=== PATIENT | male | born 1945 | race Caucasian/White ===

== ENCOUNTER 2018-06-11 07:45 | Inpatient (IN) | payer OTHER ==
[~2018-06-11] VITALS: Ht 180.3 cm; Wt 100.3 kg
--- NOTE | 2018-06-11 08:02 | ED DYSPNEA/ASTHMA COMPLAINT ---
History of Present Illness General Chief Complaint: Dyspnea (COPD, CHF, Other) Stated Complaint: FALL/SOB Source: patient, old records, EMS Exam Limitations: poor historian Vital Signs & Intake/Output Vital Signs & Intake/Output Vital Signs Date Time Temp Pulse Resp B/P B/P Pulse O2 O2 Flow FiO2 Mean Ox Delivery Rate 06/14 0913 99 126/64 06/14 0913 99 16/64 06/14 0812 98.9 92 22 122/60 88 Nasal 5.0L Cannula 06/14 07 98.9 88 124/62 06/14 0000 91 Nasal 3.0L Cannula 06/13 2200 97 140/78 91 06/13 2155 97.9 98 20 160/62 91 Nasal 2.0L Cannula 06/13 1750 92 Nasal 2.0L Cannula 06/13 1600 91 Nasal 2.0L Cannula 06/13 1538 19 06/13 1410 97.5 94 91 126/72 91 Nasal 2.0L Cannula 06/13 1050 90 Nasal 2.0L Cannula ED Intake and Output 06/14 0000 06/13 1200 Intake Total 730 120 Output Total 500 600 Balance 230 -480 Intake, IV 10 Intake, Oral 720 120 Number 2 Bowel Movements Output, Urine 500 600 Allergies Coded Allergies: Penicillins (Severe, SWELLING THROAT 06/11/18) Reconcile Medications Albuterol Sulfate (Ventolin Hfa) 90 MCG HFA.AER.AD 2 PUF INH Q4-6 PRN PRN SHORTNESS OF BREATH (Reported) Albuterol Sulfate 2.5 MG/3 ML (0.083 %) VIAL.NEB 1 Vial INH/TIMOTHY Q4P PRN SHORTNESS OF BREATH (Reported) Amiodarone HCl 200 MG TABLET 1 TAB PO DAILY AFIB Aspirin (Aspirin*) 81 MG TAB.CHEW 1 TAB PO DAILY HEART HEALTH (Reported) Cholecalciferol (Vitamin D3) 1,000 UNIT TABLET 1,000 IU PO DAILY LOW VITAMIN D Clonazepam 0.5 MG TABLET 1 TAB PO DAILY ANXIETY (Reported) Cyanocobalamin (Vitamin B-12) 1,000 MCG TABLET 2 TAB PO DAILY low vitamin b12 level Fluticasone/Salmeterol (Advair 250-50 Diskus) 250 MCG-50 MCG/DOSE BLST.W.DEV 1 PUF INH BID BREATHING PROBLEMS (Reported) Gabapentin 600 MG TABLET 1 TAB PO TID UNKNOWN (Reported) Meloxicam 15 MG TABLET 1 TAB PO DAILY PRN PAIN (Reported) Midodrine HCl 5 MG TABLET 1 TAB PO BID BP (Reported) Mirtazapine 15 MG TABLET 1 TAB PO QPM SLEEP (Reported) Moxifloxacin HCl 400 MG TABLET 400 MG PO DAILY pneumonia Omeprazole 20 MG CAPSULE.DR 1 CAP PO BID GI (Reported) Oxycodone HCl/Acetaminophen (Oxycodone-Acetaminophen 10-325) 10 MG-325 MG TABLET 1 TAB PO BIDP PRN PAIN (Reported) Prednisone 10 MG TABLET 1 TAB PO SEE INSTRUCT COPD TAKE 4 PER DAY FOR 2 DAYS TAKE 3/DAY 2 DAYS TAKE 2/DAY 2 DAYS TAKE 1/DAY 2 DAYS Tamsulosin HCl 0.4 MG CAP.ER.24H 1 CAP PO DAILY BPH (Reported) Tizanidine HCl 4 MG TABLET 1 TAB PO QPM PRN SPASMS (Reported) Warfarin Sodium (Coumadin) 4 MG TABLET 1 TAB PO 1700 BLOOD THINNER (Reported) Triage Nurses Notes Reviewed? yes HPI: pt presents for evaluation of dyspnea. he states he feels this way "every morning" but cannot say why he called EMS today. History taking is somewhat limited as the patient answers questions in a very limited manner and his attention seems to drift. Past History Medical History Any Pertinent Medical History? 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 No Review of Systems Review of Systems Constitutional: Reports: no symptoms. EENTM: Reports: no symptoms. Respiratory: Reports: see HPI. Cardiovascular: Reports: no symptoms. GI: Reports: no symptoms. Genitourinary: Reports: no symptoms. Musculoskeletal: Reports: no symptoms. Skin: Reports: no symptoms. Neurological/Psychological: Reports: no symptoms. Hematologic/Endocrine: Reports: no symptoms. Immunologic/Allergic: Reports: no symptoms. All Other Systems: Reviewed and Negative Physical Exam Physical Exam Respiratory: SEE BELOW Comments: Gen.: Well-nourished, well-developed, no acute respiratory distress. Head: Normocephalic, atraumatic. Eyes: Normal inspection bilaterally Ears: Normal inspection bilaterally Nose: Normal inspection Throat/mouth : Moist mucosa Neck: Supple, full range of motion, no goiter Heart: Regular rate and rhythm, no murmurs rubs or gallops Lungs: Decreased air entry over the right chest, normal air entry over the left chest with scattered wheezes bilaterally Chest: Nontender Back: Normal range of motion Abdomen: Soft, nontender, nondistended, normal bowel sounds, well-healed midline surgical scar (due to prior AAA repair) Extremities: Normal range of motion grossly, equal radial pulses, no cyanosis clubbing or edema, no lower extremity edema Neurologic: Cranial nerves grossly intact, speech is clear Skin: warm and dry Psychiatric: Calm, cooperative, no apparent delusions or hallucinations Core Measures ACS in differential dx? Yes CVA/TIA Diagnosis Yes Sepsis Present: No Sepsis Focused Exam Completed? No Progress Differential Diagnosis: AMI, bronchitis, CHF, COPD, pneumonia, pneumothorax, unstable angina Plan of Care: Orders Procedure Date/time Status Lab Add-on Test 06/14 09 Active Transfer patient to 06/14 0906 Active B-TYPE NATRIURETIC PEP (BNP) 06/14 0835 Active BASIC ELECTROLYTES PLUS BUN&CR 06/14 0835 Active XRY-PORTABLE CHEST XRAY 06/14 0823 Active TROPONIN LEVEL 06/14 0823 Active EKG 06/14 0823 Active PROTHROMBIN TIME 06/14 0600 Complete CBC WITHOUT DIFFERENTIAL 06/14 0600 Active OXYGEN SETUP (GEN) 06/14 0527 Complete ARTERIAL BLOOD GAS (GEN) 06/14 UNK Active Lab Add-on Test 06/14 UNK Active Therapeutic Activities 06/13 UNK Complete Gait Training 06/13 UNK Complete Current Medications Sig/Mark Start time Last Medication Dose Stop Time Status Admin Methylprednisolone 40 MG Q8 06/14 1400 AC (Solumedrol) Guaifenesin 600 MG Q12 06/13 2100 AC 06/14 (Mucinex) 0912 Lactobacillus 1 CAP DAILY 06/13 1215 AC 06/14 Acidophilus 0912 (Probiotic) Albuterol Sulfate 3 ML EVERY 4 HRS/AWAKE 06/12 2000 AC 06/14 (Proventil) 0806 Cyanocobalamin 1,000 MCG DAILY 06/12 1456 AC 06/14 (Vitamin B12) 0912 Cholecalciferol 1,000 IU DAILY 06/12 1123 AC 06/14 (Vitamin D) 0913 Amiodarone HCl 200 MG DAILY 06/12 0900 AC 06/14 (Cordarone) 0913 Moxifloxacin HCl 400 MG DAILY 06/12 0900 AC 06/14 (Avelox) 09 Gabapentin 600 MG BID 06/11 2100 AC 06/14 (Neurontin) 09 Midodrine 5 MG BID 06/11 2100 AC 06/14 (Pro-Amatine) 09 Mirtazapine 15 MG QPM 06/11 2100 AC 06/13 (Remeron) 2113 Omeprazole 20 MG BID 06/11 2100 AC 06/14 (Prilosec) 913 Albuterol Sulfate 2 PUF Q4-6 PRN PRN 06/11 1530 AC (Ventolin) Tizanidine HCl 4 MG QPM PRN 06/11 1530 AC (Zanaflex) Tamsulosin HCl 0.4 MG DAILY 06/11 1527 AC 06/14 (Flomax) 09 Clonazepam 0.5 MG DAILY 06/11 1525 AC 06/14 (KlonoPIN) 06/18 1524 0912 Laboratory Tests 06/14/18 0835: Sodium Pending, Potassium Pending, Chloride Pending, Carbon Dioxide Pending, Anion Gap Pending, BUN Pending, Creatinine Pending, BUN/Creatinine Ratio Pending , Troponin I 0.03, Oed-J-Fmyphfiyoer Pept Pending 06/14/18 0558: PT 21.8 H, INR 1.99 H, CBC w Diff Pending, WBC Pending, RBC Pending, Hgb Pending, Hct Pending, MCV Pending, MCH Pending, MCHC Pending, RDW Pending, Plt Count Pending, MPV Pending, Gran % Pending, Lymphocytes % Pending, Monocytes % Pending, Eosinophils % Pending, Basophils % Pending, Absolute Granulocytes Pending, Absolute Lymphocytes Pending, Absolute Monocytes Pending, Absolute Eosinophils Pending, Absolute Basophils Pending Diagnostic Imaging: Discussed w/RAD: Radiology Read. CXR Impression: PATIENT: NAYAN OLSON PRESENT AGE: 72 PATIENT ACCOUNT NO: [id number] : 43 LOCATION: [facility] ORDERING PHYSICIAN: Paco Shah MD SERVICE DATE: 06/11/18 EXAM TYPE: RAD - XRY-PORTABLE CHEST XRAY EXAMINATION: XR PORTABLE CHEST CLINICAL INFORMATION: History of right lobectomy. Dyspnea and wheezing. COMPARISON: None TECHNIQUE: Portable frontal view of the chest was obtained. FINDINGS: The interpretation of the chest abnormalities is limited in the absence of comparison exams. The upper half of the right hemithorax is completely opacified, right hilum is elevated, and there is slight right-sided shift of the cardiomediastinal silhouette. There are vertical, linear opacities of scarring in the right lower lung. Correlate for history of right upper lobectomy; query whether patient received radiation therapy to the right chest, as well. These radiographs - in the absence of comparison exams - do not allow exclusion of a recurrent tumor. Patchy, hazy opacity is present in the left lower lobe. This could represent pneumonia, if in the right clinical context. No pleural effusion or pneumothorax. Cardiac silhouette is enlarged. Cardiac loop recorder projects over the left chest. The visualized bones are intact. IMPRESSION: 1. Volume loss of the right hemithorax from remote right upper lobectomy. The upper half of the right hemithorax is completely opacified, possibly representing chronically loculated pleural effusion and fibrotic changes, although it is not possible to exclude any underlying tumor in the upper chest. There are no comparison exams. 2. Patchy, hazy opacity in the left lower lung could represent pneumonia, if in the right clinical context. 3. Cardiomegaly. DICTATED BY: Adolfo Morris MD DATE/TIME DICTATED:06/11/18829 DRIVER MANAGER:BASSAM DATE/TIME TRANSCRIBED:829 CONFIDENTIAL, DO NOT COPY WITHOUT APPROPRIATE AUTHORIZATION. < Electronically signed in Other Vendor System> SIGNED BY: Adolfo Morris MD 06/11/18 0841 Initial ED EKG: NSR, rate (100), no ST T wave changes Comments: 06/11/2018 10:33:44 AM I have updated Nayan and his family on test results. He offers no complaints currently other than feeling thirsty. His daughter states that he has a history of atrial fibrillation as well as the COPD and lung cancer history is. He has not taken his morning medications. They have contacted his doctor's office in [place] and are expecting and updated medication list shortly. 06/11/2018 1:37:06 PM MOD updated on patient's clinical course including a bloody sputum specimen obtained. Departure Departure Disposition: STILL A PATIENT Condition: Stable Clinical Impression Primary Impression: Pneumonia Qualifiers: Pneumonia type: due to unspecified organism Laterality: left Lung location: lower lobe of lung Qualified Code: J18.1 - Lobar pneumonia, unspecified organism Secondary Impressions: Elevated brain natriuretic peptide (BNP) level, History of lobectomy of lung, History of lung cancer, Renal insufficiency Departure Forms: Customer Survey General Discharge Information Prescriptions: Current Visit Scripts Moxifloxacin HCl 400 MG PO DAILY #5 TAB Prednisone 1 TAB PO SEE INSTRUCT #20 TAB TAKE 4 PER DAY FOR 2 DAYS TAKE 3/DAY 2 DAYS TAKE 2/DAY 2 DAYS TAKE 1/DAY 2 DAYS Cyanocobalamin (Vitamin B-12) 2 TAB PO DAILY #60 TAB Cholecalciferol (Vitamin D3) 1,000 IU PO DAILY #30 TAB Amiodarone HCl 1 TAB PO DAILY #30 TAB Admission Note Spoke With: Regino FRANKLIN,Letitia Rivera Documentation of Exam: Documentation of any treatments & extenuating circumstances including Concerns Regarding Discharge (functional status, medication knowledge or non-compliance, living conditions, etc.) that warrant an admission rather than observation: Patient presents for worsening shortness of breath, productive cough and fever. His chest x-ray reveals a left lower lobe infiltrate. The patient has a history of COPD and prior lobectomy secondary to lung cancer. Upon presentation to the emergency department patient's oxygen saturation was only 91% despite prehospital treatment with a DuoNeb and Solu-Medrol. I do not feel this patient can be safely treated as an outpatient. I feel the exertion of outpatient treatment would worsen his hypoxia and potentially provoke acute coronary syndrome respiratory failure and mortality. Feels patient requires hospitalization for continued nebulized bronchodilators and treatment of his pneumonia with IV antibiotics and oxygen supplementation as needed. The patient did not respond initially to treatment and infectious disease consultation for pulmonology consultation should be considered. Given this patient's advanced age and multiple medical comorbidities including his COPD and prior lung cancer I feel his treatment will be prolonged and potentially comp located. Require a multiple day hospitalization. Critical Care Note Critical Care Note Critical Care Time: 30-74 min
--- NOTE | 2018-06-11 08:41 | RADIOLOGY REPORT ---
EXAMINATION: XR PORTABLE CHEST CLINICAL INFORMATION: History of right lobectomy. Dyspnea and wheezing. COMPARISON: None TECHNIQUE: Portable frontal view of the chest was obtained. FINDINGS: The interpretation of the chest abnormalities is limited in the absence of comparison exams. The upper half of the right hemithorax is completely opacified, right hilum is elevated, and there is slight right-sided shift of the cardiomediastinal silhouette. There are vertical, linear opacities of scarring in the right lower lung. Correlate for history of right upper lobectomy; query whether patient received radiation therapy to the right chest, as well. These radiographs - in the absence of comparison exams - do not allow exclusion of a recurrent tumor. Patchy, hazy opacity is present in the left lower lobe. This could represent pneumonia, if in the right clinical context. No pleural effusion or pneumothorax. Cardiac silhouette is enlarged. Cardiac loop recorder projects over the left chest. The visualized bones are intact. IMPRESSION: 1. Volume loss of the right hemithorax from remote right upper lobectomy. The upper half of the right hemithorax is completely opacified, possibly representing chronically loculated pleural effusion and fibrotic changes, although it is not possible to exclude any underlying tumor in the upper chest. There are no comparison exams. 2. Patchy, hazy opacity in the left lower lung could represent pneumonia, if in the right clinical context. 3. Cardiomegaly.
[2018-06-11 09:02] LABS: ABSOLUTE BASOPHIL COUNT 0 /CUMM (0.0-0.2); ABSOLUTE EOSINOPHIL COUNT 0.1 /CUMM (0.0-0.7); ABSOLUTE GRANULOCYTE CT 8.2 /CUMM (1.4-6.5); ABSOLUTE LYMPH COUNT 0.6 /CUMM (1.2-3.4); ABSOLUTE MONOCYTE COUNT 0.6 /CUMM (0.10-0.60); BASOPHIL % 0.1 % (0.0-2.0); EOSINOPHIL % 0.6 % (0-5); GRANULOCYTE % 86.7 % (42.2-75.2); HEMATOCRIT 33.3 % (42-52); MEAN CORPUSCULAR HGB 29.6 PG (27.0-31.0); MEAN CORPUSCULAR HGB CONC 33.3 G/DL (33.0-37.0); MEAN PLATELET VOLUME 8.3 FL (7.4-10.4); PLATELET COUNT 211 /CUMM (130-400); RBC DISTRIBUTION WIDTH 17.9 % (11.5-14.5); RED BLOOD CELL CT 3.74 /CUMM (4.70-6.10); WHITE BLOOD CELL COUNT 9.4 /CUMM (4.8-10.8)
--- NOTE | 2018-06-11 11:21 | History & Physical ---
Rubina Gerber MD 06/11/18 1121: General Information and HPI MD Statement: I have seen and personally examined JORDAN OLSON and documented this H&P. The patient is a 72 year old M who presented with a patient stated chief complaint of altered mental status and shortness of breath. Source of Information: patient, family Exam Limitations: no limitations History of Present Illness: 72 year old male with a PMH significant for COPD, afib, lung cancer sp right upper lobectomy with one year of chemo and radiation, vascular disease sp AAA repair 7 years ago, afib with implanted recorder, that is BIBA for complaints of dyspnea and altered mental status. Much of the history was given by the and daughter as the patient was sleepy and deferred to them to speak. He did nod to confirm information given was correct. The patient and his are in the area from [place] where they live to visit their daughter. They arrived on 06/02. Soon after arrival the daughter noticed that her father had worsening confusion and dizziness, and was seen stumbling several times. His short term memory was also noted to be worse. She also noted that her father was coughing more the past few days. And it was noted that he had reddish brownish sputum and shortness of breath. The patient's noted that this has been going on for several weeks. This morning early, the patient fell out of bed onto the floor. It was a witnessed fall and there was no head strike, no LOC, no seizure activity noted. The patient's called the ambulance who brought him here. En route his O2 saturation was found to be in the 80's so he was put on O2 and given duoneb and solumedrol. After these interventions, he was saturating 91% when he arrived at our ED. The patient is not on any home oxygen. The only time he has ever needed it at home was 2 years ago after a COPD exacerbation. The patient is a current smoker, 2 cigarettes per day with a past history 2 packs per day years ago. The patient was reportedly confused at home but in the emergency department had clear cognition. The patient has no history of a PE or stroke, no myocardial infarction. He denied any recent chest pain, headaches but did admit to on and off blurry vision the past couple months. He denies any pedal edema but admits to weak legs and hip pain bilaterally that is chronic. The patient's also admits to very slight tremors at rest for several months. He has also had on and off dizziness. Of note this dizziness got better when he started his treatment for A. fib. The last time he was extremely dizzy was on his way to the low vision therapist several months ago, he ended up being admitted to a local hospital in [place], A. fib was found and treatment was started. His next appointment with his low vision therapist, Dr. Landry Cabezas is in one month, phone number is [phone]. His turbo operator is Dr. Shelton Bryant in the same group. His PCP is Dr. Jovon Morin at [phone] Finally, the patient's noted that he has had issues with bleeding recently. He got a cut on his right leg that apparently would not stop bleeding and saturated the bandage and got on his bed sheets this morning. The patient is on 4 mg of warfarin every day. While in the emergency department, patient had one episode of hemoptysis. A she is retired and lives with his in [place]. No alcohol use, no drugs. 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 Psychosocial History Smoking Status: Current Everyday Smoker ETOH Use: denies use Illicit Drug Use: denies illicit drug use Functional Ability ADLs Independent: dressing, eating, toileting, bathing. Review of Systems Review of Systems Constitutional: Reports: diaphoresis, weakness. EENTM: Reports: blurred vision. Cardiovascular: Reports: no symptoms. Respiratory: Reports: cough, hemoptysis, short of breath, sputum production, wheezing. GI: Reports: no symptoms. Genitourinary: Reports: no symptoms. Musculoskeletal: Reports: joint pain. Skin: Reports: no symptoms. Neurological/Psychological: Reports: cognitive dysfunction. Hematologic/Endocrine: Reports: bleeding. Immunologic/Allergic: Reports: no symptoms. Exam & Diagnostic Data Last 24 Hrs of Vital Signs/I&O Vital Signs Date Time Temp Pulse Resp B/P B/P Pulse O2 O2 Flow FiO2 Mean Ox Delivery Rate 06/11 1342 98.5 78 20 107/61 96 Nasal 1.0L Cannula 06/11 1337 98.5 78 20 107/61 96 Nasal 1.0L Cannula 06/11 1247 94 Nasal 1.0L Cannula 06/11 1132 98.1 74 20 112/60 94 Nasal 1.0L Cannula 06/11 0932 94 Nasal 2.0L Cannula 06/11 0931 99.9 92 20 109/54 93 Nasal 2.0L Cannula 06/11 0840 100.0 06/11 0814 101.1 06/11 0750 101.2 102 24 125/56 91 Nasal 4.0L Cannula Intake & Output 06/11 1600 06/11 0800 06/11 0000 Intake Total Output Total 300 100 Balance -300 -100 Output, Urine 300 100 Patient 225 lb 225 lb Weight Physical Exam General Appearance Alert, Oriented X3, Cooperative, No Acute Distress Skin No Rashes, No Breakdown, No Significant Lesion Skin Temp/Moisture Exam: Warm/Dry Sepsis Skin Exam (color): Normal for Ethnicity HEENT Atraumatic, PERRLA, EOMI, Mucous Membr. moist/pink, patient had one episode hemoptysis while in ED Neck Supple, No JVD Cardiovascular Regular Rate, Normal S1, Normal S2, No Murmurs Lungs wheezing in all lung edgar, no crackles Abdomen Normal Bowel Sounds, Soft, No Tenderness Neurological Normal Speech, Strength at 5/5 X4 Ext, Normal Tone, Sensation Intact, Cranial Nerves 3-12 NL Extremities No Clubbing, No Cyanosis, No Edema, Normal Pulses, No Tenderness/ Swelling Vascular Normal Pulses, Pulses Symmetrical Last 24 Hrs of Labs/Franco: Laboratory Tests 06/11/18 1427: CBC w Diff NO MAN DIFF REQ, RBC 3.82 L, MCV 89.2, MCH 29.7, MCHC 33.4, RDW 18.2 H, MPV 8.0, Gran % 94.8 H, Lymphocytes % 4.3 L, Monocytes % 0.8 L, Eosinophils % 0, Basophils % 0.1, Absolute Granulocytes 8.2 H, Absolute Lymphocytes 0.4 L, Absolute Monocytes 0.1, Absolute Eosinophils 0, Absolute Basophils 0 06/11/18 1236: PT 93.9 *H, INR 8.43 *H 06/11/18 0925: Urine Color MARIAELENA, Urine Clarity CLEAR, Urine pH 6.0, Ur Specific Vaiden >= 1.030, Urine Protein 30 H, Urine Ketones NEG, Urine Nitrite NEG, Urine Bilirubin NEG, Urine Urobilinogen 0.2, Ur Leukocyte Esterase NEG, Ur Microscopic SEDIMENT EXAMINED, Urine RBC 3-5, Urine WBC 1-3 H, Ur Epithelial Cells FEW, Urine Bacteria FEW H, Hyaline Casts 1-3 H, Urine Hemoglobin SMALL H, Urine Glucose NEG 06/11/18 0840: Anion Gap 10, Estimated GFR 50 L, BUN/Creatinine Ratio 17.1, Glucose 116 H, Lactic Acid 0.8, Calcium 8.4, Magnesium 2.3, Troponin I 0.02, Saj-B-Nucsanfeowb Pept 2370 H, PT 89.7 *H, INR 8.06 *H, D-Dimer High Sensitivty 221, CBC w Diff MAN DIFF ORDERED, RBC 3.74 L, MCV 89.0, MCH 29.6, MCHC 33.3, RDW 17.9 H, MPV 8.3, Gran % 86.7 H, Lymphocytes % 6.3 L, Monocytes % 6.3, Eosinophils % 0.6, Basophils % 0.1, Absolute Granulocytes 8.2 H, Segmented Neutrophils 79 H, Band Neutrophils 6 H, Absolute Lymphocytes 0.6 L, Lymphocytes 10 L, Monocytes 5, Absolute Monocytes 0.6, Absolute Eosinophils 0.1, Absolute Basophils 0, Platelet Estimate ADEQUATE, Hypochromic-Microcytic 2+, Anisocytosis 1+ Microbiology 06/11 141 URINE ROUT: Legionella Antigen - ORD 06/11 141 URINE ROUT: Streptococcus pneumoniae Antigen (M - ORD 06/11 1225 LOWER RESP: Respiratory Culture - COLB 06/11 1225 LOWER RESP: Gram Stain - COLB 06/11 0858 BLOOD: Blood Culture - RECD 06/11 08 BLOOD: Blood Culture - RECD Assessment/Plan Assessment: 72 year old male with a PMH significant for COPD, afib, lung cancer sp right upper lobectomy 7 years ago with one year of chemo and radiation, vascular disease sp AAA repair also 7 years ago, afib with implanted loop recorder on Coumadin, that is BIBA for complaints of dyspnea and altered mental status. The patient has been apparently deteriorating over the past couple months, with mild cough with brownish/reddish sputum, on and off dizziness and blurriness of the eyes, and more recently, confusion and unsteadiness on his feet. The patient has also recently had uncontrolled bleeding. He is on Coumadin 4 mg daily and as per his , his pills have been mixed up recently and he may have taken more than the doses been prescribed. The patient was found in the field to be hypoxic and was placed on supplemental oxygen. He was given Solu-Medrol as well as the field. The patient sees a PCP and low vision therapist in [place], phone numbers in the HPI. Of note, patient is severely allergic to penicillin, has anaphylactic reaction. Vitals in the urgency room were temperature 101.2 which decreased to 99, heart rate 102 which decreased to 90s, respiratory rate 24, blood pressure 125/56, 91% oxygen saturation on 4 L nasal cannula which was tapered down to 2 L, 94% oxygen saturation. Labs showed a WBC count of 9.4 with bandemia, hemoglobin 11.4, no old labs available, creatinine 1.4, BNP 2370, negative troponin, INR 8.09 with repeat INR of 8.43 Chest x-ray showed evidence of remote right upper lobectomy, upper half right hemithorax completely opacified which signifies plural effusion or fibrotic changes or tumor recurrence. Additionally seen was left lower lobe opacity. EKG showed a rate of 100 with a QTC of 470 and flipped P waves significant for ectopic atrial beats. In the ED, patient had blood cultures 2 taken and got 1 dose of moxifloxacin. Assessment -Acute hypoxic respiratory failure secondary to pneumonia/lung cancer recurrence /COPD: Oxygen saturation has increased on supplemental oxygen, the patient was started on moxifloxacin. Chest x-ray shows evidence of pneumonia as well as potential recurrence of cancer/pleural effusionfibrotic changes. The patient is septic with an elevated heart rate and temperature up to 102 on admission with a suspected source of infection being the lung. -Hemoptysis: Patient had 1 episode of hemoptysis with about a teaspoon of blood produced. He recently had brownish reddish sputum for the past few weeks. -Supratherapeutic INR: Patient usually takes 4 mg of warfarin every day was found today to have INR over 8 -Altered mental status and falls: Patient recently had unsteadiness on his feet , confusion, poor memory, and a fall out of bed. -History of lung cancer: Right upper lobe lobectomy 7 years ago with chemotherapy and radiation for 1 year. The patient has not followed up with an oncologist for several years. -Dysphagia: Patient notices difficulty in swallowing pills, no issues with swallowing food or drink. -History of A. fib with implanted loop recorder: Patient sees a low vision therapist and EP down in [place], has an appointment with them in about one month. The patient is on warfarin for anticoagulation and amiodarone. He also has implantable loop recorder. Plan -Admit patient to general medical floors for evaluation and treatment -Start patient on moxifloxacin 400 mg daily -Solu-Medrol 40 mg every 8 with continued reassessment of pulmonary status and tapering as possible -4 AK I we will give patient has normal saline at a rate of 50-75 1 bag as we are not sure of his cardiac status. -Patient has no signs of CHF on exam, no edema, no lung crackles, we will defer echocardiogram unless it becomes clinically evident that he is in fluid overload or further deteriorating on current treatment plan -Order CT head without contrast as patient has supratherapeutic INR and did fall earlier today -Also have ordered CT of the chest without contrast as patient has a history of lung cancer, recurrent hemoptysis, and question of recurrence of mass on his chest x-ray. -Follow up blood cultures and lower respiratory cultures, urine Legionella and strep -Type and cross blood and repeat CBC to evaluate for decreasing hemoglobin with his hemoptysis -Give vitamin K by mouth 10 mg for INR reversal with repeat INR -Pulmonary consult with Dr. Ann -We will order a swallow evaluation as patient has had recent issues with swallowing pills but we will continue to feed him in the meantime as he has noted no issues on swallowing food and drink. -Physical therapy consult as patient has had recent unsteadiness on his feet. Full Code Heart healthy diet DVT prophylaxis with Alps only As Ranked By This Provider Problem List: 1. History of lobectomy of lung 2. History of lung cancer 3. Renal insufficiency 4. Elevated brain natriuretic peptide (BNP) level 5. Pneumonia Qualifiers Pneumonia type: due to unspecified organism Laterality: left Lung location: lower lobe of lung Qualified Code: J18.1 - Lobar pneumonia, unspecified organism 6. Hemoptysis 7. Swallowing difficulty 8. Supratherapeutic INR Core Measures/Misc (08/18) Acute Coronary Syndrome ACS Diagnosis: No Congestive Heart Failure Congestive Heart Failure Diagnosis No Cerebrovascular Accident CVA/TIA Diagnosis: No VTE (View Protocol) VTE Risk Factors Immobility No Mechanical VTE Prophylaxis d/t N/A MechProphylax Ordered No VTE Pharm Prophylaxis d/t Medical Contraindication Sepsis (View protocol) Sepsis Present: Yes If YES complete Sepsis Event Note If YES complete Sepsis Event Note Regino FRANKLIN,Letitia 06/11/18 1329: General Information and HPI Allergies/Medications Home Med list Albuterol Sulfate (Ventolin Hfa) 90 MCG HFA.AER.AD 2 PUF INH Q4-6 PRN PRN SHORTNESS OF BREATH (Reported) Albuterol Sulfate 2.5 MG/3 ML (0.083 %) VIAL.NEB 1 Vial INH/TIMOTHY Q4P PRN SHORTNESS OF BREATH (Reported) Amiodarone HCl 200 MG TABLET 1 TAB PO BID HEART (Reported) Aspirin (Aspirin*) 81 MG TAB.CHEW 1 TAB PO DAILY HEART HEALTH (Reported) Clonazepam 0.5 MG TABLET 1 TAB PO DAILY ANXIETY (Reported) Fluticasone/Salmeterol (Advair 250-50 Diskus) 250 MCG-50 MCG/DOSE BLST.W.DEV 1 PUF INH BID BREATHING PROBLEMS (Reported) Gabapentin 600 MG TABLET 1 TAB PO TID UNKNOWN (Reported) Meloxicam 15 MG TABLET 1 TAB PO DAILY PRN PAIN (Reported) Midodrine HCl 5 MG TABLET 1 TAB PO BID BP (Reported) Mirtazapine 15 MG TABLET 1 TAB PO QPM SLEEP (Reported) Omeprazole 20 MG CAPSULE.DR 1 CAP PO BID GI (Reported) Oxycodone HCl/Acetaminophen (Oxycodone-Acetaminophen 10-325) 10 MG-325 MG TABLET 1 TAB PO BIDP PRN PAIN (Reported) Tamsulosin HCl 0.4 MG CAP.ER.24H 1 CAP PO DAILY BPH (Reported) Tizanidine HCl 4 MG TABLET 1 TAB PO QPM PRN SPASMS (Reported) Warfarin Sodium (Coumadin) 4 MG TABLET 1 TAB PO 1700 BLOOD THINNER (Reported) Core Measures/Misc (08/18) Sepsis (View protocol) If YES complete Sepsis Event Note If YES complete Sepsis Event Note Attending MD Review Statement Attending Statement Attending MD Statement: examined this patient, discuss w/resident/PA/NET MOBILE DEVELOPER, agreed w/resident/PA/NET MOBILE DEVELOPER, reviewed EMR data (avail), discussed with nursing, reviewed images Attending Assessment/Plan: 72-year-old male past medical history of COPD not on home oxygen, lung cancer status post right upper lobectomy and treatment 7 years ago, AAA repair in the past and atrial fibrillation with a loop recorder. He is here from [place] visiting his daughter and for the past week has been having increasing shortness of breath. The family also feels he's been confused and mixing up his medications and generally feeling weak. They brought him in today because he fell out of bed and was having visible difficulty breathing. He is noted to be in acute hypoxemic respiratory failure on arrival with a saturation of 81% and he meets criteria for sepsis in terms of fever 101, tachycardia of 102 and bandemia on his differential with a chest x-ray showing a likely opacity in the left lower lobe. At this point will treat him for community-acquired pneumonia. He is pen allergic and gets throat swelling with penicillin so will use IV moxifloxacin after we get blood cultures, sputum cultures. His INR is elevated and will double check that. He may be taking more Coumadin than prescribed and will get a CT head to make sure that the fall and with the elevated INR there are no sequelae. We'll continue his other medications including his amnio, tamsulosin, clonazepam, aspirin. With a super therapeutic INR will put Alps on for DVT prophylaxis. If he doesn't improve in the next 24-48 hours will keep a low threshold to get a CT chest to better define this right upper lobe chronic opacity probably related to previous cancer. He is wheezing and appears to have a COPD exacerbation so we'll give him a short course of steroids as well.
[2018-06-11] MEDS ORDERED: VENTOLIN HFA18 GM INH (11:51)
[2018-06-11] MEDS ORDERED: ADVAIR 250-501 EACH INH (11:51)
[2018-06-11] MEDS ORDERED: ASPIRIN81 M4 PO (11:52)
[2018-06-11] MEDS ORDERED: AMIODARONE HCL200 M2 PO (11:52)
[2018-06-11] MEDS ORDERED: CLONAZEPAM0.5 M2 PO (11:53)
[2018-06-11] MEDS ORDERED: TAMSULOSIN HCL0.4 M1 PO (11:54)
[2018-06-11] MEDS ORDERED: GABAPENTIN600 M1 PO (11:54)
[2018-06-11] MEDS ORDERED: COUMADIN4 M1 PO (11:54)
[2018-06-11] MEDS ORDERED: MIRTAZAPINE15 M2 PO (11:55)
[2018-06-11] MEDS ORDERED: MELOXICAM15 M1 PO (11:55)
[2018-06-11] MEDS ORDERED: MIDODRINE HCL5 M1 PO (11:56)
[2018-06-11] MEDS ORDERED: OMEPRAZOLE20 M2 PO (11:56)
[2018-06-11] MEDS ORDERED: OXYCODONE-ACET1 EAC1 PO (11:56)
[2018-06-11] MEDS ORDERED: TIZANIDINE HCL4 M1 PO (11:57)
[2018-06-11] MEDS ORDERED: ALBUTEROL2.5 MG/3 M INH/SOL (11:58)
[2018-06-11 12:00] LABS: PT 89.7 SEC (9.4-12.5)
--- NOTE | 2018-06-11 13:00 | Admission Certification ---
Admission Certification Certification Statement - As attending physician, I certify that at the time of - admission, based on clinical presentation, severity of - symptoms, need for further diagnostic testing and - therapeutic interventions, and risk of adverse outcomes - without in-hospital treatment, in my clinical assessment, - this patient requires an acute hospital stay for a minimum - of two nights or longer. I have also considered psychsocial - factors such as support system, advanced age, financial - issues, cognitive issues, and failed out-patient treatments, - past re-admission history, safety of patient, and lack of - compliance as applicable. Specific rationale supporting this admission is: Community-acquired pneumonia with acute hypoxemic respiratory failure in patient with underlying COPD
[2018-06-11 13:25] LABS: PT 93.9 SEC (9.4-12.5)
[2018-06-11 13:42] VITALS: BP 107/61
[2018-06-11 14:43] LABS: ABSOLUTE BASOPHIL COUNT 0 /CUMM (0.0-0.2); ABSOLUTE EOSINOPHIL COUNT 0 /CUMM (0.0-0.7); ABSOLUTE GRANULOCYTE CT 8.2 /CUMM (1.4-6.5); ABSOLUTE LYMPH COUNT 0.4 /CUMM (1.2-3.4); ABSOLUTE MONOCYTE COUNT 0.1 /CUMM (0.10-0.60); BASOPHIL % 0.1 % (0.0-2.0); EOSINOPHIL % 0 % (0-5); GRANULOCYTE % 94.8 % (42.2-75.2); HEMATOCRIT 34.1 % (42-52); MEAN CORPUSCULAR HGB 29.7 PG (27.0-31.0); MEAN CORPUSCULAR HGB CONC 33.4 G/DL (33.0-37.0); MEAN CORPUSCULAR VOLUME 89.2 FL (80.0-94.0); PLATELET COUNT 204 /CUMM (130-400); RBC DISTRIBUTION WIDTH 18.2 % (11.5-14.5); RED BLOOD CELL CT 3.82 /CUMM (4.70-6.10); WHITE BLOOD CELL COUNT 8.7 /CUMM (4.8-10.8)
--- NOTE | 2018-06-11 15:12 | CT SCAN REPORT ---
EXAMINATION: CT HEAD WITHOUT CONTRAST CLINICAL INFORMATION: High INR. Fell off bed. No head strike witnessed. COMPARISON: None. TECHNIQUE: Contiguous axial imaging was performed from the skull base to vertex without intravenous administration of contrast. DLP: 701 mGy-cm. FINDINGS: There is no intracranial hemorrhage, large infarction, or mass lesion. There is no extra-axial collection. There is mild diffuse brain parenchymal volume loss with prominence of the ventricles and sulci. No evidence of hydrocephalus. Mild opacification of bilateral mastoid air cells. Small bilateral maxillary sinus retention cysts. There is a nonspecific calcification within the subarachnoid space of the right sylvian fissure. IMPRESSION: No acute intracranial abnormality. Mild diffuse brain parenchymal volume loss.
--- NOTE | 2018-06-11 16:01 | CT SCAN REPORT ---
EXAMINATION: CT CHEST WITHOUT CONTRAST CLINICAL INFORMATION: Hypoxia. History of lung cancer. Increased INR. Fell off bed. COMPARISON: Chest radiograph from the same date TECHNIQUE: Multidetector volumetric CT imaging of the chest was done. Axial MIP volume rendering provided. Sagittal and coronal reformatted images were obtained. DLP: 460.4 mGy-cm FINDINGS: LUNGS: Chain josue are present in the right suprahilar region, consistent with prior right upper lobectomy. The superior portions of the right upper and right lower lobes are densely opacified with volume loss and surrounding architectural distortion, most compatible with chronic fibrotic changes from prior radiation. Sensitivity for superimposed lesions in this region is limited without intravenous contrast material. There are patchy foci of round glass attenuation throughout the upper lobes. A few these regions are somewhat rounded with internal near solid components. Mild interlobular septal thickening is present at the component at the right lung base posteriorly. Additional interlobular septal thickening is present at the lingula. No discrete pulmonary nodules are identified. Airways are clear. MEDIASTINUM: Heart is normal in size. No pericardial effusion. Calcific atherosclerosis is present in the thoracic aorta and coronary arteries. There is reflux of food material into the esophagus, almost reaching the cervical esophagus. No hilar or mediastinal adenopathy. PLEURA: Multiple calcified pleural plaques are present bilaterally. The partially calcified pleural plaque at the right costovertebral angle inferiorly measures up to 1 cm in thickness with peripheral calcifications. No effusion. AXILLA: No lymphadenopathy. UPPER ABDOMEN: Unremarkable. OSSEOUS STRUCTURES: Multilevel degenerative disc disease present in the thoracic spine. There is a chronic appearing superior endplate fracture at the T6 vertebral body with a superimposed Schmorl's node. No focal osseous lesions are identified. IMPRESSION: 1. Status post right upper lobectomy. Dense fibrosis and volume loss in the superior segments of the right lower and middle lobes near the apex of the right hemithorax, most consistent with changes of prior radiation therapy. No superimposed lesions are identified. 2. Patchy multifocal groundglass airspace opacities with small consolidative/solid components. This may be due to multifocal pneumonia, though correlation with type of the patient's cancer is advised as multifocal adenocarcinoma in situ of the lung can have a similar appearance, particularly given the context of underlying asbestos exposure. 3. Areas of subtle interlobular septal thickening suggesting early fibrotic change, also likely related to prior asbestos exposure. 4. Reflux of food material into the upper esophagus, presenting a risk for aspiration.
[2018-06-11 16:49] VITALS: BP 110/62
--- NOTE | 2018-06-11 18:34 | Cons- Pulmonary ---
General Information and HPI Consulting Request Date of Consult: 06/11/18 Requested By: med team History of Present Illness: 72 year old male with a PMH significant for COPD, afib, lung cancer sp right upper lobectomy with one year of chemo and radiation, vascular disease sp AAA repair 7 years ago, afib with implanted recorder, that is BIBA for complaints of dyspnea and altered mental status. Much of the history was given by the and daughter as the patient was sleepy and deferred to them to speak. He did nod to confirm information given was correct. The patient and his are in the area from [place] where they live to visit their daughter. They arrived on 06/02. Soon after arrival the daughter noticed that her father had worsening confusion and dizziness, and was seen stumbling several times. His short term memory was also noted to be worse. She also noted that her father was coughing more the past few days. And it was noted that he had reddish brownish sputum and shortness of breath. The patient's noted that this has been going on for several weeks. This morning early, the patient fell out of bed onto the floor. It was a witnessed fall and there was no head strike, no LOC, no seizure activity noted. The patient's called the ambulance who brought him here. En route his O2 saturation was found to be in the 80's so he was put on O2 and given duoneb and solumedrol. After these interventions, he was saturating 91% when he arrived at our ED. The patient is not on any home oxygen. The only time he has ever needed it at home was 2 years ago after a COPD exacerbation. The patient is a current smoker, 2 cigarettes per day with a past history 2 packs per day years ago. The patient was reportedly confused at home but in the emergency department had clear cognition. The patient has no history of a PE or stroke, no myocardial infarction. He denied any recent chest pain, headaches but did admit to on and off blurry vision the past couple months. He denies any pedal edema but admits to weak legs and hip pain bilaterally that is chronic. The patient's also admits to very slight tremors at rest for several months. He has also had on and off dizziness. Of note this dizziness got better when he started his treatment for A. fib. The last time he was extremely dizzy was on his way to the patient services technician several months ago, he ended up being admitted to a local hospital in [place], A. fib was found and treatment was started. His next appointment with his patient services technician, Dr. Landry Cabezas is in one month, phone number is [phone]. His aboriginal home school liaison officer is Dr. Shelton Bryant in the same group. His PCP is Dr. Jovon Morin at [phone] Finally, the patient's noted that he has had issues with bleeding recently. He got a cut on his right leg that apparently would not stop bleeding and saturated the bandage and got on his bed sheets this morning. The patient is on 4 mg of warfarin every day. While in the emergency department, patient had one episode of hemoptysis. A she is retired and lives with his in [place]. No alcohol use, no drugs. His lung cancer was six yrs ago and had surg initially sub followed by xrt and chemo simultaneously Says he has been cancer free Allergies/Medications Allergies: Coded Allergies: Penicillins (Severe, SWELLING THROAT 06/11/18) Home Med List: Albuterol Sulfate (Ventolin Hfa) 90 MCG HFA.AER.AD 2 PUF INH Q4-6 PRN PRN SHORTNESS OF BREATH (Reported) Albuterol Sulfate 2.5 MG/3 ML (0.083 %) VIAL.NEB 1 Vial INH/TIMOTHY Q4P PRN SHORTNESS OF BREATH (Reported) Amiodarone HCl 200 MG TABLET 1 TAB PO BID HEART (Reported) Aspirin (Aspirin*) 81 MG TAB.CHEW 1 TAB PO DAILY HEART HEALTH (Reported) Clonazepam 0.5 MG TABLET 1 TAB PO DAILY ANXIETY (Reported) Fluticasone/Salmeterol (Advair 250-50 Diskus) 250 MCG-50 MCG/DOSE BLST.W.DEV 1 PUF INH BID BREATHING PROBLEMS (Reported) Gabapentin 600 MG TABLET 1 TAB PO TID UNKNOWN (Reported) Meloxicam 15 MG TABLET 1 TAB PO DAILY PRN PAIN (Reported) Midodrine HCl 5 MG TABLET 1 TAB PO BID BP (Reported) Mirtazapine 15 MG TABLET 1 TAB PO QPM SLEEP (Reported) Omeprazole 20 MG CAPSULE. 1 CAP PO BID GI (Reported) Oxycodone HCl/Acetaminophen (Oxycodone-Acetaminophen 10-325) 10 MG-325 MG TABLET 1 TAB PO BIDP PRN PAIN (Reported) Tamsulosin HCl 0.4 MG CAP.ER.24H 1 CAP PO DAILY BPH (Reported) Tizanidine HCl 4 MG TABLET 1 TAB PO QPM PRN SPASMS (Reported) Warfarin Sodium (Coumadin) 4 MG TABLET 1 TAB PO 1700 BLOOD THINNER (Reported) Review of Systems Review of Systems Constitutional: Reports: see HPI. Past History Travel History Traveled to [place] past 21 day No Medical History Blood Transfusion Hx: No Neurological: NONE EENT: NONE Cardiovascular: AFIB, hypertension Respiratory: COPD, PRIOR LUNG CA Gastrointestinal: INGUINAL HERNIA Hepatic: NONE Renal: NONE Musculoskeletal: NONE Psychiatric: anxiety Endocrine: NONE Blood Disorders: NONE Cancer(s): lung cancer Surgical History Surgical History: AAA REPAIR, RIGHT LOBECTOMY, IMPLANTED PATTERN DUPLICATOR Psychosocial History Where Do You Live? Home Services at Home: None Smoking Status: Former Smoker ETOH Use: denies use Illicit Drug Use: denies illicit drug use Functional Ability ADLs Independent: dressing, eating, toileting, bathing. Exam & Diagnostic Data Last 24 Hrs of Vital Signs/I&O Vital Signs Date Time Temp Pulse Resp B/P B/P Pulse O2 O2 Flow FiO2 Mean Ox Delivery Rate 06/11 1649 98.1 72 18 110/62 94 Nasal 1.0L Cannula 06/11 1645 Nasal 1.0L Cannula 06/11 1538 98.3 78 19 114/57 94 Nasal Cannula 06/11 1342 98.5 78 20 107/61 96 Nasal 1.0L Cannula 06/11 1337 98.5 78 20 107/61 96 Nasal 1.0L Cannula 06/11 1247 94 Nasal 1.0L Cannula 06/11 1132 98.1 74 20 112/60 94 Nasal 1.0L Cannula 06/11 0932 94 Nasal 2.0L Cannula 06/11 0931 99.9 92 20 109/54 93 Nasal 2.0L Cannula 06/11 0840 100.0 06/11 0814 101.1 06/11 0750 101.2 102 24 125/56 91 Nasal 4.0L Cannula Intake & Output 06/11 1600 06/11 0800 06/11 0000 Intake Total Output Total 300 100 Balance -300 -100 Output, Urine 300 100 Patient 225 lb 225 lb Weight Last 48 Hrs of Labs/Franco: Laboratory Tests 06/11/18 1427: CBC w Diff NO MAN DIFF REQ, RBC 3.82 L, MCV 89.2, MCH 29.7, MCHC 33.4, RDW 18.2 H, MPV 8.0, Gran % 94.8 H, Lymphocytes % 4.3 L, Monocytes % 0.8 L, Eosinophils % 0, Basophils % 0.1, Absolute Granulocytes 8.2 H, Absolute Lymphocytes 0.4 L, Absolute Monocytes 0.1, Absolute Eosinophils 0, Absolute Basophils 0 06/11/18 1236: PT 93.9 *H, INR 8.43 *H 06/11/18 0925: Urine Color MARIAELENA, Urine Clarity CLEAR, Urine pH 6.0, Ur Specific [place] >= 1.030, Urine Protein 30 H, Urine Ketones NEG, Urine Nitrite NEG, Urine Bilirubin NEG, Urine Urobilinogen 0.2, Ur Leukocyte Esterase NEG, Ur Microscopic SEDIMENT EXAMINED, Urine RBC 3-5, Urine WBC 1-3 H, Ur Epithelial Cells FEW, Urine Bacteria FEW H, Hyaline Casts 1-3 H, Urine Hemoglobin SMALL H, Urine Glucose NEG 06/11/18 0840: Anion Gap 10, Estimated GFR 50 L, BUN/Creatinine Ratio 17.1, Glucose 116 H, Lactic Acid 0.8, Calcium 8.4, Magnesium 2.3, Troponin I 0.02, Lhq-P-Pkaiusnnozk Pept 2370 H, PT 89.7 *H, INR 8.06 *H, D-Dimer High Sensitivty 221, CBC w Diff MAN DIFF ORDERED, RBC 3.74 L, MCV 89.0, MCH 29.6, MCHC 33.3, RDW 17.9 H, MPV 8.3, Gran % 86.7 H, Lymphocytes % 6.3 L, Monocytes % 6.3, Eosinophils % 0.6, Basophils % 0.1, Absolute Granulocytes 8.2 H, Segmented Neutrophils 79 H, Band Neutrophils 6 H, Absolute Lymphocytes 0.6 L, Lymphocytes 10 L, Monocytes 5, Absolute Monocytes 0.6, Absolute Eosinophils 0.1, Absolute Basophils 0, Platelet Estimate ADEQUATE, Hypochromic-Microcytic 2+, Anisocytosis 1+ Assessment/Plan Impression/Plan: CT chest LUNGS: Chain josue are present in the right suprahilar region, consistent with prior right upper lobectomy. The superior portions of the right upper and right lower lobes are densely opacified with volume loss and surrounding architectural distortion, most compatible with chronic fibrotic changes from prior radiation. Sensitivity for superimposed lesions in this region is limited without intravenous contrast material. There are patchy foci of round glass attenuation throughout the upper lobes. A few these regions are somewhat rounded with internal near solid components. Mild interlobular septal thickening is present at the component at the right lung base posteriorly. Additional interlobular septal thickening is present at the lingula. No discrete pulmonary nodules are identified. Airways are clear. MEDIASTINUM: Heart is normal in size. No pericardial effusion. Calcific atherosclerosis is present in the thoracic aorta and coronary arteries. There is reflux of food material into the esophagus, almost reaching the cervical esophagus. No hilar or mediastinal adenopathy. PLEURA: Multiple calcified pleural plaques are present bilaterally. The partially calcified pleural plaque at the right costovertebral angle inferiorly measures up to 1 cm in thickness with peripheral calcifications. No effusion. AXILLA: No lymphadenopathy. UPPER ABDOMEN: Unremarkable. OSSEOUS STRUCTURES: Multilevel degenerative disc disease present in the thoracic spine. There is a chronic appearing superior endplate fracture at the T6 vertebral body with a superimposed Schmorl's node. No focal osseous lesions are identified. IMPRESSION: 1. Status post right upper lobectomy. Dense fibrosis and volume loss in the superior segments of the right lower and middle lobes near the apex of the right hemithorax, most consistent with changes of prior radiation therapy. No superimposed lesions are identified. 2. Patchy multifocal groundglass airspace opacities with small consolidative/solid components. This may be due to multifocal pneumonia, though correlation with type of the patient's cancer is advised as multifocal adenocarcinoma in situ of the lung can have a similar appearance, particularly given the context of underlying asbestos exposure. 3. Areas of subtle interlobular septal thickening suggesting early fibrotic change, also likely related to prior asbestos exposure. 4. Reflux of food material into the upper esophagus, presenting a risk for aspiration. DICTATED BY: Jovon Beltre MD Head ct nil acute IMPRESSION 72-year-old male past medical history of COPD not on home oxygen, Locally advanced lung cancer status post right upper lobectomy xrt and chemo and treatment 7 years ago, AAA repair in the past and atrial fibrillation with a loop recorder. He is here from [place] visiting his daughter and for the past week has been having increasing shortness of breath. The family also feels he's been confused and mixing up his medications and generally feeling weak. They brought him in today because he fell out of bed and was having visible difficulty breathing. 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 as he is on high dose amiodarone * History of locally advanced Isacc ca 6 yrs ago with rt upperlobectomy followed by xrt and chemo now with evidence of dense fibrosis in the rt middle lobe and volume loss * COPD with mild wheezing with mild copd exacerbation, with ongoing smoking * Hypoxic resp failure now improving * Pleural thickening and evidence of pulm fibrosis needs longitudinal follow up * Esophageal thickening with reflux with dysphagia - rule out stricture (pt has had xrt) * Pafib with supratherapeutic inr now with hemoptysis (prob related to pulm infiltrate), now with sinus rhythm prob * Elevated BNP high risk for chf * Gait imbalance and recent memory loss - needs eval * CKD with prob mónica mild * Near syncope and a fall REC Cont abx Reduce amiodarone to 200 (call his out pt cardio and ask if amio can be held temporarily) IV steroids SPutum culture Barium esophagogram Cardio eval sugg May benefit from TELE monitoring Hold warfarin Watch for further hemoptysis One litre of ivf Check b12, folate, rpr etc for gait imbalance Will follow Consult Acknowledgment - Thank you for your consult request.
[2018-06-11 20:51] VITALS: BP 100/64
[2018-06-12 06:22] VITALS: BP 106/60
--- NOTE | 2018-06-12 07:58 | PN- Housestaff ---
Buzz FRANKLIN,Rubina 06/12/18 0757: Subjective Follow-up For: Acute hypoxic respiratory failure secondary to pneumonia/lung cancer recurrence/ COPD Supratherapeutic INR Swallowing difficulties Hemoptysis Subjective: Patient seen and examined. He notes that he still feels congested. He continues to have a cough with mild hemoptysis last time this morning. He states that he feels less wheezy. The patient is alert and oriented 2, not oriented to time. Other than that the patient has no complaints and he is sitting in bed comfortably. Review of Systems Constitutional: Reports: no symptoms. EENTM: Reports: no symptoms. Cardiovascular: Reports: no symptoms. Respiratory: Reports: cough, hemoptysis, short of breath, sputum production, wheezing. Gastrointestinal: Reports: no symptoms. Genitourinary: Reports: no symptoms. Musculoskeletal: Reports: no symptoms. Skin: Reports: no symptoms. Neurological/Psychological: Reports: no symptoms. Hematologic/Endocrine: Reports: no symptoms. Objective Last 24 Hrs of Vital Signs/I&O Vital Signs Date Time Temp Pulse Resp B/P B/P Pulse O2 O2 Flow FiO2 Mean Ox Delivery Rate 06/12 0850 84 112/66 06/12 0847 84 112/66 06/12 0752 93 Nasal 2.0L Cannula 06/12 0622 97.9 80 18 106/60 91 06/12 0000 95 Nasal 1.0L Cannula 06/11 2051 98.0 78 18 100/64 93 Nasal 1.0L Cannula 06/11 2012 100/60 06/11 1925 Nasal 2.0L Cannula 06/11 1831 72 110/62 06/11 1700 Nasal 1.0L Cannula 06/11 1649 98.1 72 18 110/62 94 Nasal 1.0L Cannula 06/11 1645 Nasal 1.0L Cannula 06/11 1538 98.3 78 19 114/57 94 Nasal Cannula 06/11 1342 98.5 78 20 107/61 96 Nasal 1.0L Cannula 06/11 1337 98.5 78 20 107/61 96 Nasal 1.0L Cannula 06/11 1247 94 Nasal 1.0L Cannula 06/11 1132 98.1 74 20 112/60 94 Nasal 1.0L Cannula Intake & Output 06/12 1600 06/12 0800 06/12 0000 Intake Total 0 240 Output Total Balance 0 240 Intake, Oral 0 240 Patient 220 lb Weight Weight Reported by Patient Measurement Method Physical Exam General Appearance: Alert, Oriented X3, Cooperative, No Acute Distress Skin: No Rashes, No Breakdown, No Significant Lesion Sepsis Skin Exam (color): Normal for Ethnicity HEENT: Atraumatic, PERRLA, EOMI, Mucous Membr. moist/pink Neck: Supple, No JVD Cardiovascular: Regular Rate, Normal S1, Normal S2, No Murmurs Lungs: LESS WHEEZING NOTED, LEFT RHONCHI ARE APPRECIATED. Abdomen: Normal Bowel Sounds, Soft, No Tenderness Neurological: Normal Speech Extremities: No Clubbing, No Cyanosis, No Edema Current Medications: Current Medications Sig/Mark Start time Last Medication Dose Route Stop Time Status Admin Albuterol Sulfate 3 ML EVERY 4 HRS/AWAKE .. 06/11 1934 AC 06/12 INH 0749 Albuterol Sulfate 3 ML Q4P PRN 06/11 1530 DC INH Albuterol Sulfate 2 PUF Q4-6 PRN PRN 06/11 1530 AC INH Amiodarone HCl 200 MG DAILY 06/12 09 AC 06/12 PO 0847 Amiodarone HCl 200 MG BID 06/11 2100 DC 06/11 PO 2012 Aspirin 81 MG DAILY 06/11 1524 DC PO Clonazepam 0.5 MG DAILY 06/11 1525 AC 06/12 PO 06/18 1524 0850 Gabapentin 600 MG BID 06/11 2100 AC 06/12 PO 0847 Methylprednisolone 40 MG Q8 06/11 1500 AC 06/12 IV 0709 Methylprednisolone 0 .STK-MED ONE 06/11 1426 DC .ROUTE Midodrine 5 MG BID 06/11 2100 AC 06/12 PO 0847 Mirtazapine 15 MG QPM 06/11 2100 AC 06/11 PO 2010 Moxifloxacin HCl 400 MG DAILY 06/12 0900 AC 06/12 PO 0853 Moxifloxacin HCl 400 MG ONCE 06/11 0000 DC N/A 1 UNIT IV 06/11 2359 Omeprazole 20 MG BID 06/11 2100 AC 06/12 PO 0850 Phytonadione 10 MG DAILY 06/11 1430 DC 06/11 PO 1452 Sodium Chloride 1,000 ML Q13H 06/11 1415 DC 06/11 IV 06/12 0314 1452 Tamsulosin HCl 0.4 MG DAILY 06/11 1527 AC 06/12 PO 0850 Tizanidine HCl 4 MG QPM PRN 06/11 1530 AC PO Last 24 Hrs of Lab/Franco Results Last 24 Hrs of Labs/Mics: Laboratory Tests 06/12/18 0720: Anion Gap 8, Estimated GFR > 60, BUN/Creatinine Ratio 22.0, Vitamin B12 250, 25- OH Vitamin D Total 11.3 L, Folate 7.0, PT 37.8 H, INR 3.43 H, CBC w Diff NO MAN DIFF REQ, RBC 3.70 L, MCV 89.6, MCH 29.6, MCHC 33.1, RDW 17.8 H, MPV 8.3, Gran % 91.0 H, Lymphocytes % 4.0 L, Monocytes % 4.9, Eosinophils % 0, Basophils % 0.1, Absolute Granulocytes 11.3 H, Absolute Lymphocytes 0.5 L, Absolute Monocytes 0.6, Absolute Eosinophils 0, Absolute Basophils 0, RPR Titer/ FTA NONREACTIVE 06/11/18 1427: CBC w Diff NO MAN DIFF REQ, RBC 3.82 L, MCV 89.2, MCH 29.7, MCHC 33.4, RDW 18.2 H, MPV 8.0, Gran % 94.8 H, Lymphocytes % 4.3 L, Monocytes % 0.8 L, Eosinophils % 0, Basophils % 0.1, Absolute Granulocytes 8.2 H, Absolute Lymphocytes 0.4 L, Absolute Monocytes 0.1, Absolute Eosinophils 0, Absolute Basophils 0 06/11/18 1236: PT 93.9 *H, INR 8.43 *H Microbiology 06/12 600 URINE ROUT: Legionella Antigen - COMP 06/12 600 URINE ROUT: Streptococcus pneumoniae Antigen (M - COMP 06/11 2020 LOWER RESP: Respiratory Culture - RES 06/11 2020 LOWER RESP: Gram Stain - RES Assessment/Plan Assessment: 72 year old male with a PMH significant for COPD, afib, lung cancer sp right upper lobectomy 7 years ago with one year of chemo and radiation, vascular disease sp AAA repair also 7 years ago, afib with implanted loop recorder on Coumadin, that is BIBA for complaints of dyspnea and altered mental status. The patient has been apparently deteriorating over the past couple months, with mild cough with brownish/reddish sputum, on and off dizziness and blurriness of the eyes, and more recently, confusion and unsteadiness on his feet. The patient has also recently had uncontrolled bleeding. He is on Coumadin 4 mg daily and as per his , his pills have been mixed up recently and he may have taken more than the doses been prescribed. The patient was found in the field to be hypoxic and was placed on supplemental oxygen. He was given Solu-Medrol as well as the field. The patient sees a PCP and asset protection officer in [place], phone numbers in the HPI. Of note, patient is severely allergic to penicillin, has anaphylactic reaction. Vitals in the urgency room were temperature 101.2 which decreased to 99, heart rate 102 which decreased to 90s, respiratory rate 24, blood pressure 125/56, 91% oxygen saturation on 4 L nasal cannula which was tapered down to 2 L, 94% oxygen saturation. Labs showed a WBC count of 9.4 with bandemia, hemoglobin 11.4, no old labs available, creatinine 1.4, BNP 2370, negative troponin, INR 8.09 with repeat INR of 8.43 Chest x-ray showed evidence of remote right upper lobectomy, upper half right hemithorax completely opacified which signifies plural effusion or fibrotic changes or tumor recurrence. Additionally seen was left lower lobe opacity. EKG showed a rate of 100 with a QTC of 470 and flipped P waves significant for ectopic atrial beats. In the ED, patient had blood cultures 2 taken and got 1 dose of moxifloxacin. Assessment -Acute hypoxic respiratory failure secondary to pneumonia/lung cancer recurrence /COPD: We started the patient on moxifloxacin as he has severe penicillin allergy. Chest x-ray shows evidence of pneumonia as well as potential recurrence of cancer/pleural effusionfibrotic changes. The patient is septic with an elevated heart rate and temperature up to 102 on admission with a suspected source of infection being the lung. -Hemoptysis: Patient had 1 episode of hemoptysis with about a teaspoon of blood produced. He recently had brownish reddish sputum for the past few weeks. -Supratherapeutic INR: Patient usually takes 4 mg of warfarin every day was found today to have INR over 8 -Altered mental status and falls: Patient recently had unsteadiness on his feet , confusion, poor memory, and a fall out of bed. -History of lung cancer: Right upper lobe lobectomy 7 years ago with chemotherapy and radiation for 1 year. The patient has not followed up with an oncologist for several years. -Dysphagia: Patient notices difficulty in swallowing pills, no issues with swallowing food or drink. -History of A. fib with implanted loop recorder: Patient sees a asset protection officer and EP down in [place], has an appointment with them in about one month. The patient is on warfarin for anticoagulation and amiodarone. He also has implantable loop recorder. Plan -Continue the patient on general medical floors for evaluation and treatment -Continue moxifloxacin 400 mg daily -Solu-Medrol 40 mg every 8 with continued reassessment of pulmonary status and tapering as possible -For the patient's acute kidney injury we gave 1 bag of normal saline to good effect. -Patient has no signs of CHF on exam, no edema, no lung crackles, we will defer echocardiogram unless it becomes clinically evident that he is in fluid overload or further deteriorating on current treatment plan -We ordered CT head without contrast as patient has supratherapeutic INR and did fall earlier prior to admission. It showed no acute intracranial abnormality. -We ordered CT of the chest without contrast as patient has a history of lung cancer, recurrent hemoptysis, and question of recurrence of mass on his chest x- ray. CT chest showed dense fibrosis and volume loss in the superior segments of the right lower and middle lobes near the apex of the right hemithorax consistent with prior radiation. No superimposed lesions were found. Also found was patchy multifocal groundglass airspace opacities with small consolidative/solid components possibly due to multifocal pneumonia or multifocal adenocarcinoma in situ. There are finally areas of subtle interlobular septal thickening suggesting early fibrotic change also likely related to prior asbestos exposure. We will treat patient for the pneumonia and she will likely require a repeat CT scan after 4-6 weeks to evaluate for any cancer recurrence. -There is a potential that patient is having lung damage secondary to amiodarone so we will decrease the dosage from 200 twice daily to [address] Ann, bookkeeper. We will call his outpatient asset protection officer for more information and to check if this medication can be potentially held or switched to a different medication. We have placed a cardiology consult for help with this. -Follow up blood cultures and lower respiratory cultures, urine Legionella and strep negative -Repeat CBC was stable despite patient's hemoptysis. -We gave vitamin K by mouth 10 mg for INR reversal with repeat INR at 3.43. We will hold the patient's Coumadin for today and repeat INR tomorrow. -Patient was cleared with swallow evaluation but CT scan showed reflux of food into the upper esophagus. We will follow with barium swallow today. We will restart the patient's diet once he comes back. -Physical therapy consult as patient has had recent unsteadiness on his feet. -Follow-up RPR, B12, folate, vitamin D, TSHr Full Code Heart healthy diet DVT prophylaxis with Alps only Problem List: 1. Pneumonia 2. History of lung cancer 3. History of lobectomy of lung 4. Hemoptysis 5. Supratherapeutic INR 6. Swallowing difficulty Pain Ratin Pain Location: na Pain Goal: Remain pain free Pain Plan: na Tomorrow's Labs & Rationales: inr bep Letitia Lacy MD 06/12/18 1122: Attending MD Review Statement Attending Statement Attending MD Statement: examined this patient, discuss w/resident/PA/SKIN LAP BONDER, agreed w/resident/PA/SKIN LAP BONDER, discussed with family, reviewed EMR data (avail), discussed with nursing, discussed with case mgmt, reviewed images Attending Assessment/Plan: Overall patient says he's feeling better today although he still coughing and is congested. We spoke to the patient's and daughter at bedside. Appreciate pulmonary evaluation in the CT chest showed likely multifocal pneumonia and less likely recurrence of malignancy. We'll continue the moxifloxacin given the pen allergy for multifocal pneumonia in patient with previous history of lung CA and underlying COPD. He got 1 dose of oral vitamin K yesterday for the elevated INR in association with hemoptysis and his INR is down to 3.4 today. Will closely trend it. We called a formal cardio consult with Dr. Gamble and the questions are 1) can we cut the dose of amiodarone in half as recommended by pulmonary which we have already done, 2) does he need to be on telemetry to evaluate for recurrent A. fib and 3) if he continues to remain in sinus can we stop the anticoagulation given the risks of bleeding may outweigh the benefits. Patient was seen by PT and cleared for home and we'll closely follow-up the above.
[2018-06-12 08:12] LABS: PT 37.8 SEC (9.4-12.5)
[2018-06-12 08:15] LABS: ABSOLUTE BASOPHIL COUNT 0 /CUMM (0.0-0.2); ABSOLUTE EOSINOPHIL COUNT 0 /CUMM (0.0-0.7); ABSOLUTE GRANULOCYTE CT 11.3 /CUMM (1.4-6.5); ABSOLUTE LYMPH COUNT 0.5 /CUMM (1.2-3.4); ABSOLUTE MONOCYTE COUNT 0.6 /CUMM (0.10-0.60); BASOPHIL % 0.1 % (0.0-2.0); EOSINOPHIL % 0 % (0-5); HEMATOCRIT 33.1 % (42-52); MEAN CORPUSCULAR HGB 29.6 PG (27.0-31.0); MEAN CORPUSCULAR HGB CONC 33.1 G/DL (33.0-37.0); MEAN CORPUSCULAR VOLUME 89.6 FL (80.0-94.0); MEAN PLATELET VOLUME 8.3 FL (7.4-10.4); PLATELET COUNT 239 /CUMM (130-400); RBC DISTRIBUTION WIDTH 17.8 % (11.5-14.5); WHITE BLOOD CELL COUNT 12.4 /CUMM (4.8-10.8)
--- NOTE | 2018-06-12 11:16 | RADIOLOGY REPORT ---
EXAMINATION: Esophagram INDICATION: Dysphagia COMPARISON: Chest CT 06/11/2018 TECHNIQUE: Under fluoroscopy, barium contrast agent was administered orally and its transit though the esophagus was observed. Examination is significantly limited as the patient was only able to take small boluses. Additionally, the patient was unable to lie prone. Total fluoroscopy time: 1.5 minutes Number of images saved to PACS: 6 images: FINDINGS: The esophagus is normal in course and caliber. No gross stricture visualized. There is severe dysmotility with disorganized contractions and delayed contrast bolus throughout the entire course of the esophagus. The contrast refluxes back up to the level of the upper neck, however, visualization in this region is limited secondary to the patient's chin which she could not move. Contrast flows easily through the gastroesophageal junction, into the stomach and into loops of small bowel. IMPRESSION: Extremely limited esophagram as the patient was only able to take small boluses and could not lie prone. Additionally, the patient's chin obscured visualization of the upper esophagus. Overall there is severe dysmotility and reflux present up to the level of the upper neck. No gross stricture is identified. These findings place the patient at risk for aspiration. This patient may benefit from a modified barium swallow with speech pathology.
--- NOTE | 2018-06-12 11:16 | Patient Discharge Instructions ---
Discharge Instructions General Discharge Information You were seen/treated for: pneumonia and COPD blood in sputum high INR Special Instructions: -Follow up with multi media specialist in one week -Follow up with PCP in one week -Please follow up with Dr. Ann, pulmonoloist -FOLLOW UP CT SCAN CHEST in 4-6 WEEKS to check for lung pathology after resolution of pneumonia. -FOLLOW UP with weigher and mixer in [place] once pneumonia has resolved for esophageal motility issues. For now please take all medications with pureed food such as apple sauce. -Please follow up with PCP regarding thyroid levels, low TSH AND TOTAL T3/T4. This may be secondary to amiodarone. Follow up thyroid function tests and liver function tests every 3-6 months if restarted on amiodarone. Need reeevaluation by placement director regarding replacement therapy for amiodarone. 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 -There is a risk of musculoskeletal issues on the combination of prednisone + levaquin. You have been tolerating them in the hospital well but if you have any out of the ordinary muscular pain outpatient please discontinue levaquin and call your PCP or go to the nearest ER. Diet Continue normal diet: Yes Recommended Diet: Heart Healthy Additional DIET Information: PLEASE TAKE ALL MEDICATIONS WITH APPLE SAUCE Activity Full Activity/No Limits: Yes ( TOLERATED) Acute Coronary Syndrome Inclusion Criteria At DC or during hospital stay patient has or had the following: ACS DIAGNOSIS No Discharge Core Measures Meds if any: Prescribed or Continued at Discharge Meds if any: NOT Prescribed or Continued at Discharge Congestive Heart Failure Inclusion Criteria At DC or during hospital stay patient has or had the following: CHF DIAGNOSIS No Discharge Core Measures Meds if any: Prescribed or Continued at Discharge Meds if any: NOT Prescribed or Continued at Discharge Cerebrovascular accident Inclusion Criteria At DC or during hospital stay patient has or had the following: CVA/TIA Diagnosis No Discharge Core Measures Meds if any: Prescribed or Continued at Discharge Meds if any: NOT Prescribed or Continued at Discharge Venous thromboembolism Inclusion Criteria VTE Diagnosis No VTE Type NONE VTE Confirmed by (Test) NONE Discharge Core Measures - Per Current guidelines, there needs to be overlap - treatment for the first 5 days of Warfarin therapy. - If discharged on Warfarin prior to 5 days of - overlap therapy, the patient will need to be - assessed for post discharge needs including - *Post discharge parental anticoagulation - *Warfarin and/or parental anticoagulation education - *Follow up date to check INR post discharge At least 5 days overlap therapy as Inpatient No Meds if any: Prescribed or Continued at Discharge Note: Overlap Therapy is Warfarin and Anticoagulant Meds if any: NOT Prescribed or Continued at Discharge Note: Overlap Therapy is Warfarin and Anticoagulant Meds if any: NOT Prescribed or Continued at Discharge
--- NOTE | 2018-06-12 13:55 | PN- Pulmonary ---
Subjective HPI/Critical Care Issues: Patient seen and examined. He notes that he still feels congested. He continues to have a cough with mild hemoptysis last time this morning. He states that he feels less wheezy. Review of Systems Constitutional: Reports: no symptoms. EENTM: Reports: no symptoms. Cardiovascular: Reports: no symptoms. Respiratory: Reports: cough, hemoptysis, short of breath, sputum production, wheezing. Gastrointestinal: Reports: no symptoms. Genitourinary: Reports: no symptoms. Musculoskeletal: Reports: no symptoms. Skin: Reports: no symptoms. Neurological/Psychological: Reports: no symptoms. Hematologic/Endocrine: Reports: no symptoms. Objective Current Medications: Current Medications Sig/Mark Start time Last Medication Dose Route Stop Time Status Admin Albuterol Sulfate 3 ML EVERY 4 HRS/AWAKE .. 06/11 1934 AC 06/12 INH 1121 Albuterol Sulfate 3 ML Q4P PRN 06/11 1530 DC INH Albuterol Sulfate 2 PUF Q4-6 PRN PRN 06/11 1530 AC INH Amiodarone HCl 200 MG DAILY 06/12 0900 AC 06/12 PO 0847 Amiodarone HCl 200 MG BID 06/11 2100 DC 06/11 PO 2011 Aspirin 81 MG DAILY 06/11 1524 DC PO Cholecalciferol 1,000 IU DAILY 06/12 1123 AC 06/12 PO 1337 Clonazepam 0.5 MG DAILY 06/11 1525 AC 06/12 PO 06/18 1524 0850 Gabapentin 600 MG BID 06/11 2100 AC 06/12 PO 0847 Methylprednisolone 40 MG Q8 06/11 1500 AC 06/12 IV 1337 Methylprednisolone 0 .STK-MED ONE 06/11 1426 DC .ROUTE Midodrine 5 MG BID 06/11 2100 AC 06/12 PO 0847 Mirtazapine 15 MG QPM 06/11 2100 AC 06/11 PO 2010 Moxifloxacin HCl 400 MG DAILY 06/12 0900 AC 06/12 PO 0853 Moxifloxacin HCl 400 MG ONCE 06/11 0000 DC N/A 1 UNIT IV 06/11 2359 Omeprazole 20 MG BID 06/11 2100 AC 06/12 PO 0850 Phytonadione 10 MG DAILY 06/11 1430 DC 06/11 PO 1452 Sodium Chloride 1,000 ML Q13H 06/11 1415 DC 06/11 IV 06/12 0314 1452 Tamsulosin HCl 0.4 MG DAILY 06/11 1527 AC 06/12 PO 0850 Tizanidine HCl 4 MG QPM PRN 06/11 1530 AC PO Vital Signs & I&O Last 24 Hrs of Vitals and I&O: Vital Signs Date Time Temp Pulse Resp B/P B/P Pulse O2 O2 Flow FiO2 Mean Ox Delivery Rate 06/12 0850 84 112/66 06/12 0847 84 112/66 06/12 0800 Room Air 1.0L 06/12 0752 93 Nasal 2.0L Cannula 06/12 0622 97.9 80 18 106/60 91 06/12 0000 95 Nasal 1.0L Cannula 06/11 2051 98.0 78 18 100/64 93 Nasal 1.0L Cannula 06/11 2012 100/60 06/11 1925 Nasal 2.0L Cannula 06/11 1831 72 110/62 06/11 1700 Nasal 1.0L Cannula 06/11 1649 98.1 72 18 110/62 94 Nasal 1.0L Cannula 06/11 1645 Nasal 1.0L Cannula 06/11 1538 98.3 78 19 114/57 94 Nasal Cannula Intake & Output 06/12 1600 06/12 0800 06/12 0000 Intake Total 0 240 Output Total Balance 0 240 Intake, Oral 0 240 Patient 220 lb Weight Weight Reported by Patient Measurement Method Impression/Plan Impression/Plan Impression/Plan: barium esophagogram IMPRESSION: Extremely limited esophagram as the patient was only able to take small boluses and could not lie prone. Additionally, the patient's chin obscured visualization of the upper esophagus. Overall there is severe dysmotility and reflux present up to the level of the upper neck. No gross stricture is identified. These findings place the patient at risk for aspiration. This patient may benefit from a modified barium swallow with speech pathology. DICTATED BY: Jayson Schuster MD DATE/TIME DICTATED:06/12/181038 CT chest LUNGS: Chain josue are present in the right suprahilar region, consistent with prior right upper lobectomy. The superior portions of the right upper and right lower lobes are densely opacified with volume loss and surrounding architectural distortion, most compatible with chronic fibrotic changes from prior radiation. Sensitivity for superimposed lesions in this region is limited without intravenous contrast material. There are patchy foci of round glass attenuation throughout the upper lobes. A few these regions are somewhat rounded with internal near solid components. Mild interlobular septal thickening is present at the component at the right lung base posteriorly. Additional interlobular septal thickening is present at the lingula. No discrete pulmonary nodules are identified. Airways are clear. MEDIASTINUM: Heart is normal in size. No pericardial effusion. Calcific atherosclerosis is present in the thoracic aorta and coronary arteries. There is reflux of food material into the esophagus, almost reaching the cervical esophagus. No hilar or mediastinal adenopathy. PLEURA: Multiple calcified pleural plaques are present bilaterally. The partially calcified pleural plaque at the right costovertebral angle inferiorly measures up to 1 cm in thickness with peripheral calcifications. No effusion. AXILLA: No lymphadenopathy. UPPER ABDOMEN: Unremarkable. OSSEOUS STRUCTURES: Multilevel degenerative disc disease present in the thoracic spine. There is a chronic appearing superior endplate fracture at the T6 vertebral body with a superimposed Schmorl's node. No focal osseous lesions are identified. IMPRESSION: 1. Status post right upper lobectomy. Dense fibrosis and volume loss in the superior segments of the right lower and middle lobes near the apex of the right hemithorax, most consistent with changes of prior radiation therapy. No superimposed lesions are identified. 2. Patchy multifocal groundglass airspace opacities with small consolidative/solid components. This may be due to multifocal pneumonia, though correlation with type of the patient's cancer is advised as multifocal adenocarcinoma in situ of the lung can have a similar appearance, particularly given the context of underlying asbestos exposure. 3. Areas of subtle interlobular septal thickening suggesting early fibrotic change, also likely related to prior asbestos exposure. 4. Reflux of food material into the upper esophagus, presenting a risk for aspiration. DICTATED BY: Jovon Beltre MD Head ct nil acute IMPRESSION 72-year-old male past medical history of COPD not on home oxygen, Locally advanced lung cancer status post right upper lobectomy xrt and chemo and treatment 7 years ago, AAA repair in the past and atrial fibrillation with a loop recorder. He is here from [place] visiting his daughter and for the past week has been having increasing shortness of breath. The family also feels he's been confused and mixing up his medications and generally feeling weak. They brought him in today because he fell out of bed and was having visible difficulty breathing. 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 as well as he is on high dose amiodarone * History of locally advanced Lung ca 6 yrs ago with rt upperlobectomy followed by xrt and chemo now with evidence of dense fibrosis in the rt middle lobe and volume loss * COPD with mild wheezing with mild copd exacerbation, with ongoing smoking * Hypoxic resp failure now improving * Pleural thickening and evidence of pulm fibrosis needs longitudinal follow up * Esophageal thickening with reflux with dysphagia -barium swallow reviewed high risk for aspiration - needs follow up eval * Pafib with supratherapeutic inr now with hemoptysis (prob related to pulm infiltrate), now with sinus rhythm prob - Inr trending down * Elevated BNP high risk for chf * Gait imbalance and recent memory loss - needs eval- * Sig B12 def noted by blood work needs b12 injections followed by high dose po/ vit d def noted * GEO resolved * Near syncope and a fall REC Cont abx for 5-7 days Touch base with his [place] [facility] and discuss issues as noted by my note yesterday Amiodarone _ lower dose Po steroids Prednisone 50 and taper over 8 days MBS and speech eval B12 injection and po replacement 2000 mcg Watch for further hemoptysis / watch INR Will follow
[2018-06-12 13:56] VITALS: BP 91/61
[2018-06-12 14:43] VITALS: BP 112/64
--- NOTE | 2018-06-12 16:07 | Cons- Cardiology ---
General Information and HPI Consulting Request Date of Consult: 06/12/18 Requested By: Letitia Lacy MD Reason for Consult: Paroxysmal atrial fibrillation on warfarin anticoagulation and amiodarone. Source of Information: patient, family Exam Limitations: poor historian History of Present Illness: Mr. Nayan Schumacher is a 72-year-old male [facility] with a history of very heavy tobacco use (3 ppd x 50+ yrs), COPD with previous exacerbation requiring hospitalization, lung carcinoma s/p RUL lobectomy ~2012, chemotherapy and radiation therapy, vascular disease s/p open AAA repair ~2010, previously treated dyslipidemia, coronary artery disease s/p PCI/stenting, and paroxysmal atrial fibrillation for which he is on antiarrhythmic therapy with amiodarone and anticoagulation with warfarin s/p LINQ recorder who presented to the ED on 06/11/2018 from his daughter's home where he was visiting with his since 06/02/2018 with altered mental status, shortness of breath, cough productive of brown sputum, following a witnessed fall from bed from which he could not get up and who was found to be hypoxemic and febrile with a left shift on his WBC count , acute kidney injury, supratherapeutic INR, abnormal CXR/chest CT etc. Allergies/Medications Allergies: Coded Allergies: Penicillins (Severe, SWELLING THROAT 06/11/18) Home Med List: Albuterol Sulfate (Ventolin Hfa) 90 MCG HFA.AER.AD 2 PUF INH Q4-6 PRN PRN SHORTNESS OF BREATH (Reported) Albuterol Sulfate 2.5 MG/3 ML (0.083 %) VIAL.NEB 1 Vial INH/TIMOTHY Q4P PRN SHORTNESS OF BREATH (Reported) Amiodarone HCl 200 MG TABLET 1 TAB PO BID HEART (Reported) Aspirin (Aspirin*) 81 MG TAB.CHEW 1 TAB PO DAILY HEART HEALTH (Reported) Clonazepam 0.5 MG TABLET 1 TAB PO DAILY ANXIETY (Reported) Fluticasone/Salmeterol (Advair 250-50 Diskus) 250 MCG-50 MCG/DOSE BLST.W.DEV 1 PUF INH BID BREATHING PROBLEMS (Reported) Gabapentin 600 MG TABLET 1 TAB PO TID UNKNOWN (Reported) Meloxicam 15 MG TABLET 1 TAB PO DAILY PRN PAIN (Reported) Midodrine HCl 5 MG TABLET 1 TAB PO BID BP (Reported) Mirtazapine 15 MG TABLET 1 TAB PO QPM SLEEP (Reported) Omeprazole 20 MG CAPSULE.DR 1 CAP PO BID GI (Reported) Oxycodone HCl/Acetaminophen (Oxycodone-Acetaminophen 10-325) 10 MG-325 MG TABLET 1 TAB PO BIDP PRN PAIN (Reported) Tamsulosin HCl 0.4 MG CAP.ER.24H 1 CAP PO DAILY BPH (Reported) Tizanidine HCl 4 MG TABLET 1 TAB PO QPM PRN SPASMS (Reported) Warfarin Sodium (Coumadin) 4 MG TABLET 1 TAB PO 1700 BLOOD THINNER (Reported) Review of Systems Review of Systems: A 14 point system review was obtained was noncontributory, other than as above, except for the fact the patient has intermittent blurry vision, dizziness, tremors, and leg weakness for the past several months. 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 Home Services at Home: None Smoking Status: Current Some Day Smoker ETOH Use: denies use Illicit Drug Use: denies illicit drug use Functional Ability ADLs Independent: dressing, eating, toileting, bathing. Exam & Diagnostic Data Vital Signs and I&O Vital Signs Date Time Temp Pulse Resp B/P B/P Pulse O2 O2 Flow FiO2 Mean Ox Delivery Rate 06/12 1443 112/64 06/12 1356 97.5 87 18 91/61 94 Room Air 06/12 0850 84 112/66 06/12 0847 84 112/66 06/12 0800 Room Air 1.0L 06/12 0752 93 Nasal 2.0L Cannula 06/12 0622 97.9 80 18 106/60 91 06/12 0000 95 Nasal 1.0L Cannula 06/11 2051 98.0 78 18 100/64 93 Nasal 1.0L Cannula 06/11 2012 100/60 06/11 1925 Nasal 2.0L Cannula 06/11 1831 72 110/62 07/11 1700 Nasal 1.0L Cannula 06/11 1649 98.1 72 18 110/62 94 Nasal 1.0L Cannula 06/11 1645 Nasal 1.0L Cannula 06/11 1538 98.3 78 19 114/57 94 Nasal Cannula Intake & Output 06/12 1600 06/12 0800 06/12 0000 06/11 1600 06/11 0800 06/11 0000 Intake Total 0 0 240 Output Total 300 100 Balance 0 0 240 -300 -100 Intake, IV 0 Intake, Oral 0 0 240 Number 0 Bowel Movements Output, Urine 300 100 Patient 220 lb 225 lb 225 lb Weight Weight Reported by Patient Measurement Method Physical Exam: Well-developed, overweight elderly male in no acute distress with nasal oxygen in place. Vital signs: See above. HEENT: Normocephalic, atraumatic, EOMI, slightly dry mucous membranes. Neck: No JVD, bilateral carotid bruits versus transmitted systolic murmur right greater than left. Lungs: Decreased breath sounds bilaterally. Heart: S1, S2 with grade 1-2/6 systolic murmur. No gallop or rub. PMI not well felt. Abdomen: Soft, nontender, positive bowel sounds. Extremities: No edema. Labs/Franco Results: Laboratory Tests 06/12 0720 Chemistry Sodium (137 - 145 mmol/L) 141 Potassium (3.5 - 5.1 mmol/L) 4.4 Chloride (98 - 107 mmol/L) 105 Carbon Dioxide (22 - 30 mmol/L) 28 Anion Gap (5 - 16) 8 BUN (9 - 20 mg/dL) 22 H Creatinine (0.7 - 1.2 mg/dL) 1.0 Estimated GFR (>60 ml/min) > 60 BUN/Creatinine Ratio (7 - 25 %) 22.0 Vitamin B12 (239 - 931 pg/mL) 250 25-OH Vitamin D Total (30 - 100 ng/ml) 11.3 L Folate (2.76 - 20.0 ng/mL) 7.0 Free T4 (0.78 - 2.44 ng/dL) 1.79 Total T3 (0.97 - 1.69 ng/mL) 0.76 L TSH &T3 &Free T4 Intrp (0.27 - 4.20 uIU/mL) 0.136 L Coagulation PT (9.4 - 12.5 SEC) 37.8 H INR (0.90 - 1.17) 3.43 H Hematology CBC w Diff NO MAN DIFF REQ WBC (4.8 - 10.8 /CUMM) 12.4 H RBC (4.70 - 6.10 /CUMM) 3.70 L Hgb (14.0 - 18.0 G/DL) 11.0 L Hct (42 - 52 %) 33.1 L MCV (80.0 - 94.0 FL) 89.6 MCH (27.0 - 31.0 PG) 29.6 MCHC (33.0 - 37.0 G/DL) 33.1 RDW (11.5 - 14.5 %) 17.8 H Plt Count (130 - 400 /CUMM) 239 MPV (7.4 - 10.4 FL) 8.3 Gran % (42.2 - 75.2 %) 91.0 H Lymphocytes % (20.5 - 51.1 %) 4.0 L Monocytes % (1.7 - 9.3 %) 4.9 Eosinophils % (0 - 5 %) 0 Basophils % (0.0 - 2.0 %) 0.1 Absolute Granulocytes (1.4 - 6.5 /CUMM) 11.3 H Absolute Lymphocytes (1.2 - 3.4 /CUMM) 0.5 L Absolute Monocytes (0.10 - 0.60 /CUMM) 0.6 Absolute Eosinophils (0.0 - 0.7 /CUMM) 0 Absolute Basophils (0.0 - 0.2 /CUMM) 0 Serology RPR Titer/FTA (NONREACTIVE) NONREACTIVE 06/11 06/11 1427 1236 Coagulation PT (9.4 - 12.5 SEC) 93.9 *H INR (0.90 - 1.17) 8.43 *H Hematology CBC w Diff NO MAN DIFF REQ WBC (4.8 - 10.8 /CUMM) 8.7 RBC (4.70 - 6.10 /CUMM) 3.82 L Hgb (14.0 - 18.0 G/DL) 11.4 L Hct (42 - 52 %) 34.1 L MCV (80.0 - 94.0 FL) 89.2 MCH (27.0 - 31.0 PG) 29.7 MCHC (33.0 - 37.0 G/DL) 33.4 RDW (11.5 - 14.5 %) 18.2 H Plt Count (130 - 400 /CUMM) 204 MPV (7.4 - 10.4 FL) 8.0 Gran % (42.2 - 75.2 %) 94.8 H Lymphocytes % (20.5 - 51.1 %) 4.3 L Monocytes % (1.7 - 9.3 %) 0.8 L Eosinophils % (0 - 5 %) 0 Basophils % (0.0 - 2.0 %) 0.1 Absolute Granulocytes (1.4 - 6.5 /CUMM) 8.2 H Absolute Lymphocytes (1.2 - 3.4 /CUMM) 0.4 L Absolute Monocytes (0.10 - 0.60 /CUMM) 0.1 Absolute Eosinophils (0.0 - 0.7 /CUMM) 0 Absolute Basophils (0.0 - 0.2 /CUMM) 0 06/11 06/11 0925 0840 Chemistry Sodium (137 - 145 mmol/L) 140 Potassium (3.5 - 5.1 mmol/L) 4.6 Chloride (98 - 107 mmol/L) 104 Carbon Dioxide (22 - 30 mmol/L) 26 Anion Gap (5 - 16) 10 BUN (9 - 20 mg/dL) 24 H Creatinine (0.7 - 1.2 mg/dL) 1.4 H Estimated GFR (>60 ml/min) 50 L BUN/Creatinine Ratio (7 - 25 %) 17.1 Glucose (65 - 99 mg/dL) 116 H Lactic Acid (0.7 - 2.1 mmol/L) 0.8 Calcium (8.4 - 10.2 mg/dL) 8.4 Magnesium (1.6 - 2.3 mg/dL) 2.3 Troponin I (<0.11 ng/ml) 0.02 Ibn-N-[id number] Pept (<125 pg/mL) 2370 H Coagulation PT (9.4 - 12.5 SEC) 89.7 *H INR (0.90 - 1.17) 8.06 *H D-Dimer High Sensitivty (0 - 243 ng/ml) 221 Hematology CBC w Diff MAN DIFF ORDERED WBC (4.8 - 10.8 /CUMM) 9.4 RBC (4.70 - 6.10 /CUMM) 3.74 L Hgb (14.0 - 18.0 G/DL) 11.1 L Hct (42 - 52 %) 33.3 L MCV (80.0 - 94.0 FL) 89.0 MCH (27.0 - 31.0 PG) 29.6 MCHC (33.0 - 37.0 G/DL) 33.3 RDW (11.5 - 14.5 %) 17.9 H Plt Count (130 - 400 /CUMM) 211 MPV (7.4 - 10.4 FL) 8.3 Gran % (42.2 - 75.2 %) 86.7 H Lymphocytes % (20.5 - 51.1 %) 6.3 L Monocytes % (1.7 - 9.3 %) 6.3 Eosinophils % (0 - 5 %) 0.6 Basophils % (0.0 - 2.0 %) 0.1 Absolute Granulocytes (1.4 - 6.5 /CUMM) 8.2 H Segmented Neutrophils (42.2 - 75.2 %) 79 H Band Neutrophils (0.0 - 5.0 %) 6 H Absolute Lymphocytes (1.2 - 3.4 /CUMM) 0.6 L Lymphocytes (20.5 - 51.1 %) 10 L Monocytes (1.7 - 9.3 %) 5 Absolute Monocytes (0.10 - 0.60 /CUMM) 0.6 Absolute Eosinophils (0.0 - 0.7 /CUMM) 0.1 Absolute Basophils (0.0 - 0.2 /CUMM) 0 Platelet Estimate (ADEQUATE) ADEQUATE Hypochromic-Microcytic 2+ Anisocytosis 1+ Urines Urine Color (YEL,AMB,STR) MARIAELENA Urine Clarity (CLEAR) CLEAR Urine pH (5.0 - 8.0) 6.0 Ur Specific [place] (1.001 - 1.035) >= 1.030 Urine Protein (NEG,<30 MG/DL) 30 H Urine Ketones (NEG) NEG Urine Nitrite (NEG) NEG Urine Bilirubin (NEG) NEG Urine Urobilinogen (0.1 - 1.0 EU/dl) 0.2 Ur Leukocyte Esterase (NEG) NEG Ur Microscopic SEDIMENT EXAMINED Urine RBC (0 - 5 /HPF) 3-5 Urine WBC (0 - 2 /HPF) 1-3 H Ur Epithelial Cells (NONE,FEW) FEW Urine Bacteria (NEG/NONE) FEW H Hyaline Casts (0/LPF) 1-3 H Urine Hemoglobin (NEG) SMALL H Urine Glucose (N MG/DL) NEG Diagnostic Data EKG Results 06/11/2018: Low atrial tachycardia, RSR prime conduction pattern lead V1, and otherwise unremarkable. No previous tracing available for comparison. CXR Results 06/11/2018: 1. Volume loss of the right hemithorax from remote right upper lobectomy. The upper half of the right hemithorax is completely opacified, possibly representing chronically loculated pleural effusion and fibrotic changes, although it is not possible to exclude any underlying tumor in the upper chest. There are no comparison exams. 2. Patchy, hazy opacity in the left lower lung could represent pneumonia, if in the right clinical context. 3. Cardiomegaly. Other Results Barium swallow/esophagram 06/12/2018: 1. Extremely limited esophagram as the patient was only able to take small boluses and could not lie prone. Additionally, the patient's chin obscured visualization of the upper esophagus. 2. Overall there is severe dysmotility and reflux present up to the level of the upper neck. No gross stricture is identified. 3. These findings place the patient at risk for aspiration. This patient may benefit from a modified barium swallow with speech pathology. Chest CT 06/11/2018: 1. Status post right upper lobectomy. Dense fibrosis and volume loss in the superior segments of the right lower and middle lobes near the apex of the right hemithorax, most consistent with changes of prior radiation therapy. No superimposed lesions are identified. 2. Patchy multifocal groundglass airspace opacities with small consolidative/ solid components. This may be due to multifocal pneumonia, though correlation with type of the patient's cancer is advised as multifocal adenocarcinoma in situ of the lung can have a similar appearance, particularly given the context of underlying asbestos exposure. 3. Areas of subtle interlobular septal thickening suggesting early fibrotic change, also likely related to prior asbestos exposure. 4. Reflux of food material into the upper esophagus, presenting a risk for aspiration. Head CT 06/11/2018: 1. No acute intracranial abnormality. 2. Mild diffuse brain parenchymal volume loss. Assessment/Plan Assessment/Plan [id number] w/ hx of very heavy tob use (3 ppd x 50+ yrs), COPD, lung ca s/p RUL lobectomy ~2012, chemo & radiation Rx, vascular disease s/p open AAA repair ~ 2010, previously treated dyslipidemia, CAD s/p PCI/stenting, & PAF on amiodarone /warfarin s/p LINQ recorder who presented to the ED on 06/11/2018 w/ AMS, SOB , cough productive of brown sputum, following a witnessed fall from bed from which he could not get up and who was found to be hypoxemic and febrile w/ a left shift on his WBC count, GEO, supratherapeutic INR, abnormal CXR/chest CT etc. There is concern from a pulmonary standpoint that the patient may have some toxicity from the amiodarone and the dosage has been decreased from 400 mg daily to the usual maintenance dosage of 200 mg daily. Interrogating the patient's LINQ recorder will give us insight into whether or not he has continued to have paroxysms of atrial fibrillation which could impact management i.e. if he has been maintaining sinus rhythm he may not need to be maintained on warfarin anticoagulation indefinitely which would be beneficial given his supratherapeutic INR, fall risk, etc. Alternatively, if he is having paroxysms of atrial fibrillation he may not need to be maintained on the amiodarone, which would be of potential benefit from a pulmonary standpoint. The interrogation will also serve a similar purpose to telemetry, so did not think he needs to be on telemetry at this time. Recommendations: * Maintain on maintenance amiodarone dosage of 200 mg daily with follow-up of TFTs, LFTs every 3-6 months. Consider endocrinology input regarding abnormal TFTs. * A call has been made to [employer] to interrogate the LINQ recorder to determine the need for continued anticoagulation and amiodarone therapy. * Echocardiogram to assess left ventricular systolic/diastolic function, right ventricular function, atrial size, estimated PA systolic pressure, etc. * Consider carotid ultrasound to assess carotid bruits versus transmitted systolic murmur. * DVT prophylaxis. Further recommendations will follow, Thank you. Consult Acknowledgment - Thank you for your consult request.
--- NOTE | 2018-06-12 16:15 | RADIOLOGY REPORT ---
INDICATION: Severe dysmotility in the upper esophagus. EXAMINATION: Modified barium swallow. COMPARISON: Same day limited esophagram and chest CT 06/11/2018 FLUOROSCOPIC TIME: 2 minutes and 54 seconds NUMBER OF IMAGES: 14 TECHNIQUE: Real-time fluoroscopy was provided while the exam was recorded. The patient swallowed pureed foods, thick liquids, thin liquids, straight (nectar thick) liquids and solids labeled with barium. FINDINGS: Oral phase: Normal bolus formation without spillage is evident. There is normal triggering of the swallowing reflex. The soft palate elevates normally with normal oral transit of the bolus to the esophagus. Pharyngeal phase: Normal pharyngeal peristalsis was observed, with normal laryngeal elevation. No vallecular or piriform sinus retention is evident. Normal epiglottic tilt was observed, without evidence of penetration or aspiration with any consistency. No significant post swallow residual is evident. IMPRESSION: Normal modified barium swallow. Please see speech pathologist's recommendations for feeding guidelines.
[2018-06-12 21:02] VITALS: BP 100/60
--- NOTE | 2018-06-12 21:42 | ULTRASOUND REPORT ---
EXAMINATION: US DUPLEX CAROTID AND VERTEBRAL CLINICAL INFORMATION: Cardiac murmur. Tobacco use history. COMPARISON: None TECHNIQUE: Real-time ultrasound and Doppler techniques (integrating B-mode 2D vascular images, Doppler spectral analysis and color flow Doppler imaging) were utilized to interrogate the extracranial carotid and vertebral arteries bilaterally. The degree of stenosis determined by criteria similar to NASCET. FINDINGS: RIGHT VESSELS - There is antegrade flow within the carotid and vertebral arteries. There is intimal thickening of the wall the common carotid artery. The calcified, shadowing atherosclerotic plaque of the carotid bulb produces luminal stenosis. Doppler derived peak systolic velocity measurements (cm/sec) were as follows: Distal CCA: 103 ICA: 256 (with end diastolic of 32) ECA: 195 Vertebral: 24 ICA/CCA ratio is 2.48 LEFT VESSELS - There is antegrade flow within the carotid and vertebral arteries. There is intimal thickening of the wall the common carotid artery. Calcified and noncalcified plaque is seen along the wall of the carotid bulb/bifurcation. Doppler derived peak systolic velocity measurements (cm/sec) were as follows: Distal CCA: 156 ICA: 162 (with end diastolic of 29) ECA: 523 Vertebral: 68 ICA/CCA ratio is 1.04 IMPRESSION: Atherosclerotic disease of the carotid arteries. The abnormally elevated systolic velocities in the right ICA with ICA/CCA ratio of 2.48, are suggestive of a proximal ICA stenosis in the range of 50-69%. No hemodynamically significant stenosis of the left ICA. However, there is hemodynamically significant stenosis of the left ECA.
[2018-06-13 06:57] VITALS: BP 134/76
[2018-06-13 07:50] LABS: ABSOLUTE BASOPHIL COUNT 0 /CUMM (0.0-0.2); ABSOLUTE EOSINOPHIL COUNT 0 /CUMM (0.0-0.7); ABSOLUTE GRANULOCYTE CT 15.5 /CUMM (1.4-6.5); ABSOLUTE LYMPH COUNT 0.4 /CUMM (1.2-3.4); ABSOLUTE MONOCYTE COUNT 0.8 /CUMM (0.10-0.60); BASOPHIL % 0 % (0.0-2.0); EOSINOPHIL % 0 % (0-5); HEMATOCRIT 32.7 % (42-52); MEAN CORPUSCULAR HGB 29.6 PG (27.0-31.0); MEAN CORPUSCULAR HGB CONC 33.3 G/DL (33.0-37.0); MEAN PLATELET VOLUME 8.3 FL (7.4-10.4); PLATELET COUNT 267 /CUMM (130-400); RBC DISTRIBUTION WIDTH 18.5 % (11.5-14.5); RED BLOOD CELL CT 3.67 /CUMM (4.70-6.10); WHITE BLOOD CELL COUNT 16.7 /CUMM (4.8-10.8)
[2018-06-13 08:15] LABS: PT 19.7 SEC (9.4-12.5)
--- NOTE | 2018-06-13 08:38 | PN- Housestaff ---
Buzz FRANKLIN,Rubina 06/13/18 0837: Subjective Follow-up For: Acute hypoxic respiratory failure secondary to pneumonia/lung cancer recurrence/ COPD Supratherapeutic INR Swallowing difficulties Hemoptysis Subjective: Patient was seen and examined. He states that he was up all night coughing. He states that his Earnest of breath on exertion is actually worse. He complains of mild wheezing. His vitals are stable and he was saturating at 91% on 2 L. Review of Systems Constitutional: Reports: no symptoms. Cardiovascular: Reports: no symptoms. Respiratory: Reports: cough, short of breath, wheezing. Gastrointestinal: Reports: no symptoms. Genitourinary: Reports: no symptoms. Musculoskeletal: Reports: no symptoms. Skin: Reports: no symptoms. Neurological/Psychological: Reports: no symptoms. Objective Last 24 Hrs of Vital Signs/I&O Vital Signs Date Time Temp Pulse Resp B/P B/P Pulse O2 O2 Flow FiO2 Mean Ox Delivery Rate 06/13 1538 19 06/13 1410 97.5 94 91 126/72 91 Nasal 2.0L Cannula 06/13 1050 90 Nasal 2.0L Cannula 06/13 0917 81 134/76 06/13 0917 81 134/76 06/13 0800 92 Nasal 2.0L Cannula 06/13 0759 91 Nasal 2.0L Cannula 06/13 0657 98.2 81 18 134/76 92 06/13 0114 Nasal 2.0L Cannula 06/12 2337 64 06/12 2102 98.3 105 20 100/60 91 Nasal 2.0L Cannula 06/12 1710 Nasal 2.0L Cannula 06/12 1655 91 Nasal 2.0L Cannula Intake & Output 06/13 1600 06/13 0800 06/13 0000 Intake Total 730 120 510 Output Total 500 600 500 Balance 230 -480 10 Intake, IV 10 30 Intake, Oral 720 120 480 Number 1 3 Bowel Movements Output, Urine 500 600 500 Physical Exam General Appearance: Alert, Oriented X3, Cooperative, No Acute Distress Skin: No Rashes, No Breakdown, No Significant Lesion Skin Temp/Moisture Exam: Warm/Dry HEENT: Atraumatic, PERRLA, EOMI Cardiovascular: Regular Rate, Normal S1, Normal S2, No Murmurs Abdomen: Normal Bowel Sounds, Soft, No Tenderness Neurological: Normal Speech Current Medications: Current Medications Sig/Mark Start time Last Medication Dose Route Stop Time Status Admin Albuterol Sulfate 3 ML EVERY 4 HRS/AWAKE 06/12 2000 AC 06/13 INH 1136 Albuterol Sulfate 3 ML EVERY 4 HRS/AWAKE .. 06/11 1934 DC 06/12 INH 06/12 195 1121 Albuterol Sulfate 2 PUF Q4-6 PRN PRN 06/11 1530 AC INH Amiodarone HCl 200 MG DAILY 06/12 0900 AC 06/13 PO 0917 Cholecalciferol 1,000 IU DAILY 06/12 1123 AC 06/13 PO 0917 Clonazepam 0.5 MG DAILY 06/11 1525 AC 06/13 PO 06/18 1524 0916 Cyanocobalamin 1,000 MCG DAILY 06/12 1456 AC 06/13 PO 0917 Gabapentin 600 MG BID 06/11 2100 AC 06/13 PO 0916 Guaifenesin 600 MG ONCE ONE 06/12 2145 DC 06/12 PO 06/12 2146 2334 Lactobacillus 1 CAP DAILY 06/13 1215 AC 06/13 Acidophilus PO 1315 Methylprednisolone 40 MG Q8 06/11 1500 DC 06/12 IV 06/12 2300 2051 Midodrine 5 MG BID 06/11 2100 AC 06/13 PO 0917 Mirtazapine 15 MG QPM 06/11 2100 AC 06/12 PO 205 Moxifloxacin HCl 400 MG DAILY 06/12 0900 AC 06/13 PO 0918 Omeprazole 20 MG BID 06/11 2100 AC 06/13 PO 0917 Patient Medication 1 ED ONE ONE 06/13 1330 DC Teaching ED 06/13 1331 Prednisone 50 MG DAILY 06/13 0900 AC 06/13 PO 0917 Tamsulosin HCl 0.4 MG DAILY 06/11 1527 AC 06/13 PO 0917 Tizanidine HCl 4 MG QPM PRN 06/11 1530 AC PO Warfarin Sodium 4 MG COUMADIN 1700 ONE 06/13 1700 AC PO 06/13 1701 Last 24 Hrs of Lab/Franco Results Last 24 Hrs of Labs/Mics: Laboratory Tests 06/13/18 0657: PT 19.7 H, INR 1.80 H, CBC w Diff NO MAN DIFF REQ, RBC 3.67 L, MCV 89.0, MCH 29.6, MCHC 33.3, RDW 18.5 H, MPV 8.3, Gran % 92.6 H, Lymphocytes % 2.7 L, Monocytes % 4.7, Eosinophils % 0, Basophils % 0, Absolute Granulocytes 15.5 H, Absolute Lymphocytes 0.4 L, Absolute Monocytes 0.8 H, Absolute Eosinophils 0, Absolute Basophils 0 Assessment/Plan Assessment: 72 year old male with a PMH significant for COPD, afib, lung cancer sp right upper lobectomy 7 years ago with one year of chemo and radiation, vascular disease sp AAA repair also 7 years ago, afib with implanted loop recorder on Coumadin, that is BIBA for complaints of dyspnea and altered mental status. The patient has been apparently deteriorating over the past couple months, with mild cough with brownish/reddish sputum, on and off dizziness and blurriness of the eyes, and more recently, confusion and unsteadiness on his feet. The patient has also recently had uncontrolled bleeding. He is on Coumadin 4 mg daily and as per his , his pills have been mixed up recently and he may have taken more than the doses been prescribed. The patient was found in the field to be hypoxic and was placed on supplemental oxygen. He was given Solu-Medrol as well as the field. The patient sees a PCP and rubber ball finisher in [place], phone numbers in the HPI. Of note, patient is severely allergic to penicillin, has anaphylactic reaction. Vitals in the urgency room were temperature 101.2 which decreased to 99, heart rate 102 which decreased to 90s, respiratory rate 24, blood pressure 125/56, 91% oxygen saturation on 4 L nasal cannula which was tapered down to 2 L, 94% oxygen saturation. Labs showed a WBC count of 9.4 with bandemia, hemoglobin 11.4, no old labs available, creatinine 1.4, BNP 2370, negative troponin, INR 8.09 with repeat INR of 8.43 Chest x-ray showed evidence of remote right upper lobectomy, upper half right hemithorax completely opacified which signifies plural effusion or fibrotic changes or tumor recurrence. Additionally seen was left lower lobe opacity. EKG showed a rate of 100 with a QTC of 470 and flipped P waves significant for ectopic atrial beats. In the ED, patient had blood cultures 2 taken and got 1 dose of moxifloxacin. Assessment -Acute hypoxic respiratory failure secondary to pneumonia/lung cancer recurrence /COPD: We started the patient on moxifloxacin as he has severe penicillin allergy. Chest x-ray shows evidence of pneumonia as well as potential recurrence of cancer/pleural effusionfibrotic changes. The patient is septic with an elevated heart rate and temperature up to 102 on admission with a suspected source of infection being the lung. -Hemoptysis: Patient had 1 episode of hemoptysis with about a teaspoon of blood produced. He recently had brownish reddish sputum for the past few weeks. -Supratherapeutic INR: Patient usually takes 4 mg of warfarin every day was found today to have INR over 8 -Altered mental status and falls: Patient recently had unsteadiness on his feet , confusion, poor memory, and a fall out of bed. -History of lung cancer: Right upper lobe lobectomy 7 years ago with chemotherapy and radiation for 1 year. The patient has not followed up with an oncologist for several years. -Dysphagia: Patient notices difficulty in swallowing pills, no issues with swallowing food or drink. -History of A. fib with implanted loop recorder: Patient sees a rubber ball finisher and EP down in [place], has an appointment with them in about one month. The patient is on warfarin for anticoagulation and amiodarone. He also has implantable loop recorder. Plan -Continue the patient on general medical floors for evaluation and treatment -Continue moxifloxacin 400 mg daily, needs 7 days total. -Solu-Medrol 40 mg every 8 tapered to 50mg prednisone with 8 day taper -For the patient's acute kidney injury we gave 1 bag of normal saline to good effect. -Follow up echocardiogram today and medtronic interrogation as suggested by cardio -We ordered CT head without contrast as patient has supratherapeutic INR and did fall earlier prior to admission. It showed no acute intracranial abnormality. -We ordered CT of the chest without contrast as patient has a history of lung cancer, recurrent hemoptysis, and question of recurrence of mass on his chest x- ray. CT chest showed dense fibrosis and volume loss in the superior segments of the right lower and middle lobes near the apex of the right hemithorax consistent with prior radiation. No superimposed lesions were found. Also found was patchy multifocal groundglass airspace opacities with small consolidative/solid components possibly due to multifocal pneumonia or multifocal adenocarcinoma in situ. There are finally areas of subtle interlobular septal thickening suggesting early fibrotic change also likely related to prior asbestos exposure. We will treat patient for the pneumonia and she will likely require a repeat CT scan after 4-6 weeks to evaluate for any cancer recurrence. -There is a potential that patient is having lung damage secondary to amiodarone so we will decrease the dosage from 200 twice daily to [address] Ann, insurance claims analyst. We have placed a call to his rubber ball finisher in [place] but have not heard back in regards to stopping the amio. We have placed a cardiology consult for help with this. -Follow up blood cultures and lower respiratory cultures, urine Legionella and strep negative -Repeat CBC was stable despite patient's hemoptysis. -We gave vitamin K by mouth 10 mg for INR reversal with repeat INR at 3.43. Today's coumadin is less than 2 so we will dose 4mg coumadin. -Patient was cleared with swallow evaluation but CT scan showed reflux of food into the upper esophagus. Speech and swallow suggested normal diet but taking pills with apple sauce. -Physical therapy consult as patient has had recent unsteadiness on his feet. -Patient will need follow up with his doctor as he was found to have low TSH and T3 indicative of amiodarone effects. He will need follow up LFTs and TFTs q3-6 months. -Additionally carotid ultrasound showed hemodynamically significant stenosis in left external carotid artery and he will need to follow up with his PCP for a vascular consult one he arrives back in [place]. Full Code Heart healthy diet DVT prophylaxis with Alps only Problem List: 1. Swallowing difficulty 2. Hemoptysis 3. History of lobectomy of lung 4. History of lung cancer 5. Pneumonia Pain Ratin Pain Location: na Pain Goal: Remain pain free Pain Plan: na Tomorrow's Labs & Rationales: Letitia Barrera MD 06/13/18 0938: Attending MD Review Statement Attending Statement Attending MD Statement: examined this patient, discuss w/resident/PA/CARD HANGER, agreed w/resident/PA/CARD HANGER, discussed with family, reviewed EMR data (avail), discussed with nursing, discussed with case mgmt, reviewed images Attending Assessment/Plan: Continues to have this nagging cough mostly unproductive. This is a 72-year-old male with a past medical history of COPD and previous lung cancer treated 7 years ago, AMary akhtar with a link recorder and on amiodarone and Coumadin. He is here with acute hypoxemic respiratory failure secondary to multifocal pneumonia. He is pen allergic and we are treating with moxifloxacin. He had a modified barium swallow which showed significant esophageal dysmotility but no problems with oropharyngeal swallowing. We verbally discussed with GI and he is safe to eat his diet as tolerated and follow-up with GI as an outpatient. He lives in [place], he is visiting his daughter here and he plans to return to [place] next week once medically stable to pursue all his medical treatment there. The plan is to taper off the oxygen and if stable anticipate discharge tomorrow with close outpatient follow-up of multiple issues. 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 We've cut the dose of amiodarone 200 mg a day and we reached out to the rubber ball finisher in [place], without a response about whether we can stop amnio completely. Cardiology is also seeing him, we are getting an echocardiogram plan is to interrogate the link device later today. Patient takes Coumadin and came in with an elevated INR we think secondary to his doubling up on doses. We gave him 1 dose of vitamin K to reverse him as he was having hemoptysis associated with the elevated INR and now that it stable with restart the Coumadin. We spoke to the patient the patient's daughter and patient's at length regarding the multiple issues that need close follow-up in [place].
[2018-06-13 09:17] LABS: GRANULOCYTE % 92.6 % (42.2-75.2)
[2018-06-13] MEDS ORDERED: MOXIFLOXACIN H400 M2 PO (11:54)
[2018-06-13] MEDS ORDERED: PREDNISONE10 M2 PO (11:54)
[2018-06-13] MEDS ORDERED: VITAMIN B-121000 MC3 PO (11:54)
[2018-06-13] MEDS ORDERED: VITAMIN D31000 UNI2 PO (11:54)
[2018-06-13] MEDS ORDERED: AMIODARONE HCL200 M2 PO (11:56)
[2018-06-13 14:10] VITALS: BP 126/72
--- NOTE | 2018-06-13 14:23 | PN- Pulmonary ---
Subjective HPI/Critical Care Issues: Feels better Still has a cough Mild hemoptysis Objective Current Medications: Current Medications Sig/Mark Start time Last Medication Dose Route Stop Time Status Admin Albuterol Sulfate 3 ML EVERY 4 HRS/AWAKE 06/12 2000 AC 06/13 INH 113 Albuterol Sulfate 3 ML EVERY 4 HRS/AWAKE .. 06/11 1934 DC 06/12 INH 06/12 1959 1121 Albuterol Sulfate 2 PUF Q4-6 PRN PRN 06/11 1530 AC INH Amiodarone HCl 200 MG DAILY 06/12 0900 AC 06/13 PO 0917 Cholecalciferol 1,000 IU DAILY 06/12 1123 AC 06/13 PO 0917 Clonazepam 0.5 MG DAILY 06/11 1525 AC 06/13 PO 06/18 1524 0916 Cyanocobalamin 1,000 MCG DAILY 06/12 1456 AC 06/13 PO 0917 Gabapentin 600 MG BID 06/11 2100 AC 06/13 PO 0916 Guaifenesin 600 MG ONCE ONE 06/12 2145 DC 06/12 PO 06/12 2146 2334 Lactobacillus 1 CAP DAILY 06/13 1215 AC 06/13 Acidophilus PO 1315 Methylprednisolone 40 MG Q8 06/11 1500 DC 06/12 IV 06/12 2300 2051 Midodrine 5 MG BID 06/11 2100 AC 06/13 PO 0917 Mirtazapine 15 MG QPM 06/11 2100 AC 06/12 PO 2056 Moxifloxacin HCl 400 MG DAILY 06/12 0900 AC 06/13 PO 0918 Omeprazole 20 MG BID 06/11 2100 AC 06/13 PO 0917 Patient Medication 1 ED ONE ONE 06/13 1330 NE Teaching ED 06/13 1331 Patient Medication 1 ED ONE ONE 06/12 1600 NE Teaching ED 06/12 1601 Prednisone 50 MG DAILY 06/13 0900 AC 06/13 PO 0917 Tamsulosin HCl 0.4 MG DAILY 06/11 1527 AC 06/13 PO 0917 Tizanidine HCl 4 MG QPM PRN 06/11 1530 AC PO Warfarin Sodium 4 MG COUMADIN 1700 ONE 06/13 1700 AC PO 06/13 1701 Vital Signs & I&O Last 24 Hrs of Vitals and I&O: Vital Signs Date Time Temp Pulse Resp B/P B/P Pulse O2 O2 Flow FiO2 Mean Ox Delivery Rate 06/13 1050 90 Nasal 2.0L Cannula 06/13 0917 81 134/76 06/13 0917 81 134/76 06/13 0800 92 Nasal 2.0L Cannula 06/13 0759 91 Nasal 2.0L Cannula 06/13 0657 98.2 81 18 134/76 92 06/13 0114 Nasal 2.0L Cannula 06/12 2337 64 06/12 2102 98.3 105 20 100/60 91 Nasal 2.0L Cannula 06/12 1710 Nasal 2.0L Cannula 06/12 1655 91 Nasal 2.0L Cannula 06/12 1600 92 Nasal 2.0L Cannula 06/12 1443 112/64 Intake & Output 06/13 1600 06/13 0800 06/13 0000 Intake Total 120 510 Output Total 600 500 Balance -480 10 Intake, IV 30 Intake, Oral 120 480 Number 3 Bowel Movements Output, Urine 600 500 Laboratory Tests 06/13 0657 Coagulation PT (9.4 - 12.5 SEC) 19.7 H INR (0.90 - 1.17) 1.80 H Hematology CBC w Diff NO MAN DIFF REQ WBC (4.8 - 10.8 /CUMM) 16.7 H RBC (4.70 - 6.10 /CUMM) 3.67 L Hgb (14.0 - 18.0 G/DL) 10.9 L Hct (42 - 52 %) 32.7 L MCV (80.0 - 94.0 FL) 89.0 MCH (27.0 - 31.0 PG) 29.6 MCHC (33.0 - 37.0 G/DL) 33.3 RDW (11.5 - 14.5 %) 18.5 H Plt Count (130 - 400 /CUMM) 267 MPV (7.4 - 10.4 FL) 8.3 Gran % (42.2 - 75.2 %) 92.6 H Lymphocytes % (20.5 - 51.1 %) 2.7 L Monocytes % (1.7 - 9.3 %) 4.7 Eosinophils % (0 - 5 %) 0 Basophils % (0.0 - 2.0 %) 0 Absolute Granulocytes (1.4 - 6.5 /CUMM) 15.5 H Absolute Lymphocytes (1.2 - 3.4 /CUMM) 0.4 L Absolute Monocytes (0.10 - 0.60 /CUMM) 0.8 H Absolute Eosinophils (0.0 - 0.7 /CUMM) 0 Absolute Basophils (0.0 - 0.2 /CUMM) 0 07/12 0720 Chemistry Sodium (137 - 145 mmol/L) 141 Potassium (3.5 - 5.1 mmol/L) 4.4 Chloride (98 - 107 mmol/L) 105 Carbon Dioxide (22 - 30 mmol/L) 28 Anion Gap (5 - 16) 8 BUN (9 - 20 mg/dL) 22 H Creatinine (0.7 - 1.2 mg/dL) 1.0 Estimated GFR (>60 ml/min) > 60 BUN/Creatinine Ratio (7 - 25 %) 22.0 Vitamin B12 (239 - 931 pg/mL) 250 25-OH Vitamin D Total (30 - 100 ng/ml) 11.3 L Folate (2.76 - 20.0 ng/mL) 7.0 Free T4 (0.78 - 2.44 ng/dL) 1.79 Total T3 (0.97 - 1.69 ng/mL) 0.76 L TSH &T3 &Free T4 Intrp (0.27 - 4.20 uIU/mL) 0.136 L Coagulation PT (9.4 - 12.5 SEC) 37.8 H INR (0.90 - 1.17) 3.43 H Hematology CBC w Diff NO MAN DIFF REQ WBC (4.8 - 10.8 /CUMM) 12.4 H RBC (4.70 - 6.10 /CUMM) 3.70 L Hgb (14.0 - 18.0 G/DL) 11.0 L Hct (42 - 52 %) 33.1 L MCV (80.0 - 94.0 FL) 89.6 MCH (27.0 - 31.0 PG) 29.6 MCHC (33.0 - 37.0 G/DL) 33.1 RDW (11.5 - 14.5 %) 17.8 H Plt Count (130 - 400 /CUMM) 239 MPV (7.4 - 10.4 FL) 8.3 Gran % (42.2 - 75.2 %) 91.0 H Lymphocytes % (20.5 - 51.1 %) 4.0 L Monocytes % (1.7 - 9.3 %) 4.9 Eosinophils % (0 - 5 %) 0 Basophils % (0.0 - 2.0 %) 0.1 Absolute Granulocytes (1.4 - 6.5 /CUMM) 11.3 H Absolute Lymphocytes (1.2 - 3.4 /CUMM) 0.5 L Absolute Monocytes (0.10 - 0.60 /CUMM) 0.6 Absolute Eosinophils (0.0 - 0.7 /CUMM) 0 Absolute Basophils (0.0 - 0.2 /CUMM) 0 Serology RPR Titer/FTA (NONREACTIVE) NONREACTIVE 06/11 1427 Hematology CBC w Diff NO MAN DIFF REQ WBC (4.8 - 10.8 /CUMM) 8.7 RBC (4.70 - 6.10 /CUMM) 3.82 L Hgb (14.0 - 18.0 G/DL) 11.4 L Hct (42 - 52 %) 34.1 L MCV (80.0 - 94.0 FL) 89.2 MCH (27.0 - 31.0 PG) 29.7 MCHC (33.0 - 37.0 G/DL) 33.4 RDW (11.5 - 14.5 %) 18.2 H Plt Count (130 - 400 /CUMM) 204 MPV (7.4 - 10.4 FL) 8.0 Gran % (42.2 - 75.2 %) 94.8 H Lymphocytes % (20.5 - 51.1 %) 4.3 L Monocytes % (1.7 - 9.3 %) 0.8 L Eosinophils % (0 - 5 %) 0 Basophils % (0.0 - 2.0 %) 0.1 Absolute Granulocytes (1.4 - 6.5 /CUMM) 8.2 H Absolute Lymphocytes (1.2 - 3.4 /CUMM) 0.4 L Absolute Monocytes (0.10 - 0.60 /CUMM) 0.1 Absolute Eosinophils (0.0 - 0.7 /CUMM) 0 Absolute Basophils (0.0 - 0.2 /CUMM) 0 Microbiology Date/Time Procedure - Status Source Growth 06/12 600 Legionella Antigen - COMP URINE ROUT 06/12 600 Streptococcus pneumoniae Antigen (M - COMP URINE ROUT 06/11 2020 Respiratory Culture - RES LOWER RESP GRAM NEGATIVE RODS 06/11 2020 Gram Stain - RES LOWER RESP 06/11 08 Blood Culture - RES BLOOD 06/11 0840 Blood Culture - RES BLOOD Impression/Plan Impression/Plan Impression/Plan: barium esophagogram IMPRESSION: Extremely limited esophagram as the patient was only able to take small boluses and could not lie prone. Additionally, the patient's chin obscured visualization of the upper esophagus. Overall there is severe dysmotility and reflux present up to the level of the upper neck. No gross stricture is identified. These findings place the patient at risk for aspiration. This patient may benefit from a modified barium swallow with speech pathology. DICTATED BY: Jayson Schuster MD DATE/TIME DICTATED:06/12/181038 CT chest LUNGS: Chain josue are present in the right suprahilar region, consistent with prior right upper lobectomy. The superior portions of the right upper and right lower lobes are densely opacified with volume loss and surrounding architectural distortion, most compatible with chronic fibrotic changes from prior radiation. Sensitivity for superimposed lesions in this region is limited without intravenous contrast material. There are patchy foci of round glass attenuation throughout the upper lobes. A few these regions are somewhat rounded with internal near solid components. Mild interlobular septal thickening is present at the component at the right lung base posteriorly. Additional interlobular septal thickening is present at the lingula. No discrete pulmonary nodules are identified. Airways are clear. MEDIASTINUM: Heart is normal in size. No pericardial effusion. Calcific atherosclerosis is present in the thoracic aorta and coronary arteries. There is reflux of food material into the esophagus, almost reaching the cervical esophagus. No hilar or mediastinal adenopathy. PLEURA: Multiple calcified pleural plaques are present bilaterally. The partially calcified pleural plaque at the right costovertebral angle inferiorly measures up to 1 cm in thickness with peripheral calcifications. No effusion. AXILLA: No lymphadenopathy. UPPER ABDOMEN: Unremarkable. OSSEOUS STRUCTURES: Multilevel degenerative disc disease present in the thoracic spine. There is a chronic appearing superior endplate fracture at the T6 vertebral body with a superimposed Schmorl's node. No focal osseous lesions are identified. IMPRESSION: 1. Status post right upper lobectomy. Dense fibrosis and volume loss in the superior segments of the right lower and middle lobes near the apex of the right hemithorax, most consistent with changes of prior radiation therapy. No superimposed lesions are identified. 2. Patchy multifocal groundglass airspace opacities with small consolidative/solid components. This may be due to multifocal pneumonia, though correlation with type of the patient's cancer is advised as multifocal adenocarcinoma in situ of the lung can have a similar appearance, particularly given the context of underlying asbestos exposure. 3. Areas of subtle interlobular septal thickening suggesting early fibrotic change, also likely related to prior asbestos exposure. 4. Reflux of food material into the upper esophagus, presenting a risk for aspiration. DICTATED BY: Jovon Beltre MD Head ct nil acute MBS nil sig IMPRESSION 72-year-old male past medical history of COPD not on home oxygen, Locally advanced lung cancer status post right upper lobectomy xrt and chemo and treatment 7 years ago, AAA repair in the past and atrial fibrillation with a loop recorder. He is here from [place] visiting his daughter and for the past week has been having increasing shortness of breath. The family also feels he's been confused and mixing up his medications and generally feeling weak. They brought him in today because he fell out of bed and was having visible difficulty breathing. 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 as well as he is on high dose amiodarone * History of locally advanced Lung ca 6 yrs ago with rt upperlobectomy followed by xrt and chemo now with evidence of dense fibrosis in the rt middle lobe and volume loss * COPD with mild wheezing with mild copd exacerbation, with ongoing smoking * Hypoxic resp failure now improving * Pleural thickening and evidence of pulm fibrosis needs longitudinal follow up * Esophageal thickening with reflux with dysphagia -barium swallow reviewed high risk for aspiration - needs follow up eval * Pafib with supratherapeutic inr now with hemoptysis (prob related to pulm infiltrate), now with sinus rhythm prob - Inr trending down * Elevated BNP high risk for chf * Gait imbalance and recent memory loss - needs eval- * Sig B12 def noted by blood work needs b12 injections followed by high dose po/ vit d def noted * GEO resolved * Near syncope and a fall REC Cont abx for 5-7 days Amiodarone _ lower dose Po steroids Prednisone 50 and taper over 8 days Ok to dc soon Will follow
--- NOTE | 2018-06-13 19:36 | PN- Cardiology ---
Subjective Subjective: Feels improved today with less shortness of breath. Denies any palpitations or chest discomfort. Objective Vital Signs and I&Os Vital Signs Date Time Temp Pulse Resp B/P B/P Pulse O2 O2 Flow FiO2 Mean Ox Delivery Rate 06/13 1750 92 Nasal 2.0L Cannula 06/13 1600 91 Nasal 2.0L Cannula 06/13 1538 19 06/13 1410 97.5 94 91 126/72 91 Nasal 2.0L Cannula 06/13 1050 90 Nasal 2.0L Cannula 06/13 0917 81 134/76 06/13 0917 81 134/76 06/13 0800 92 Nasal 2.0L Cannula 06/13 0759 91 Nasal 2.0L Cannula 06/13 0657 98.2 81 18 134/76 92 06/13 0114 Nasal 2.0L Cannula 06/12 2337 64 06/12 2102 98.3 105 20 100/60 91 Nasal 2.0L Cannula Intake & Output 06/13 1600 06/13 0800 06/13 0000 06/12 1600 06/12 0800 06/12 0000 Intake Total 730 120 510 0 0 240 Output Total 500 600 500 Balance 230 -480 10 0 0 240 Intake, IV 10 30 0 Intake, Oral 720 120 480 0 0 240 Number 1 3 0 Bowel Movements Output, Urine 500 600 500 Patient 220 lb Weight Weight Reported by Patient Measurement Method Physical Exam: Well-developed, overweight elderly male in no acute distress with nasal oxygen in place. Vital signs: See above. HEENT: Normocephalic, atraumatic, EOMI, slightly dry mucous membranes. Neck: No JVD, bilateral carotid bruits versus transmitted systolic murmur right greater than left. Lungs: Decreased breath sounds bilaterally. Heart: S1, S2 with grade 1-2/6 systolic murmur. No gallop or rub. PMI not well felt. Abdomen: Soft, nontender, positive bowel sounds. Extremities: No edema. Current Medications: Current Medications Sig/Mark Start time Last Medication Dose Route Stop Time Status Admin Albuterol Sulfate 3 ML EVERY 4 HRS/AWAKE 06/12 2000 AC 06/13 INH 1749 Albuterol Sulfate 3 ML EVERY 4 HRS/AWAKE .. 06/11 193 DC 06/12 INH 06/12 195 1121 Albuterol Sulfate 2 PUF Q4-6 PRN PRN 06/11 1530 AC INH Amiodarone HCl 200 MG DAILY 06/12 0900 AC 06/13 PO 0917 Cholecalciferol 1,000 IU DAILY 06/12 1123 AC 06/13 PO 0917 Clonazepam 0.5 MG DAILY 06/11 1525 AC 06/13 PO 06/18 1524 0916 Cyanocobalamin 1,000 MCG DAILY 06/12 1456 AC 06/13 PO 0917 Gabapentin 600 MG BID 06/11 2100 AC 06/13 PO 0916 Guaifenesin 600 MG Q12 06/13 2100 AC 06/13 PO 1758 Guaifenesin 600 MG ONCE ONE 06/12 2145 DC 06/12 PO 06/12 214 2334 Lactobacillus 1 CAP DAILY 06/13 1215 AC 06/13 Acidophilus PO 1315 Methylprednisolone 40 MG Q8 06/11 1500 DC 06/12 IV 06/12 2300 205 Midodrine 5 MG BID 06/11 2100 AC 06/13 PO 0917 Mirtazapine 15 MG QPM 06/11 2100 AC 06/12 PO 205 Moxifloxacin HCl 400 MG DAILY 06/12 0900 AC 06/13 PO 0918 Omeprazole 20 MG BID 06/11 2100 AC 06/13 PO 0917 Patient Medication 1 ED ONE ONE 06/13 1330 DC Teaching ED 06/13 1331 Prednisone 50 MG DAILY 06/13 0900 AC 06/13 PO 0917 Tamsulosin HCl 0.4 MG DAILY 06/11 1527 AC 06/13 PO 0917 Tizanidine HCl 4 MG QPM PRN 06/11 1530 AC PO Warfarin Sodium 4 MG COUMADIN 1700 ONE 06/13 1700 DC 06/13 PO 06/13 1701 1616 Results Last 48 Hrs of Labs/Mics: Laboratory Tests 06/13/18 0657: PT 19.7 H, INR 1.80 H, CBC w Diff NO MAN DIFF REQ, RBC 3.67 L, MCV 89.0, MCH 29.6, MCHC 33.3, RDW 18.5 H, MPV 8.3, Gran % 92.6 H, Lymphocytes % 2.7 L, Monocytes % 4.7, Eosinophils % 0, Basophils % 0, Absolute Granulocytes 15.5 H, Absolute Lymphocytes 0.4 L, Absolute Monocytes 0.8 H, Absolute Eosinophils 0, Absolute Basophils 0 06/12/18 0720: Anion Gap 8, Estimated GFR > 60, BUN/Creatinine Ratio 22.0, Vitamin B12 250, 25- OH Vitamin D Total 11.3 L, Folate 7.0, Free T4 1.79, Total T3 0.76 L, TSH &T3 &Free T4 Intrp 0.136 L, PT 37.8 H, INR 3.43 H, CBC w Diff NO MAN DIFF REQ, RBC 3.70 L, MCV 89.6, MCH 29.6, MCHC 33.1, RDW 17.8 H, MPV 8.3, Gran % 91.0 H , Lymphocytes % 4.0 L, Monocytes % 4.9, Eosinophils % 0, Basophils % 0.1, Absolute Granulocytes 11.3 H, Absolute Lymphocytes 0.5 L, Absolute Monocytes 0.6, Absolute Eosinophils 0, Absolute Basophils 0, RPR Titer/FTA NONREACTIVE Microbiology 06/12 600 URINE ROUT: Legionella Antigen - COMP 06/12 600 URINE ROUT: Streptococcus pneumoniae Antigen (M - COMP Recent Imaging Studies: Carotid ultrasound 06/12/2018: Atherosclerotic disease of the carotid arteries. The abnormally elevated systolic velocities in the right ICA with ICA/CCA ratio of 2.48, are suggestive of a proximal ICA stenosis in the range of 50-69%. No hemodynamically significant stenosis of the left ICA. However, there is hemodynamically significant stenosis of the left ECA. Assessment/Plan Assessment/Plan [id number] w/ hx of very heavy tob use (3 ppd x 50+ yrs), COPD, lung ca s/p RUL lobectomy ~2012, chemo & radiation Rx, vascular disease s/p open AAA repair ~ 2010, previously treated dyslipidemia, CAD s/p PCI/stenting, & PAF on amiodarone /warfarin s/p LINQ recorder who presented to the ED on 06/11/2018 w/ AMS, SOB , cough productive of brown sputum, following a witnessed fall from bed from which he could not get up and who was found to be hypoxemic and febrile w/ a left shift on his WBC count, GEO, supratherapeutic INR, abnormal CXR/chest CT etc. There is a concern from a pulmonary standpoint that the patient's respiratory decompensation was on the basis of amiodarone toxicity. Not really a good alternative option to the amiodarone, as this is most efficient antiarrhythmic to maintain sinus rhythm. Interrogation of the [employer] LINQ recorder on 06/12/2018 revealed the following: Several episodes of bradycardia with pauses on 05/12/2018 with the 2 longest pause of ~3.0 seconds duration, one episode of atrial fibrillation on had a median ventricular rate of ~120 bpm that lasted ~24 min., no device recorded episodes since 05/12/2018, and no correlation between symptomatic episodes and dysrhythmic events. He he has had "breakthrough" of atrial fibrillation on the amiodarone at 400 mg daily. The plan was to defer to his attending day care director/notereader in [place] regarding the continued use of this agent. However, pulmonary medicine is very concerned about amiodarone toxicity and recommends discontinuing this altogether. Given the recurrent atrial fibrillation it would be prudent to maintain him on full anticoagulation. Recommendations: * Discontinue maintenance amiodarone, given concerns of pulmonary toxicity. * Continue full anticoagulation. * Outpatient follow-up of his moderate right internal carotid artery disease. * DVT prophylaxis. Continue telemetry? Not applicable (On 2 No.)
[2018-06-13 21:55] VITALS: BP 160/62
[2018-06-13 22:00] VITALS: BP 140/78
[2018-06-14] VITALS (7 sets, daily range): BP systolic 108–136; BP diastolic 60–74
[2018-06-14 08:13] LABS: PT 21.8 SEC (9.4-12.5)
[2018-06-14 08:21] LABS: ABSOLUTE BASOPHIL COUNT 0 /CUMM (0.0-0.2); ABSOLUTE EOSINOPHIL COUNT 0 /CUMM (0.0-0.7); ABSOLUTE LYMPH COUNT 0.9 /CUMM (1.2-3.4); ABSOLUTE MONOCYTE COUNT 1.2 /CUMM (0.10-0.60); BASOPHIL % 0 % (0.0-2.0); EOSINOPHIL % 0 % (0-5); GRANULOCYTE % 84.8 % (42.2-75.2); HEMATOCRIT 32.5 % (42-52); MEAN CORPUSCULAR HGB 30.1 PG (27.0-31.0); MEAN CORPUSCULAR HGB CONC 33.6 G/DL (33.0-37.0); MEAN CORPUSCULAR VOLUME 89.6 FL (80.0-94.0); MEAN PLATELET VOLUME 8.3 FL (7.4-10.4); PLATELET COUNT 256 /CUMM (130-400); RBC DISTRIBUTION WIDTH 18.7 % (11.5-14.5); RED BLOOD CELL CT 3.62 /CUMM (4.70-6.10)
--- NOTE | 2018-06-14 09:15 | PN- Housestaff ---
See Addendum Subjective Follow-up For: Acute hypoxic respiratory failure secondary to pneumonia/lung cancer recurrence/ COPD/pneumonitis secondary to amiodarone Supratherapeutic INR Swallowing difficulties Hemoptysis Subjective: Patient seen and examined. Experienced episode of increased oxygen requirement, please see event note. Patient oxygen requirement increased from 2.5-5 L overnight. The patient is on no oxygen at home. He states that he felt the same way when he had an UT, noted head pressure feeling like "the blood is rushing to my head, feels as if I am going to pass out". He noted no chest pain but did have some back of neck pain worse on palpation. On exam he was found to have the same left lower rhonchi and decreased breath sounds on the right status post upper right lobectomy, wheezing throughout. Labs were sent including troponin, BNP, ABG. Oral steroids were DC'd and IV steroids 40 every 8 were started. The patient was transferred to telemetry for continuous pulse oximetry and also cardiac monitoring as his loop recorder was interrogated and did find pauses and runs of A. fib, although not recent. Chest x-ray done was basically unchanged from prior. Vitals were stable other than desatration O2. Blood pressures same both arms. Review of Systems Constitutional: Reports: malaise, weakness. EENTM: Reports: no symptoms. Cardiovascular: Reports: no symptoms. Respiratory: Reports: cough, short of breath, wheezing. Gastrointestinal: Reports: no symptoms. Genitourinary: Reports: no symptoms. Musculoskeletal: Reports: no symptoms. Skin: Reports: no symptoms. Neurological/Psychological: Reports: anxiety. Hematologic/Endocrine: Reports: no symptoms. Objective Last 24 Hrs of Vital Signs/I&O Vital Signs Date Time Temp Pulse Resp B/P B/P Pulse O2 O2 Flow FiO2 Mean Ox Delivery Rate 06/14 0953 98.6 93 30 108/66 96 06/14 0913 99 126/64 06/14 0913 99 16/64 06/14 08 98.9 92 22 122/60 88 Nasal 5.0L Cannula 06/14 0807 93 Nasal 40% Cannula 06/14 0800 85 Nasal 5.0L Cannula 06/14 07 98.9 88 124/62 06/14 0000 91 Nasal 3.0L Cannula 06/13 2200 97 140/78 91 06/13 2155 97.9 98 20 160/62 91 Nasal 2.0L Cannula 06/13 1750 92 Nasal 2.0L Cannula 06/13 1600 91 Nasal 2.0L Cannula 06/13 1538 19 06/13 1410 97.5 94 91 126/72 91 Nasal 2.0L Cannula Intake & Output 06/14 1600 06/14 0800 06/14 0000 Intake Total Output Total Balance Number 1 Bowel Movements Physical Exam General Appearance: Alert, Oriented X3, Cooperative, Mild Distress Skin: No Rashes, No Breakdown, No Significant Lesion Skin Temp/Moisture Exam: Warm/Dry HEENT: Atraumatic, PERRLA, EOMI, Mucous Membr. moist/pink Cardiovascular: Regular Rate, Normal S1, Normal S2, No Murmurs Lungs: wheezing throughout, left lower lobe rhonchi, upper right lobe decreased breath sounds. Abdomen: Normal Bowel Sounds, Soft, No Tenderness Neurological: Normal Speech Extremities: No Clubbing, No Cyanosis, No Edema, Normal Pulses Vascular: Normal Pulses, Pulses Symmetrical Current Medications: Current Medications Sig/Mark Start time Last Medication Dose Route Stop Time Status Admin Acetaminophen 650 MG ONCE ONE 06/14 1030 DC PO 06/14 1031 Albuterol Sulfate 3 ML EVERY 4 HRS/AWAKE 06/12 2000 AC 06/14 INH 0806 Albuterol Sulfate 2 PUF Q4-6 PRN PRN 06/11 1530 AC INH Amiodarone HCl 200 MG DAILY 06/12 0900 AC 06/14 PO 0913 Cholecalciferol 1,000 IU DAILY 06/12 1123 AC 06/14 PO 09 Clonazepam 0.5 MG DAILY 06/11 1525 AC 06/14 PO 06/18 1524 0912 Cyanocobalamin 1,000 MCG DAILY 06/12 1456 AC 06/14 PO 0912 Gabapentin 600 MG BID 06/11 2100 AC 06/14 PO 0912 Guaifenesin 600 MG Q12 06/13 2100 AC 06/14 PO 09 Lactobacillus 1 CAP DAILY 06/13 1215 AC 06/14 Acidophilus PO 09 Methylprednisolone 40 MG Q8 06/14 1400 AC IV Methylprednisolone 40 MG Q8 06/14 0915 DC 06/14 IV 0915 Midodrine 5 MG BID 06/11 2100 AC 06/14 PO 09 Mirtazapine 15 MG QPM 06/11 2100 AC 06/13 PO 2114 Moxifloxacin HCl 400 MG DAILY 06/12 0900 AC 06/14 PO 0914 Omeprazole 20 MG BID 06/11 2100 AC 06/14 PO 0914 Patient Medication 1 ED ONE ONE 06/13 1330 DC Teaching ED 06/13 1331 Prednisone 50 MG DAILY 06/13 0900 DC 06/13 PO 0917 Tamsulosin HCl 0.4 MG DAILY 06/11 1527 AC 06/14 PO 0913 Tizanidine HCl 4 MG QPM PRN 06/11 1530 AC PO Warfarin Sodium 5 MG COUMADIN 1700 ONE 06/14 1700 AC PO 06/14 1701 Warfarin Sodium 4 MG COUMADIN 1700 ONE 06/13 1700 DC 06/13 PO 06/13 1701 1616 Last 24 Hrs of Lab/Franco Results Last 24 Hrs of Labs/Mics: Laboratory Tests 06/14/18 0835: Anion Gap 10, Estimated GFR > 60, BUN/Creatinine Ratio 25.0, Troponin I 0.03, Mrn-N-[id number] Pept 2710 H 06/14/18 0558: PT 21.8 H, INR 1.99 H, CBC w Diff NO MAN DIFF REQ, RBC 3.62 L, MCV 89.6, MCH 30.1, MCHC 33.6, RDW 18.7 H, MPV 8.3, Gran % 84.8 H, Lymphocytes % 6.5 L, Monocytes % 8.7, Eosinophils % 0, Basophils % 0, Absolute Granulocytes 12.0 H, Absolute Lymphocytes 0.9 L, Absolute Monocytes 1.2 H, Absolute Eosinophils 0, Absolute Basophils 0 Assessment/Plan Assessment: 72 year old male with a PMH significant for COPD, afib, lung cancer sp right upper lobectomy 7 years ago with one year of chemo and radiation, vascular disease sp AAA repair also 7 years ago, afib with implanted loop recorder on Coumadin, that is BIBA for complaints of dyspnea and altered mental status. The patient has been apparently deteriorating over the past couple months, with mild cough with brownish/reddish sputum, on and off dizziness and blurriness of the eyes, and more recently, confusion and unsteadiness on his feet. The patient has also recently had uncontrolled bleeding. He is on Coumadin 4 mg daily and as per his , his pills have been mixed up recently and he may have taken more than the doses been prescribed. The patient was found in the field to be hypoxic and was placed on supplemental oxygen. He was given Solu-Medrol as well as the field. The patient sees a PCP and marketing traffic coordinator in [place], phone numbers in the HPI. Of note, patient is severely allergic to penicillin, has anaphylactic reaction. Vitals in the urgency room were temperature 101.2 which decreased to 99, heart rate 102 which decreased to 90s, respiratory rate 24, blood pressure 125/56, 91% oxygen saturation on 4 L nasal cannula which was tapered down to 2 L, 94% oxygen saturation. Labs showed a WBC count of 9.4 with bandemia, hemoglobin 11.4, no old labs available, creatinine 1.4, BNP 2370, negative troponin, INR 8.09 with repeat INR of 8.43 Chest x-ray showed evidence of remote right upper lobectomy, upper half right hemithorax completely opacified which signifies plural effusion or fibrotic changes or tumor recurrence. Additionally seen was left lower lobe opacity. EKG showed a rate of 100 with a QTC of 470 and flipped P waves significant for ectopic atrial beats. In the ED, patient had blood cultures 2 taken and got 1 dose of moxifloxacin. 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 Chest x-ray shows evidence of pneumonia as well as potential recurrence of cancer/pleural effusionfibrotic changes. The patient was septic with an elevated heart rate and temperature up to 102 on admission with a suspected source of infection being the lung. -Hemoptysis: Patient had 1 episode of hemoptysis with about a teaspoon of blood produced. He recently had brownish reddish sputum for the past few weeks. -Supratherapeutic INR: Patient usually takes 4 mg of warfarin every day was found to have INR over 8 on admission. -Altered mental status and falls: Patient recently had unsteadiness on his feet , confusion, poor memory, and a fall out of bed. -History of lung cancer: Right upper lobe lobectomy 7 years ago with chemotherapy and radiation for 1 year. The patient has not followed up with an oncologist for several years. -Dysphagia: Patient notices difficulty in swallowing pills, no issues with swallowing food or drink. -History of A. fib with implanted loop recorder: Patient sees a marketing traffic coordinator and EP deb in [place], has an appointment with them in about one month. The patient is on warfarin for anticoagulation and amiodarone. He also has implantable loop recorder. Plan -We transferred the patient to telemetry for continuous pulse ox monitoring as well as cardiac monitoring as he acutely decompensated today. -Chest x-ray done today after decompensation was largely unchanged from prior. Troponins negative EKGs no evidence of ACS, BNP unchanged. -Continue the patient on general medical floors for evaluation and treatment -Continue moxifloxacin 400 mg daily, needs 7 days total. -Solu-Medrol 40 mg every 8 tapered to 50mg prednisone yesterday. But today as patient has worsening respiratory status, we will put him back on 40 every 8 IV Solu-Medrol. -For the patient's acute kidney injury we gave 1 bag of normal saline to good effect. -Follow up echocardiogram today, cardiology following. -Patient's loop recorder was interrogated yesterday and showed previous positives and bouts of A. fib in early May, nothing recently. These were found while patient was on 200 mg twice a day of amiodarone. We have decreased the patient's amiodarone dose because of potential pulmonary toxicity that has occurred. We have transferred the patient to telemetry for continuous pulse ox and also monitoring of his heart rhythms now that he is on a lower dose of amiodarone and had acute respiratory worsening this morning. -We ordered CT head without contrast as patient has supratherapeutic INR and did fall earlier prior to admission. It showed no acute intracranial abnormality. -We ordered CT of the chest without contrast as patient has a history of lung cancer, recurrent hemoptysis, and question of recurrence of mass on his chest x- ray. CT chest showed dense fibrosis and volume loss in the superior segments of the right lower and middle lobes near the apex of the right hemithorax consistent with prior radiation. No superimposed lesions were found. Also found was patchy multifocal groundglass airspace opacities with small consolidative/solid components possibly due to multifocal pneumonia or multifocal adenocarcinoma in situ. There are finally areas of subtle interlobular septal thickening suggesting early fibrotic change also likely related to prior asbestos exposure. We will treat patient for the pneumonia and he will likely require a repeat CT scan after 4-6 weeks to evaluate for any cancer recurrence. -Follow up blood cultures and lower respiratory cultures for sensitivities and identification of gram-negative rods, urine Legionella and strep negative -Repeat CBC was stable despite patient's hemoptysis. Patient is currently back on his blood thinning medications Coumadin and aspirin as he has no longer had episodes of hemoptysis. -We gave vitamin K for admission INR of 8.43 and INR decreased to less than 2 yesterday. Patient was dosed his normal 4 mg warfarin dose and INR is still less than 2. Today we will give 5 mg of warfarin and follow-up INR tomorrow. -Patient was cleared with swallow evaluation but CT scan showed reflux of food into the upper esophagus. Speech and swallow suggested normal diet but taking pills with apple sauce. Patient will need to follow-up with ship pilot dispatcher when he is back in [place]. -Physical therapy consult as patient has had recent unsteadiness on his feet. -Patient will need follow up with his doctor as he was found to have low TSH and T3 indicative of amiodarone effects. He will need follow up LFTs and TFTs q3-6 months. -Additionally carotid ultrasound showed hemodynamically significant stenosis in left external carotid artery and he will need to follow up with his PCP for a vascular consult one he arrives back in [place]. Full Code Heart healthy diet DVT prophylaxis with Alps and coumadin Problem List: 1. Swallowing difficulty 2. History of lobectomy of lung 3. History of lung cancer 4. Pneumonia 5. Acute respiratory failure with hypoxia Pain Ratin Pain Location: na Pain Goal: Remain pain free Pain Plan: na Tomorrow's Labs & Rationales: inr
--- NOTE | 2018-06-14 09:35 | Event Note ---
Event Note Event Note: S: At sign out at 8 AM, I received word that the patient was requiring a much higher dose of oxygen overnight from the 2.5 L that he was usually receiving during his stay with us, to 5 L. Despite that, his oxygen saturations were at 88%. B: The patient is a 72-year-old male with past medical history significant for COPD, coronary artery disease status post placement of one stent, A. fib with implanted loop recorder on amiodarone and Coumadin, lung cancer status post right upper lobectomy 7 years ago with chemotherapy and radiation, vascular disease status post AAA repair, anxiety on 0.5 mg daily Klonopin. He is here for acute hypoxic respiratory failure secondary to pneumonia/COPD. He has had imaging done that is questionable for recurrence of his lung cancer that needs to be reevaluated when the pneumonia resolves. He has been on moxifloxacin 400 mg daily as he has severe allergy to penicillin. He also has been receiving IV steroids and tapered to oral yesterday. He is normally on amiodarone 200 mg twice a day which we decreased to 200 mg once a day secondary to suspected pulmonary toxicity. The patient is on Coumadin for his A. fib, INR found to be 8.43 on admission secondary to accidental ingestion of extra pills at home, vitamin K given with decrease in INR to under 2. His Coumadin 4 mg was dosed yesterday. He is being seen by pulmonary and nuclear fuel processing technician here. Dr. Gamble assessed the patient's loop recorder yesterday and found several episodes of bradycardia with positives on 05/12 with longest positive of 3 second duration , 1 episode of A. fib on 05/11 that lasted about 24 minutes, no events since around that time and no correlation between symptomatic episodes and dysrhythmic events. It had been expected that the patient would leave today or tomorrow. Patient was in [place] visiting his daughter from [place]. He had to cancel his return flight due to his admission here. A: Patient was seen and examined. He stated that since midnight, he felt "blood rushing to my head" and that he was going to pass out. He states that the last time he felt like this was before he had a myocardial infarction requiring stent placement. He denies any chest pain but does note pain in the upper shoulders near the neck worse on palpation. His vitals are stable, blood pressures are same in both arms, except for his oxygen saturation of 88% on 5 L. He continues to have a cough. Physical exam was positive only for continued rhonchi in the left lower lung and decreased breath sounds at the right upper lung secondary to his lobectomy. Wheezing was auscultated throughout that was worse since yesterday. Cardiac exam was normal. R: We ordered EKG and troponin to assess for potential OH. EKG was unchanged from prior. We also ordered a stat portable chest x-ray and put in orders to transfer the patient to telemetry for closer monitoring as patient was found to have breakthrough A. fib and positives previously on interrogation of his loop recorder. We also switched him from oral steroids back to 40 every 8 Solu- Medrol. We ordered an ABG and respiratory came for breathing treatment. We added on a BEP to his labs with BNP. Finally we ordered portable chest x-ray. The patient was supposed to get an echocardiogram while here and as it has not been done yet we asked them to come as soon as possible to do it today. His INR is 1.99 today and he will be dosed 5 mg of Coumadin.
[2018-06-14 09:58] LABS: WHITE BLOOD CELL COUNT 14.2 /CUMM (4.8-10.8)
--- NOTE | 2018-06-14 10:01 | RADIOLOGY REPORT ---
EXAMINATION: XR PORTABLE CHEST CLINICAL INFORMATION: Increased oxygen requirements. History of prior right upper lobectomy for lung cancer. COMPARISON: CT scan of the chest dated 06/11/2018. Chest x-ray dated 06/11/2018. TECHNIQUE: Portable AP semierect view of the chest was obtained. FINDINGS: The cardiomediastinal silhouette is borderline enlarged. Again seen is complete opacification of the right upper chest with retractile changes in the central right lower lung, which appears to be hyperinflated. Findings are consistent with patient's history of prior right upper lobectomy and fibrotic changes in the right middle lobe and superior segment of the right lower lobe as demonstrated on the CT scan. There are diffusely increased reticular opacities seen in the left lung, similar to minimally progressed compared to the previous exam. Calcified pleural plaques are seen along the left lateral chest wall. The left CP angle is not fully included in the [id number] of the exam. No significant pleural effusion is seen. Included bony structures are remarkable only for mild S-shaped cervicothoracic scoliosis and associated bilateral vertebral spondylosis. IMPRESSION: 1. Unchanged appearance of the chest compared to 06/11/2018 with findings consistent with patient's history of right upper lobectomy. Radiation induced fibrotic changes in the right middle lobe and superior segment of the right lower lobe are also noted with hyperinflation of the remaining right lower lobe. Findings are similar to the previous exam. 2. Diffuse increased reticular opacities in the left lung, similar to minimally progressed compared to the previous exam. Findings may be related to diffuse pneumonitis. Clinical correlation requested. 3. 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
--- NOTE | 2018-06-14 10:33 | PN- Pulmonary ---
Subjective HPI/Critical Care Issues: Overnight events noted. The patient was transferred from the general medical floor to telemetry 4 continuous pulse oximetry in the setting of oxygen desaturation. The patient was at 2.5 L noting that this was increased to 5 L nasal cannula and saturations were in the high 80s. He is now on high flow oxygen to maintain his saturations in the 90s. A chest x-ray was done that showed unchanged appearance of the chest compared to 06/11/2018 with findings consistent with a previous right upper lobectomy, and radiation-induced fibrotic changes in the right middle lobe and superior segment of the right lower lobe. Hyperinflation was noted as well. Diffuse increased reticular opacities in the left lung, thought to be related to pneumonitis, were demonstrated. An ABG was requested however was not yet done. The patient was placed back on IV Solu- Medrol 40 mg every 8 hours. His INR was 1.99 yesterday and he remains on Coumadin. Sputum is noted to be positive for gram-negative rods. The patient has increased shortness of breath, diaphoresis and wheezing. He feels he is withdrawing from opiates as well. Objective Vital Signs & I&O Last 24 Hrs of Vitals and I&O: Vital Signs Date Time Temp Pulse Resp B/P B/P Pulse O2 O2 Flow FiO2 Mean Ox Delivery Rate 06/14 0953 98.6 93 30 108/66 96 06/14 0913 99 126/64 06/14 0913 99 16/64 06/14 0812 98.9 92 22 122/60 88 Nasal 5.0L Cannula 06/14 0807 93 Nasal 40% Cannula 06/14 0800 85 Nasal 5.0L Cannula 06/14 0712 98.9 88 124/62 06/14 0000 91 Nasal 3.0L Cannula 06/13 2200 97 140/78 91 06/13 2155 97.9 98 20 160/62 91 Nasal 2.0L Cannula 06/13 1750 92 Nasal 2.0L Cannula 06/13 1600 91 Nasal 2.0L Cannula 06/13 1538 19 Intake & Output 06/14 1600 06/14 0800 06/14 0000 Intake Total Output Total Balance Number 1 Bowel Movements Exam General Appearance: alert, awake, anxious Head: atraumatic, normal appearance Neck: supple Respiratory: decreased breath sounds, crackles, rhonchi, wheezing Abdomen: normal bowel sounds, soft, non-tender Extremities: no edema Skin: intact, normal color, warm/dry Results Last 24 Hrs of Lab Results: Laboratory Tests 06/14/18 1400: Troponin I Pending, D-Dimer High Sensitivty 267 H 06/14/18 1230: pH 7.48 H, pCO2 35, pO2 75 L, HCO3 26, ABG O2 Sat (Measured) 95.0 L, Carboxyhemoglobin 0.3 L, O2 Concentration % 40%, O2 Delivery Method HFNC, Phlebotomy Draw Site LEFT RADIAL 06/14/18 0835: Anion Gap 10, Estimated GFR > 60, BUN/Creatinine Ratio 25.0, Troponin I 0.03, Qog-Y-Zwfokrhuhur Pept 2710 H 06/14/18 0558: PT 21.8 H, INR 1.99 H, CBC w Diff NO MAN DIFF REQ, RBC 3.62 L, MCV 89.6, MCH 30.1, MCHC 33.6, RDW 18.7 H, MPV 8.3, Gran % 84.8 H, Lymphocytes % 6.5 L, Monocytes % 8.7, Eosinophils % 0, Basophils % 0, Absolute Granulocytes 12.0 H, Absolute Lymphocytes 0.9 L, Absolute Monocytes 1.2 H, Absolute Eosinophils 0, Absolute Basophils 0 Impression/Plan Impression/Plan Impression/Plan: 1. Bilateral pulmonary infiltrates with multilobar pneumonia, chemical versus bacterial. Recurrent aspiration may be contributing. Sputum cultures positive for gram-negative rods. 2. Overnight oxygen desaturation which could be related to bronchospasm versus worsening of pneumonia in the setting of severe chronic lung disease. 3. History of COPD with ongoing smoking. 4. Hypoxemic respiratory failure. 5. GERD with dysphagia, high risk for aspiration. 6. Paroxysmal atrial fibrillation, on Coumadin. 7. History of elevated BNP, high risk for CHF. 8. Gait imbalance and recent memory loss which needs ongoing follow-up. 9. Rule out amiodarone toxicity. Recommendations: * Check a non-contrast CT of the chest today. * Add oxycodone 5 mg q am (first dose now) and 5 mg qhs PRN. * Monitor for withdrawl symptoms. * Follow-up culture data. * Recommend starting ceftazidime for gram-negative pneumonia. * Taper oxygen down for saturations greater than 92%. * Attempt to obtain ABG. * Continue neb/total respiratory care. Nebs q 4 hours around the clock. * Continue Solu-Medrol 40 mg IV every 8 hours. * Follow-up cardiology recommendations. * Continue Coumadin for therapeutic INR. * Continue all supportive care. * No plans for discharge today. * Discussed with patient's family at the bedside.
--- NOTE | 2018-06-14 14:52 | PN- Cardiology ---
Subjective Subjective: The patient was transferred to [address] [place] [address] for closer monitoring of his respiratory and cardiac status. Since being on telemetry, the patient has had ventricular ectopy but there has been no evidence of atrial fibrillation. Objective Vital Signs and I&Os Troponins have been negativeVital Signs Date Time Temp Pulse Resp B/P B/P Pulse O2 O2 Flow FiO2 Mean Ox Delivery Rate 06/14 0953 98.6 93 30 108/66 96 06/14 09 99 126/64 06/14 09 99 16/64 06/14 08 98.9 92 22 122/60 88 Nasal 5.0L Cannula 06/14 0807 93 Nasal 40% Cannula 06/14 0800 85 Nasal 5.0L Cannula 06/14 07 98.9 88 124/62 06/14 0000 91 Nasal 3.0L Cannula 06/13 2200 97 140/78 91 06/13 2155 97.9 98 20 160/62 91 Nasal 2.0L Cannula 06/13 1750 92 Nasal 2.0L Cannula 06/13 1600 91 Nasal 2.0L Cannula 06/13 1538 19 Intake & Output 06/14 1600 06/14 0800 06/14 0000 06/13 1600 06/13 0800 06/13 0000 Intake Total 730 120 510 Output Total 500 600 500 Balance 230 -480 10 Intake, IV 10 30 Intake, Oral 720 120 480 Number 1 1 3 Bowel Movements Output, Urine 500 600 500 Current Medications: Current Medications Sig/Mark Start time Last Medication Dose Route Stop Time Status Admin Acetaminophen 650 MG ONCE ONE 06/14 1030 DC 06/14 PO 06/14 1031 1030 Albuterol Sulfate 3 ML EVERY 4 HRS/AWAKE 06/12 2000 AC 06/14 INH 1222 Albuterol Sulfate 2 PUF Q4-6 PRN PRN 06/11 1530 AC INH Amiodarone HCl 200 MG DAILY 06/12 0900 AC 06/14 PO 912 Aspirin 81 MG DAILY 06/15 09 AC PO Cholecalciferol 1,000 IU DAILY 06/12 1123 AC 06/14 PO 912 Clonazepam 0.5 MG DAILY 06/11 1525 AC 06/14 PO 06/18 1524 0912 Cyanocobalamin 1,000 MCG DAILY 06/12 1456 AC 06/14 PO 09 Gabapentin 600 MG BID 06/11 2100 AC 06/14 PO 0912 Guaifenesin 600 MG Q12 06/13 2100 AC 06/14 PO 0912 Lactobacillus 1 CAP DAILY 06/13 1215 AC 06/14 Acidophilus PO 0912 Methylprednisolone 40 MG Q8 06/14 1400 AC IV Methylprednisolone 40 MG Q8 06/14 0915 DC 06/14 IV 0915 Midodrine 5 MG BID 06/11 2100 AC 06/14 PO 0913 Mirtazapine 15 MG QPM 06/11 2100 AC 06/13 PO 2114 Moxifloxacin HCl 400 MG DAILY 06/12 0900 AC 06/14 PO 0914 Omeprazole 20 MG BID 06/11 2100 AC 06/14 PO 0914 Oxycodone/ 1 TAB 1700 PRN 06/14 1700 AC Acetaminophen PO Oxycodone/ 1 TAB DAILY 06/14 1245 AC 06/14 Acetaminophen PO 1303 Prednisone 50 MG DAILY 06/13 0900 DC 06/13 PO 0917 Tamsulosin HCl 0.4 MG DAILY 06/11 1527 AC 06/14 PO 0913 Tizanidine HCl 4 MG QPM PRN 06/11 1530 AC PO Warfarin Sodium 5 MG COUMADIN 1700 ONE 06/14 1700 AC PO 06/14 1701 Warfarin Sodium 4 MG COUMADIN 1700 ONE 06/13 1700 DC 06/13 PO 06/13 1701 1616 Results Last 48 Hrs of Labs/Mics: Laboratory Tests 06/14/18 1400: Troponin I 0.02, D-Dimer High Sensitivty 267 H 06/14/18 1230: pH 7.48 H, pCO2 35, pO2 75 L, HCO3 26, ABG O2 Sat (Measured) 95.0 L, Carboxyhemoglobin 0.3 L, O2 Concentration % 40%, O2 Delivery Method HFNC, Phlebotomy Draw Site LEFT RADIAL 06/14/18 0835: Anion Gap 10, Estimated GFR > 60, BUN/Creatinine Ratio 25.0, Troponin I 0.03, [id number]-C-[id number] Pept 2710 H 06/14/18 0558: PT 21.8 H, INR 1.99 H, CBC w Diff NO MAN DIFF REQ, RBC 3.62 L, MCV 89.6, MCH 30.1, MCHC 33.6, RDW 18.7 H, MPV 8.3, Gran % 84.8 H, Lymphocytes % 6.5 L, Monocytes % 8.7, Eosinophils % 0, Basophils % 0, Absolute Granulocytes 12.0 H, Absolute Lymphocytes 0.9 L, Absolute Monocytes 1.2 H, Absolute Eosinophils 0, Absolute Basophils 0 06/13/18 0657: PT 19.7 H, INR 1.80 H, CBC w Diff NO MAN DIFF REQ, RBC 3.67 L, MCV 89.0, MCH 29.6, MCHC 33.3, RDW 18.5 H, MPV 8.3, Gran % 92.6 H, Lymphocytes % 2.7 L, Monocytes % 4.7, Eosinophils % 0, Basophils % 0, Absolute Granulocytes 15.5 H, Absolute Lymphocytes 0.4 L, Absolute Monocytes 0.8 H, Absolute Eosinophils 0, Absolute Basophils 0 Assessment/Plan Assessment/Plan Assessment: 1. Bilateral pulmonary infiltrates with multilobar pneumonia, chemical versus bacterial. Recurrent aspiration may be contributing. Sputum cultures positive for gram-negative rods. 2. Overnight oxygen desaturation which could be related to bronchospasm versus worsening of pneumonia in the setting of severe chronic lung disease. 3. History of COPD; history of lung cancer, status post right upper lobe lobectomy in 2012 4. History of coronary artery disease, status post prior stenting 5. GERD with dysphagia, high risk for aspiration. 6. Paroxysmal atrial fibrillation, on Coumadin. Ventricular ectopy noted 7. History of elevated BNP, high risk for CHF. 8. Gait imbalance and recent memory loss which needs ongoing follow-up. 9. Rule out amiodarone toxicity. 10. History of hyperlipidemia 11. History of abdominal aortic aneurysm status post repair Recommendations: -For now I would continue as per the medical/pulmonary team -Serial troponins noted -Echocardiogram pending -Continue current medication for now -Further discussions with pulmonary about the possibility of amiodarone lung toxicity. Continue telemetry? Yes
--- NOTE | 2018-06-14 16:11 | CT SCAN REPORT ---
EXAMINATION: CT ANGIOGRAM OF THE CHEST WITH AND WITHOUT CONTRAST (CT PULMONARY ANGIOGRAM FOR PE) CLINICAL INFORMATION: Acute dyspnea. History of lung cancer. COMPARISON: Same day chest x-ray, CT chest 06/11/2018 TECHNIQUE: Prior to contrast administration, noncontrast localization images were obtained. Subsequently, multidetector volumetric imaging was performed from the thoracic inlet to below the diaphragms following the administration of 95 mL Optiray 320 intravenous contrast. No contrast reaction reported. Sagittal, coronal, and MIP oblique sagittal reformatted images were obtained on the CT workstation, uploaded to PACS, and reviewed. Total exam dose-length product 603 mGy-cm. FINDINGS: QUALITY OF STUDY/CONTRAST BOLUS: Satisfactory PULMONARY ARTERIES: No central or segmental pulmonary emboli. THORACIC AORTA: The ascending thoracic aorta is ectatic measuring up to 3.5 cm in diameter. LUNG: There is significant right-sided volume loss related to prior right upper lobectomy. The right lower lobe is clear. There is soft tissue at the level of the right lung apex. This area of soft tissue which demonstrates heterogeneous enhancement compared to the noncontrast CT from 3 days prior measures 6.1 x 4.4 cm. Calcification along the posterior wall of the right pleural surface is noted. Fibrotic changes at the level of the right hilum likely related to prior radiation are redemonstrated and stable compared to the prior CT. There are diffuse groundglass changes throughout the left lung which appear increased in distribution compared to the previous examination. There is some septal thickening at the left lung base as well. No left pleural effusion. Numerous calcified pleural plaques are demonstrated. PLEURA: Calcified pleural plaques. MEDIASTINUM: Heart size is within normal range. No significant pericardial effusion. No pathologically enlarged mass and lymph nodes. No evidence of septal bowing or right heart strain. CHEST WALL/AXILLA: No axillary or internal mammary lymphadenopathy. OSSEOUS STRUCTURES: Chronic T6 vertebral body fracture redemonstrated. Multilevel degenerative changes throughout the visualized thoracic spine. UPPER ABDOMEN: Unremarkable. No reflux of contrast into the hepatic veins to suggest elevated right heart pressures. IMPRESSION: 1. No CT evidence for acute pulmonary embolism. 2. Status post right upper lobectomy. Enhancement of the soft tissue at the level of the right lung apex. While this may represent granulation tissue in the postoperative setting of possible of locally recurrent malignancy should be additionally considered. 3. Extensive airspace disease throughout the left lung, worsened compared to the CT from 3 days prior. Differential diagnostic considerations would include infectious etiologies versus background edema. Multifocal adenocarcinoma can also have this appearance. 4. 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 5. 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 VTE: negative
[2018-06-15 07:40] VITALS: BP 124/76
[2018-06-15 08:21] LABS: PT 26.7 SEC (9.4-12.5)
--- NOTE | 2018-06-15 10:05 | PN- Pulmonary ---
Subjective HPI/Critical Care Issues: The patient reports feeling improved overall. He is less short of breath. He denies any new symptoms. He has some cough but not significant for him. He remains on high flow at 45%. He is afebrile and his vital signs are otherwise stable. Objective Current Medications: Current Medications Sig/Mark Start time Last Medication Dose Route Stop Time Status Admin Acetaminophen 650 MG ONCE ONE 06/14 1030 DC 06/14 PO 06/14 1031 1030 Albuterol Sulfate 3 ML EVERY 4 HRS/AWAKE 06/14 1600 AC 06/15 INH 0814 Albuterol Sulfate 3 ML EVERY 4 HRS/AWAKE 06/12 2000 DC 06/14 INH 1222 Albuterol Sulfate 2 PUF Q4-6 PRN PRN 06/11 1530 AC INH Amiodarone HCl 200 MG DAILY 06/12 0900 AC 06/14 PO 09 Aspirin 81 MG DAILY 06/15 0900 AC PO Cholecalciferol 1,000 IU DAILY 06/12 1123 AC 06/14 PO 09 Clonazepam 0.5 MG DAILY 06/11 1525 AC 06/14 PO 06/18 1524 0912 Cyanocobalamin 1,000 MCG DAILY 06/12 1456 AC 06/14 PO 0912 Gabapentin 600 MG BID 06/11 2100 AC 06/14 PO 2052 Guaifenesin 600 MG Q12 06/13 2100 AC 06/14 PO 2052 Lactobacillus 1 CAP DAILY 06/13 1215 AC 06/14 Acidophilus PO 09 Methylprednisolone 40 MG Q8 06/14 1400 AC 06/15 IV 0635 Midodrine 5 MG BID 06/11 2100 AC 06/14 PO 2052 Mirtazapine 15 MG QPM 06/11 2100 AC 06/14 PO 2052 Moxifloxacin HCl 400 MG DAILY 06/12 0900 AC 06/14 PO 09 Omeprazole 20 MG BID 06/11 2100 AC 06/14 PO 205 Oxycodone/ 1 TAB 1700 PRN 06/14 1700 AC 06/14 Acetaminophen PO 1904 Oxycodone/ 1 TAB DAILY 06/14 1245 AC 06/15 Acetaminophen PO 0639 Tamsulosin HCl 0.4 MG DAILY 06/11 1527 AC 06/14 PO 0913 Tizanidine HCl 4 MG QPM PRN 06/11 1530 AC PO Warfarin Sodium 5 MG COUMADIN 1700 ONE 06/14 1700 DC 06/14 PO 06/14 1701 1713 Vital Signs & I&O Last 24 Hrs of Vitals and I&O: Vital Signs Date Time Temp Pulse Resp B/P B/P Pulse O2 O2 Flow FiO2 Mean Ox Delivery Rate 06/15 0740 98.5 84 20 124/76 91 Non ReBreather 06/15 0201 93 Nasal 45% Cannula 06/15 0000 Nasal 45% Cannula 06/14 2248 98.8 86 20 116/74 91 Non ReBreather 06/14 2210 98.8 86 20 116/74 06/14 2033 90 Nasal 45% Cannula 06/14 1926 92 Nasal 8L Cannula 06/14 1902 98.7 90 25 136/68 91 06/14 1845 91 Nasal 40% Cannula 06/14 1637 90 Nasal 8L Cannula 06/14 1519 98.7 99 24 108/64 92 Intake & Output 06/15 1600 06/15 0800 06/15 0000 Intake Total 10 200 Output Total 600 450 Balance -590 -250 Intake, IV 10 Intake, Oral 200 Output, Urine 600 450 Patient 208 lb Weight Weight Bed scale Measurement Method Exam General Appearance: alert, awake, anxious Head: atraumatic, normal appearance Neck: supple Respiratory: decreased breath sounds, crackles, rhonchi, wheezing Abdomen: normal bowel sounds, soft, non-tender Extremities: no edema Skin: intact, normal color, warm/dry Diagnostic Data CT Scan Findings: 1. No CT evidence for acute pulmonary embolism. 2. Status post right upper lobectomy. Enhancement of the soft tissue at the level of the right lung apex. While this may represent granulation tissue in the postoperative setting of possible of locally recurrent malignancy should be additionally considered. 3. Extensive airspace disease throughout the left lung, worsened compared to the CT from 3 days prior. Differential diagnostic considerations would include infectious etiologies versus background edema. Multifocal adenocarcinoma can also have this appearance. 4. 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 5. 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 Impression/Plan Impression/Plan Impression/Plan: 1. Bilateral pulmonary infiltrates with multilobar pneumonia, chemical versus bacterial. Recurrent aspiration may be contributing. Sputum cultures positive for gram-negative rods. 2. Hypoxemic respiratory failure which could be related to significant airspace disease is seen on CT scan. BNP is elevated and fluid overload cannot be excluded. 3. History of COPD with ongoing smoking. 4. Hypoxemic respiratory failure. 5. GERD with dysphagia, high risk for aspiration. 6. Paroxysmal atrial fibrillation, on Coumadin. 7. Rule out amiodarone toxicity. 8. Gait imbalance and recent memory loss which needs ongoing follow-up. 9. Opiate dependence. Recommendations: * Recommend Lasix 20 mg IV 1. * Strict I's and O's. * Maintain negative fluid balance. * Follow-up echo results and cardiology input. * Low-dose oxycodone for pain and to avoid withdrawal. * Follow-up culture data. * Continue ceftazidime for gram-negative pneumonia. * Taper oxygen down for saturations greater than 92%. * Continue neb/total respiratory care. Nebs q 4 hours around the clock. * Continue Solu-Medrol 40 mg IV every 8 hours. * Follow-up cardiology recommendations. * Continue Coumadin for therapeutic INR. * Continue all supportive care. * Discussed with patient's family at the bedside.
--- NOTE | 2018-06-15 11:47 | Cons- Infect Disease ---
General Information and HPI Consulting Request Date of Consult: 06/15/18 Requested By: Regino FRANKLIN,Letitia Rivera Reason for Consult: Positive sputum culture for 2 gram-negative rods Source of Information: patient, family History of Present Illness: This is a 72-year-old man, [id number] smoker, with a history of COPD,, not on oxygen or steroids, lung cancer, status post right upper lobectomy with chemotherapy and radiation 7 years prior to admission, coronary artery disease, status post stenting, valvular heart disease, status post open AAA repair, paroxysmal atrial fibrillation, on Amiodarone and Coumadin, status post Linq recorder, currently visiting from [place], admitted on June 11 after a fall at home from which he was unable to get up, found to be incontinent of urine and short of breath, with a 1 month history of a cough, productive of dark sputum and, more recently, hemoptysis and several days of increasing weakness, shortness of breath, dizziness and confusion. On admission he was febrile to 101.2, with an O2 sat of 81% on room air. Laboratory data revealed a white blood cell count of 9000, with 79 segs and 6 bands, BUN/creatinine 24 and 1.4, with normal liver enzymes, BNP 2370, INR 8.06. Urinalysis 3-5 RBC/1-3 WBCs. Chest x-ray revealed volume loss in the right hemithorax with complete opacification of the upper half of the right hemithorax and a patchy, hazy opacity in the left lower lung. CT of the head was negative for any acute process. CT of the chest revealed dense fibrosis and volume loss in the superior segments of the right lower and middle lobes, patchy multifocal groundglass airspace opacities and areas of subtle interlobular septal thickening suggesting early fibrotic change. He was begun on Solumedrol and Moxifloxacin. He initially improved and was changed to p.o. prednisone on June 13, but on June 14 he developed increasing shortness of breath with chest pain, requiring high flow oxygen and Solumedrol. A CTA of the chest was done, which was negative for pulmonary embolism but revealed extensive airspace disease throughout the left lung, worsened compared to the previous CT scan. He has been afebrile since admission (on steroids) and currently feels improved from yesterday. Allergies/Medications Allergies: Coded Allergies: Penicillins (Severe, SWELLING THROAT 06/11/18) Home Med List: Albuterol Sulfate (Ventolin Hfa) 90 MCG HFA.AER.AD 2 PUF INH Q4-6 PRN PRN SHORTNESS OF BREATH (Reported) Albuterol Sulfate 2.5 MG/3 ML (0.083 %) VIAL.NEB 1 Vial INH/TIMOTHY Q4P PRN SHORTNESS OF BREATH (Reported) Amiodarone HCl 200 MG TABLET 1 TAB PO DAILY AFIB Aspirin (Aspirin*) 81 MG TAB.CHEW 1 TAB PO DAILY HEART HEALTH (Reported) Cholecalciferol (Vitamin D3) 1,000 UNIT TABLET 1,000 IU PO DAILY LOW VITAMIN D Clonazepam 0.5 MG TABLET 1 TAB PO DAILY ANXIETY (Reported) Cyanocobalamin (Vitamin B-12) 1,000 MCG TABLET 2 TAB PO DAILY low vitamin b12 level Fluticasone/Salmeterol (Advair 250-50 Diskus) 250 MCG-50 MCG/DOSE BLST.W.DEV 1 PUF INH BID BREATHING PROBLEMS (Reported) Gabapentin 600 MG TABLET 1 TAB PO TID UNKNOWN (Reported) Meloxicam 15 MG TABLET 1 TAB PO DAILY PRN PAIN (Reported) Midodrine HCl 5 MG TABLET 1 TAB PO BID BP (Reported) Mirtazapine 15 MG TABLET 1 TAB PO QPM SLEEP (Reported) Moxifloxacin HCl 400 MG TABLET 400 MG PO DAILY pneumonia Omeprazole 20 MG CAPSULE.DR 1 CAP PO BID GI (Reported) Oxycodone HCl/Acetaminophen (Oxycodone-Acetaminophen 10-325) 10 MG-325 MG TABLET 1 TAB PO BIDP PRN PAIN (Reported) Prednisone 10 MG TABLET 1 TAB PO SEE INSTRUCT COPD TAKE 4 PER DAY FOR 2 DAYS TAKE 3/DAY 2 DAYS TAKE 2/DAY 2 DAYS TAKE 1/DAY 2 DAYS Tamsulosin HCl 0.4 MG CAP.ER.24H 1 CAP PO DAILY BPH (Reported) Tizanidine HCl 4 MG TABLET 1 TAB PO QPM PRN SPASMS (Reported) Warfarin Sodium (Coumadin) 4 MG TABLET 1 TAB PO 1700 BLOOD THINNER (Reported) Past History Travel History Traveled to [place] past 21 day No Medical History Blood Transfusion Hx: No Neurological: Alzheimer's disease (Shingles), Shingles EENT: NONE Cardiovascular: aortic aneurysm, AFIB, CAD (STENT), hypertension, hyperlipidemia Respiratory: COPD, PRIOR LUNG CA Gastrointestinal: INGUINAL HERNIA Hepatic: NONE Renal: NONE Musculoskeletal: NONE Psychiatric: anxiety Endocrine: NONE Blood Disorders: NONE Cancer(s): lung cancer History of MRSA: No History of VRE: No History of CDIFF: No Isolation History: Standard Surgical History Surgical History: AAA REPAIR, RIGHT 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 Home Services at Home: None Smoking Status: Current Some Day Smoker ETOH Use: denies use Illicit Drug Use: denies illicit drug use Functional Ability ADLs Independent: dressing, eating, toileting, bathing. Review of Systems Review of Systems All Other Systems: Reviewed and Negative Exam & Diagnostic Data Last 24 Hrs of Vital Signs/I&O Vital Signs Date Time Temp Pulse Resp B/P B/P Pulse O2 O2 Flow FiO2 Mean Ox Delivery Rate 06/15 1018 84 124/76 06/15 1016 84 124/76 06/15 0814 92 Nasal 45% Cannula 06/15 0740 98.5 84 20 124/76 91 Non ReBreather 06/15 0201 93 Nasal 45% Cannula 06/15 0000 Nasal 45% Cannula 06/14 2248 98.8 86 20 116/74 91 Non ReBreather 06/14 2210 98.8 86 20 116/74 06/14 2033 90 Nasal 45% Cannula 06/14 1926 92 Nasal 8L Cannula 06/14 1902 98.7 90 25 136/68 91 /14 1845 91 Nasal 40% Cannula / 1637 90 Nasal 8L Cannula 06/14 1519 98.7 99 24 108/64 92 Intake & Output 06/15 1600 06/15 0800 06/15 0000 Intake Total 10 200 Output Total 600 450 Balance -590 -250 Intake, IV 10 Intake, Oral 200 Output, Urine 600 450 Patient 208 lb Weight Weight Bed scale Measurement Method Physical Exam Other Physical Findings: He is awake and alert, on high flow oxygen but appearing in no acute distress. He is afebrile on steroids. Skin reveals no rash. HEENT exam is negative. Neck is supple with no adenopathy. Lungs scattered rhonchi and wheezes with crackles at the left base. heart regular rhythm with no murmur. Abdomen is soft, nontender with positive bowel sounds. Back no CVA tenderness. Extremities no cyanosis, clubbing or edema. Neuro is without focality. Last 24 Hours of Lab Results: Laboratory Tests 06/15 06/14 06/14 06/14 0625 1940 1400 1230 Blood Gas pH (7.35 - 7.45 PH) 7.48 H pCO2 (35 - 45 TORR) 35 pO2 (80 - 100 TORR) 75 L HCO3 (21 - 28 MEQ/L) 26 ABG O2 Sat (Measured) (>96.0 %) 95.0 L Carboxyhemoglobin (1.5 - 5.0 %) 0.3 L O2 Concentration % 40% O2 Delivery Method [facility] Chemistry Troponin I (<0.11 ng/ml) 0.02 0.02 Coagulation PT (9.4 - 12.5 SEC) 26.7 H INR (0.90 - 1.17) 2.43 H D-Dimer High Sensitivty (0 - 243 ng/ml) 267 H Miscellaneous Phlebotomy Draw Site LEFT RADIAL Last 24 Hours of Franco Results: Blood cultures x 2 June 11 negative Sputum culture June 11 positive for Enterobacter cloacae sensitive to Ceftriaxone, Ceftazidime, Ciprofloxacin, Gentamicin and Bactrim and Stenotrophomonas maltophilia sensitive to Levaquin and Bactrim Diagnostic Data Recent Imaging Findings: Chest x-ray revealed volume loss in the right hemithorax with complete opacification of the upper half of the right hemithorax and a patchy, hazy opacity in the left lower lung. CT of the head was negative for any acute process. CT of the chest revealed dense fibrosis and volume loss in the superior segments of the right lower and middle lobes, patchy multifocal groundglass airspace opacities and areas of subtle interlobular septal thickening suggesting early fibrotic change. Modified barium swallow June 12 negative Carotid Dopplers June 12 revealed a proximal right ICA stenosis, no hemodynamically significant stenosis of the left ICA and hemodynamically significant stenosis of the left ECA CT of the chest June 14 no pulmonary embolism; extensive airspace disease throughout the left lung, worse compared to the previous CT 3 days earlier Assessment/Plan Assessment/Plan Impression: This is a 72-year-old man with a history of COPD and lung cancer, status post right upper lobectomy with chemotherapy and radiation 7 years prior to admission admitted on June 11 after a fall at home with a 1 month history of a cough, productive of dark sputum and, more recently, hemoptysis, and several days of increasing weakness, shortness of breath, dizziness and confusion, found to be febrile and hypoxic with a normal white blood cell count and a chest x-ray and CT scan of the chest revealing patchy multifocal groundglass airspace opacities, with his sputum culture positive for Enterobacter and Stenotrophomonas. His clinical picture is consistent with pneumonia, with extensive airspace disease throughout the left lung, which has progressed on the most recent CT scan. Concern has been raised for aspiration, though his modified barium swallow is negative. The sputum culture is positive for Enterobacter and Stenotrophomonas and, though these are typically nosocomial pathogens, suspect that they are most likely the etiologic agents of his pneumonia. Of note the Stenotrophomonas is not tested to Moxifloxacin; therefore other quinolones, in particular, Levofloxacin, which should also cover the Enterobacter, may be preferable. His I's and O's are not suggestive of fluid overload and his recent CTA of the chest was negative for pulmonary embolism, making noninfectious etiologies for his hypoxia less likely. Suggestion: 1. Further management with regard to steroids per Pulmonary 2. Discontinue Moxifloxacin 3. Begin Levaquin 500 mg p.o. every 24 hours Consult Acknowledgment - Thank you for your consult request.
[2018-06-15 15:10] VITALS: BP 108/60
--- NOTE | 2018-06-15 15:18 | PN- Cardiology ---
Subjective Subjective: Patient is doing somewhat better today but still requires high flow oxygen. Follow-up chest CT pending Objective Vital Signs and I&Os Vital Signs Date Time Temp Pulse Resp B/P B/P Pulse O2 O2 Flow FiO2 Mean Ox Delivery Rate 06/15 1510 97.5 76 18 108/60 89 Nasal Cannula 06/15 1018 84 124/76 06/15 1016 84 124/76 06/15 0814 92 Nasal 45% Cannula 06/15 0740 98.5 84 20 124/76 91 Non ReBreather 06/15 0201 93 Nasal 45% Cannula 06/15 0000 Nasal 45% Cannula 06/14 2248 98.8 86 20 116/74 91 Non ReBreather 06/14 2210 98.8 86 20 116/74 06/14 2033 90 Nasal 45% Cannula 06/14 1926 92 Nasal 8L Cannula 06/14 1902 98.7 90 25 136/68 91 06/14 1845 91 Nasal 40% Cannula 06/14 1637 90 Nasal 8L Cannula 06/14 1519 98.7 99 24 108/64 92 Intake & Output 06/15 1600 06/15 0800 06/15 0000 06/14 1600 06/14 0800 06/14 0000 Intake Total 10 200 600 Output Total 600 450 250 Balance -590 -250 350 Intake, IV 10 Intake, Oral 200 600 Number 1 1 Bowel Movements Output, Urine 600 450 250 Patient 208 lb Weight Weight Bed scale Measurement Method Current Medications: Current Medications Sig/Mark Start time Last Medication Dose Route Stop Time Status Admin Albuterol Sulfate 3 ML EVERY 4 HRS/AWAKE 06/14 1600 AC 06/15 INH 1206 Albuterol Sulfate 3 ML EVERY 4 HRS/AWAKE 06/12 2000 DC 06/14 INH 1222 Albuterol Sulfate 2 PUF Q4-6 PRN PRN 06/11 1530 AC INH Amiodarone HCl 200 MG DAILY 06/12 09 AC 06/15 PO 1016 Aspirin 81 MG DAILY 06/15 0900 AC 06/15 PO 1016 Cholecalciferol 1,000 IU DAILY 06/12 1123 AC 06/15 PO 1020 Clonazepam 0.5 MG DAILY 06/11 1525 AC 06/15 PO 06/18 1524 1021 Cyanocobalamin 1,000 MCG DAILY 06/12 1456 AC 06/15 PO 1020 Furosemide 20 MG ONCE ONE 06/15 1515 DC IV 06/15 1516 Gabapentin 600 MG BID 06/11 2100 AC 06/15 PO 1018 Guaifenesin 600 MG Q12 06/13 2100 AC 06/15 PO 1017 Lactobacillus 1 CAP DAILY 06/13 1215 AC 06/15 Acidophilus PO 1019 Levofloxacin 500 MG DAILY 06/15 1015 AC 06/15 PO 1112 Methylprednisolone 40 MG Q8 06/14 1400 AC 06/15 IV 1423 Midodrine 5 MG BID 06/11 2100 AC 06/15 PO 1018 Mirtazapine 15 MG QPM 06/11 2100 AC 06/14 PO 2053 Moxifloxacin HCl 400 MG DAILY 06/12 0900 DC 06/14 PO 0914 Omeprazole 20 MG BID 06/11 2100 AC 06/15 PO 1018 Oxycodone/ 1 TAB 1700 PRN 06/14 1700 AC 06/14 Acetaminophen PO 1904 Oxycodone/ 1 TAB DAILY 06/14 1245 AC 06/15 Acetaminophen PO 0639 Tamsulosin HCl 0.4 MG DAILY 06/11 1527 AC 06/15 PO 1018 Tizanidine HCl 4 MG QPM PRN 06/11 1530 AC PO Warfarin Sodium 5 MG COUMADIN 1700 ONE 06/15 1700 UNVr PO 06/15 1701 Warfarin Sodium 5 MG COUMADIN 1700 ONE 06/14 1700 DC 06/14 PO 06/14 1701 1713 Results Last 48 Hrs of Labs/Mics: Laboratory Tests 06/15/18 0625: PT 26.7 H, INR 2.43 H 06/14/18 1940: Troponin I 0.02 06/14/18 1400: Troponin I 0.02, D-Dimer High Sensitivty 267 H 06/14/18 1230: pH 7.48 H, pCO2 35, pO2 75 L, HCO3 26, ABG O2 Sat (Measured) 95.0 L, Carboxyhemoglobin 0.3 L, O2 Concentration % 40%, O2 Delivery Method HFNC, Phlebotomy Draw Site LEFT RADIAL 06/14/18 0835: Anion Gap 10, Estimated GFR > 60, BUN/Creatinine Ratio 25.0, Troponin I 0.03, Zox-U-Siyersfesgp Pept 2710 H 06/14/18 0558: PT 21.8 H, INR 1.99 H, CBC w Diff NO MAN DIFF REQ, RBC 3.62 L, MCV 89.6, MCH 30.1, MCHC 33.6, RDW 18.7 H, MPV 8.3, Gran % 84.8 H, Lymphocytes % 6.5 L, Monocytes % 8.7, Eosinophils % 0, Basophils % 0, Absolute Granulocytes 12.0 H, Absolute Lymphocytes 0.9 L, Absolute Monocytes 1.2 H, Absolute Eosinophils 0, Absolute Basophils 0 Assessment/Plan Assessment/Plan Assessment: 1. Bilateral pulmonary infiltrates with multilobar pneumonia, chemical versus bacterial. Recurrent aspiration may be contributing. Sputum cultures positive for gram-negative rods. 2. Overnight oxygen desaturation which could be related to bronchospasm versus worsening of pneumonia in the setting of severe chronic lung disease. 3. History of COPD; history of lung cancer, status post right upper lobe lobectomy in 2012 4. History of coronary artery disease, status post prior stenting 5. GERD with dysphagia, high risk for aspiration. 6. Paroxysmal atrial fibrillation, on Coumadin. Ventricular ectopy noted 7. History of elevated BNP, high risk for CHF. 8. Gait imbalance and recent memory loss which needs ongoing follow-up. 9. Rule out amiodarone toxicity. 10. History of hyperlipidemia 11. History of abdominal aortic aneurysm status post repair Recommendations: -For now I would continue as per the medical/pulmonary team -Serial troponins noted -Echocardiogram pending -Continue current medication for now -Further discussions with pulmonary about the possibility of amiodarone lung toxicity after follow-up chest CT today. Continue telemetry? Yes
--- NOTE | 2018-06-15 15:36 | ECHOCARDIOGRAM REPORT ---
JORDAN OLSON Age: 72 : 1945 Gender: M Exam Date: 06/15/2018 08:54 Exam Location: [address] Ht (in): 71 Wt (lb): 219 BSA: 2.26 BP: 134 / 76 Ordering Physician: Rubina Gerber MD Referring Physician: Garry Gamble MD Technologist: Jonelle Cohen [facility] Room Number: 188 Indications: Atrial fibrillation Rhythm: Sinus Technical Quality: Poor, Technically difficult study FINDINGS Left Ventricle Normal size left ventricle. Normal left ventricular wall thickness. No obvious regional wall motion abnormalities. Normal left ventricular ejection fraction visually estimated at >55%. "pseudonormal" filling pattern of the left ventricle for age (stage 2 diastolic dysfunction). Right Ventricle Normal right ventricular size and function. Right Atrium Normal right atrial size. Left Atrium Normal left atrial size. Mitral Valve Mild mitral annular calcification. Mitral valve not well visualized, grossly normal. Trace mitral regurgitation. Mitral valve not well visualized. Aortic Valve Aortic valve not well visualized. Mild aortic sclerosis. No aortic valve stenosis or regurgitation. Tricuspid Valve Tricuspid valve not well visualized, grossly normal. Trace tricuspid regurgitation. Unable to estimate the right ventricular systolic pressure. Pulmonic Valve Pulmonic valve not well visualized. No pulmonic regurgitation. Pericardium Small pericardial effusion. No echocardiographic findings to suggest a hemodynamically significant pericardial effusion. Great Vessels Normal size aortic root. CONCLUSIONS Normal size left ventricle. Normal left ventricular wall thickness. Normal left ventricular ejection fraction visually estimated at > 55%. "pseudonormal" filling pattern of the left ventricle for age (stage 2 diastolic dysfunction). "pseudonormal" filling pattern of the left ventricle for age (stage 2 diastolic dysfunction). Normal atrial size. Trace mitral regurgitation. Trace tricuspid regurgitation. Unable to estimate the right ventricular systolic pressure. Small pericardial effusion. Garry Gamble M.D. (Electronically Signed) Final Date: 15 June 2018 15:35 MEASUREMENTS (Male / Female) Normal Values 2D ECHO LV Diastolic Diameter PLAX 4.2 cm 4.2 - 5.9 / 3.9 - 5.3 cm LV Systolic Diameter PLAX 2.8 cm 2.1 - 4.0 cm LV Fractional Shortening PLAX 33.3 % 25 - 46 % LV Ejection Fraction 2D Teich 62.4 % IVS Diastolic Thickness 0.8 cm LVPW Diastolic Thickness 0.8 cm LV Relative Wall Thickness 0.4 RV Internal Dim ED PLAX 2.9 cm 1.9 - 3.8 cm LVOT Diameter 2.0 cm Aortic Root Diameter 3.3 cm LA Systolic Diameter LX 3.0 cm 3.0 - 4.0 / 2.7 - 3.8 cm LA Volume 18.0 cm 18 - 58 / 22 - 52 cm DOPPLER AV Peak Velocity 114.0 cm/s AV Peak Gradient 5.2 mmHg AV Mean Velocity 80.7 cm/s AV Mean Gradient 3.0 mmHg AV Velocity Time Integral 24.1 cm LVOT Peak Velocity 109.0 cm/s LVOT Peak Gradient 4.8 mmHg LVOT Mean Velocity 76.7 cm/s LVOT Mean Gradient 3.0 mmHg LVOT Velocity Time Integral 22.9 cm LVOT Stroke Volume 71.9 cm AV Area Cont Eq vti 3.0 cm AV Area Cont Eq pk 3.0 cm MV Peak Velocity 111.0 cm/s MV Peak Gradient 4.9 mmHg MV Mean Velocity 71.1 cm/s MV Mean Gradient 2.0 mmHg Mitral E Point Velocity 94.8 cm/s Mitral A Point Velocity 77.5 cm/s Mitral E to A Ratio 1.2 MV PHT Velocity 113.0 cm/s MV Deceleration Riley 508.0 cm/s MV Pressure Half Time 66.7 ms MV Area PHT 3.3 cm MV Deceleration Time 201.0 ms LV E' Lateral Velocity 12.4 cm/s Mitral E to LV E' Lateral Ratio 7.6 LV E' Septal Velocity 9.6 cm/s Mitral E to LV E' Septal Ratio 9.9
[2018-06-15 16:44] VITALS: BP 118/50
--- NOTE | 2018-06-15 16:45 | PN- Gen Med ---
Assessment/Plan Medical Assessment: #Acute Hypoxic Respiratory Failure- due to diffuse pneumonia/COPD/?CHF. Was on non-rebreather and now high flow nasal oxygen to maintain oxygenation. CTPA negative for PE. May be some component of mucous plugging with thick secretions. Also may be some volume overload. Appreciate Pulmonary and Cardiology follow-up. Plan: Continue high flow nasal oxygen. ECHO done - Dr. Wills to review. Agree with Furosemide IV x 1 dose (given). Close respiratory monitoring and transfer to ICU if worsening. #Multilobar Pneumonia- culture growing enterobacter cloacae and stenotrophomonas maltophilia. Discussed with Dr. Cifuentes. Avalox should cover, however will change antibiotic to Levaquin as lab tests sensitivity of stenotrophomonas to that quinolone. Plan: As above will start change Avalox to Levaquin and continue. Send repeat sputum culture. #COPD- lungs sound slightly improved since yesterday. Plan: Continue IV Medrol and aerosol. #Chronic Pain- patient states he usually takes 10 mg of oxycodone (Percocet being given is 5 mg). He is aware we are avoiding respiratory depression, however he feels he may be "withdrawing" as he normally takes higher dose. Plan: Would allow 10 mg oxycodone and follow respiratory status closely. #Cardiac- PAF, CAD- patient with negative troponins. Plan: Continue amiodarone, coumadin. Problem List: 1. Pneumonia Qualifiers Pneumonia type: due to unspecified organism Laterality: left Lung location: lower lobe of lung Qualified Code: J18.1 - Lobar pneumonia, unspecified organism 2. Elevated brain natriuretic peptide (BNP) level 3. Acute respiratory failure with hypoxia 4. COPD (chronic obstructive pulmonary disease) 5. Paroxysmal A-fib Plan: As above DVT/Prophylaxis: pharmacological Consulting Request: Consulting Physician: Dr. Ann, Pulmonary Dr. Gamble, Cardiology Dr. Cifuentes, [place] Reason for Consult: Pneumonia, respiratory failure, PAF Patient's Concerns: Breathing worse than 2 days ago. Resolution: Consultants in put- change antibiotic and give IV Lasix. Discharge Plan Discharge Disposition: home Stable for Discharge? No Anticipated Discharge (Day): unknown Subjective Complaints: pain scale (0-10) (6-8) Tele-Events Since Last Visit: Increase oxycodone from 5 mg to 10 mg which his is usual dose. Subjective: The patient has had worsening respiratory symptoms and hypoxemia. Was place on Non-rebreather over night and was on high flow nasal oxygen at the time of my exam at 8:30 am. He stated he had "thick brown" sputum that he was producing this morning. No chest pain. Review of Systems Constitutional: Reports: malaise. EENTM: Denies: no symptoms. Cardiovascular: Denies: no symptoms. Respiratory: Reports: cough, short of breath, sputum production. Gastrointestinal: Denies: no symptoms. Genitourinary: Denies: no symptoms. Musculoskeletal: Reports: back pain. Denies: no symptoms. Skin: Denies: no symptoms. Neurological/Psychological: Denies: no symptoms. Hematologic/Endocrine: Denies: no symptoms. Immunologic/Allergic: Denies: no symptoms. Objective Last 24 Hrs of Vital Signs/I&O Vital Signs Date Time Temp Pulse Resp B/P B/P Pulse O2 O2 Flow FiO2 Mean Ox Delivery Rate 06/15 1510 97.5 76 18 108/60 89 Nasal Cannula 06/15 1018 84 124/76 06/15 1016 84 124/76 06/15 0814 92 Nasal 45% Cannula 06/15 0740 98.5 84 20 124/76 91 Non ReBreather 06/15 0201 93 Nasal 45% Cannula 06/15 0000 Nasal 45% Cannula 06/14 2248 98.8 86 20 116/74 91 Non ReBreather 06/14 2210 98.8 86 20 116/74 06/14 2033 90 Nasal 45% Cannula 06/14 1926 92 Nasal 8L Cannula 06/14 1902 98.7 90 25 136/68 91 06/14 1845 91 Nasal 40% Cannula 06/14 1637 90 Nasal 8L Cannula Intake & Output 06/15 1600 06/15 0800 06/15 0000 Intake Total 620 10 200 Output Total 300 600 450 Balance 320 -590 -250 Intake, IV 20 10 Intake, Oral 600 200 Number 0 Bowel Movements Output, Urine 300 600 450 Patient 208 lb Weight Weight Bed scale Measurement Method Physical Exam General Appearance: Alert, Oriented X3, Cooperative, Mild Distress Skin: No Rashes, No Breakdown, No Significant Lesion Sepsis Skin Exam (color): Normal for Ethnicity HEENT: Atraumatic, PERRLA, EOMI, Mucous Membr. moist/pink Neck: No JVD, +2 Carotid Pulse wo Bruit Cardiovascular: Regular Rate, Normal S1, Normal S2, No Murmurs Lungs: Mild expir wheeze, mild diminished breath sounds, + left lung with find rales and some rhonchi Abdomen: Normal Bowel Sounds, Soft, No Tenderness, No Masses Neurological: Normal Speech, Strength at 5/5 X4 Ext Extremities: No Edema, Normal Pulses Vascular: Normal Pulses, Pulses Symmetrical Current Medications: Current Medications Sig/Mark Start time Last Medication Dose Route Stop Time Status Admin Albuterol Sulfate 3 ML EVERY 4 HRS/AWAKE 06/14 1600 AC 06/15 INH 1206 Albuterol Sulfate 2 PUF Q4-6 PRN PRN 06/11 1530 AC INH Amiodarone HCl 200 MG DAILY 06/12 0900 AC 06/15 PO 1016 Aspirin 81 MG DAILY 06/15 0900 AC 06/15 PO 1016 Cholecalciferol 1,000 IU DAILY 06/12 1123 AC 06/15 PO 1020 Clonazepam 0.5 MG DAILY 06/11 1525 AC 06/15 PO 06/18 1524 1021 Cyanocobalamin 1,000 MCG DAILY 06/12 1456 AC 06/15 PO 1020 Furosemide 20 MG ONCE ONE 06/15 1515 DC IV 06/15 1516 Gabapentin 600 MG BID 06/11 2100 AC 06/15 PO 1018 Guaifenesin 600 MG Q12 06/13 2100 AC 06/15 PO 1017 Lactobacillus 1 CAP DAILY 06/13 1215 AC 06/15 Acidophilus PO 1019 Levofloxacin 500 MG DAILY 06/15 1015 AC 06/15 PO 1112 Methylprednisolone 40 MG Q8 06/14 1400 AC 06/15 IV 1423 Midodrine 5 MG BID 06/11 2100 AC 06/15 PO 1018 Mirtazapine 15 MG QPM 06/11 2100 AC 06/14 PO 2053 Moxifloxacin HCl 400 MG DAILY 06/12 0900 DC 06/14 PO 0914 Omeprazole 20 MG BID 06/11 2100 AC 06/15 PO 1018 Oxycodone/ 1 TAB 1700 PRN 06/14 1700 AC 06/14 Acetaminophen PO 1904 Oxycodone/ 1 TAB DAILY 06/14 1245 AC 06/15 Acetaminophen PO 0639 Tamsulosin HCl 0.4 MG DAILY 06/11 1527 AC 06/15 PO 1018 Tizanidine HCl 4 MG QPM PRN 06/11 1530 AC 06/15 PO 1601 Warfarin Sodium 5 MG COUMADIN 1700 ONE 06/15 1700 AC PO 06/15 1701 Warfarin Sodium 5 MG COUMADIN 1700 ONE 06/14 1700 DC 06/14 PO 06/14 1701 1713 Last 24 Hrs of Labs/Mics: Laboratory Tests 06/15/18 0625: PT 26.7 H, INR 2.43 H 06/14/18 1940: Troponin I 0.02
[2018-06-15 23:26] VITALS: BP 108/60
[2018-06-16 06:08] VITALS: BP 118/64
--- NOTE | 2018-06-16 07:50 | Discharge Summary ---
Hospital Course Course Consulting Request: Consulting Physician: Dr. Ann, Pulmonary Dr. Gamble, Cardiology Dr. Cifuentes, ID Reason for Consult: Pneumonia, respiratory failure, PAF Allergies: Coded Allergies: Penicillins (Severe, SWELLING THROAT 06/11/18) Discharge Instructions Medications at Discharge Discharge Medications: Stop taking the following medications: Meloxicam (Meloxicam) 15 MG TABLET ORAL DAILY as needed for PAIN Qty = 30 Continue taking these medications: Fluticasone/Salmeterol (Advair 250-50 Diskus) 250 MCG-50 MCG/DOSE BLST.W.DEV 1 Puff Inhale through mouth TWICE DAILY Qty = 60 Albuterol Sulfate (Ventolin Hfa) 90 MCG HFA.AER.AD 2 Puff Inhale through mouth EVERY 4-6 HOURS NEEDED as needed for SHORTNESS OF BREATH Qty = 18 Aspirin (Aspirin*) 81 MG TAB.CHEW 1 Tablet ORAL DAILY Clonazepam (Clonazepam) 0.5 MG TABLET 1 Tablet ORAL DAILY Qty = 30 Tamsulosin HCl (Tamsulosin HCl) 0.4 MG CAP.ER.24H 1 Capsule ORAL DAILY Qty = 90 Gabapentin (Gabapentin) 600 MG TABLET 1 Tablet ORAL THREE TIMES DAILY Qty = 90 Warfarin Sodium (Coumadin) 4 MG TABLET 1 Tablet ORAL 5 PM Qty = 90 Mirtazapine (Mirtazapine) 15 MG TABLET 1 Tablet ORAL Every night Qty = 30 Midodrine HCl (Midodrine HCl) 5 MG TABLET 1 Tablet ORAL TWICE DAILY Qty = 100 Omeprazole (Omeprazole) 20 MG CAPSULE.DR 1 Capsule ORAL TWICE DAILY Qty = 180 Oxycodone HCl/Acetaminophen (Oxycodone-Acetaminophen 10-325) 10 MG-325 MG TABLET 1 Tablet ORAL 2 x Daily as needed as needed for PAIN Qty = 60 Tizanidine HCl (Tizanidine HCl) 4 MG TABLET 1 Tablet ORAL Every night as needed for SPASMS Qty = 90 Albuterol Sulfate (Albuterol Sulfate) 2.5 MG/3 ML (0.083 %) VIAL.NEB 1 Vial Inhale Solution EVERY 4 HOURS NEEDED as needed for SHORTNESS OF BREATH Qty = 300 Start taking the following new medications: Moxifloxacin HCl (Moxifloxacin HCl) 400 MG TABLET 400 Milligram ORAL DAILY Qty = 5 No Refills Prednisone (Prednisone) 10 MG TABLET 1 Tablet ORAL SEE INSTRUCT Qty = 20 No Refills Instructions: TAKE 4 PER DAY FOR 2 DAYS TAKE 3/DAY 2 DAYS TAKE 2/DAY 2 DAYS TAKE 1/DAY 2 DAYS Cyanocobalamin (Vitamin B-12) 1,000 MCG TABLET 2 Tablet ORAL DAILY Qty = 60 No Refills Cholecalciferol (Vitamin D3) 1,000 UNIT TABLET 1,000 International Unit ORAL DAILY Qty = 30 No Refills The following medications have been changed: Old: Amiodarone HCl (Amiodarone HCl) 200 MG TABLET 1 Tablet ORAL TWICE DAILY Qty = 60 New: Amiodarone HCl (Amiodarone HCl) 200 MG TABLET 1 Tablet ORAL DAILY Qty = 30
--- NOTE | 2018-06-16 07:56 | PN- Housestaff ---
See Addendum Subjective Follow-up For: Acute hypoxic respiratory failure secondary to pneumonia/lung cancer recurrence/ COPD/pneumonitis secondary to amiodarone Supratherapeutic INR Swallowing difficulties Hemoptysis Subjective: Seen and examined. Patient states that he is "feeling a lot better". He is eating and ambulating. However, his cough has not abated and he had one fit of coughing on interview. The patient had an acute decompensation of his respiratory status during the weekend and was transferred from [facility] to telemetry. He was put on high flow oxygen where he remains now at 45-50% all other vitals are stable. Workup for his acute decompensation showed only an extensive airspace disease through the left lung that had worsened from his CT 3 days prior on CTA. Review of Systems Constitutional: Reports: no symptoms. EENTM: Reports: no symptoms. Cardiovascular: Reports: no symptoms. Respiratory: Reports: cough, short of breath. Gastrointestinal: Reports: no symptoms. Genitourinary: Reports: no symptoms. Musculoskeletal: Reports: no symptoms. Skin: Reports: no symptoms. Neurological/Psychological: Reports: no symptoms. Objective Last 24 Hrs of Vital Signs/I&O Vital Signs Date Time Temp Pulse Resp B/P B/P Pulse O2 O2 Flow FiO2 Mean Ox Delivery Rate 06/16 1518 98.2 86 20 110/60 91 06/16 0916 91 Nasal 50% Cannula 06/16 0829 73 118/64 06/16 0829 73 118/64 06/16 0800 98.3 73 18 118/64 06/16 0608 98.3 73 18 118/64 90 Nasal Cannula 06/16 0002 91 Nasal 45% Cannula 06/16 0000 Part 45% ReBreather 06/15 2326 98.3 72 18 108/60 90 Nasal Cannula 06/15 1644 97.5 76 18 118/50 06/15 1637 89 Nasal 45% Cannula 06/15 1633 Nasal Cannula Intake & Output 06/16 1600 06/16 0800 06/16 0000 Intake Total 220 Output Total 300 400 Balance -300 -180 Intake, Oral 220 Output, Urine 300 400 Patient 209 lb Weight Physical Exam General Appearance: Alert, Oriented X3, Cooperative, No Acute Distress Skin: No Rashes, No Breakdown, No Significant Lesion Sepsis Skin Exam (color): Normal for Ethnicity Neck: Supple, No JVD Cardiovascular: Regular Rate, Normal S1, Normal S2, No Murmurs Lungs: no wheezing, very mild rhonchi Abdomen: Normal Bowel Sounds, Soft, No Tenderness Neurological: Normal Speech Extremities: No Clubbing, No Cyanosis, No Edema, Normal Pulses Current Medications: Current Medications Sig/Mark Start time Last Medication Dose Route Stop Time Status Admin Albuterol Sulfate 3 ML EVERY 4 HRS/AWAKE 06/14 1600 AC 06/16 INH 1251 Albuterol Sulfate 2 PUF Q4-6 PRN PRN 06/11 1530 AC INH Amiodarone HCl 200 MG DAILY 06/12 0900 DC 06/16 PO 0829 Aspirin 81 MG DAILY 06/15 0900 AC 06/16 PO 0828 Cholecalciferol 1,000 IU DAILY 06/12 1123 AC 06/16 PO 0829 Clonazepam 0.5 MG DAILY 06/11 1525 AC 06/16 PO 06/18 1524 0824 Cyanocobalamin 1,000 MCG DAILY 06/12 1456 AC 06/16 PO 0829 Furosemide 40 MG ONCE ONE 06/16 1530 DC IV 06/16 1531 Gabapentin 600 MG BID 06/11 2100 AC 06/16 PO 0828 Guaifenesin 600 MG Q12 06/13 2100 AC 06/16 PO 0828 Lactobacillus 1 CAP DAILY 06/13 1215 AC 06/16 Acidophilus PO 0829 Levofloxacin 500 MG DAILY 06/15 1015 AC 06/16 PO 0829 Methylprednisolone 40 MG Q8 06/14 1400 AC 06/16 IV 06/17 0000 1437 Midodrine 5 MG BID 06/11 2100 AC 06/16 PO 0829 Mirtazapine 15 MG QPM 06/11 2100 AC 06/15 PO 2117 Omeprazole 20 MG BID 06/11 2100 AC 06/16 PO 0829 Oxycodone/ 1 TAB 1700 PRN 06/14 1700 AC 06/15 Acetaminophen PO 1813 Oxycodone/ 1 TAB DAILY 06/14 1245 AC 06/16 Acetaminophen PO 0825 Prednisone 60 MG DAILY 06/17 0900 AC PO Tamsulosin HCl 0.4 MG DAILY 06/11 1527 AC 06/16 PO 0829 Tizanidine HCl 4 MG QPM PRN 06/11 1530 AC 06/15 PO 1601 Tramadol HCl 50 MG .STK-MED ONE 06/16 0106 DC PO 06/16 0107 Tramadol HCl 50 MG ONCE ONE 06/15 2245 DC 06/16 PO 06/15 2246 0120 Warfarin Sodium 5 MG COUMADIN 1700 ONE 06/15 1700 DC 06/15 PO 06/15 1701 1810 Last 24 Hrs of Lab/Franco Results Last 24 Hrs of Labs/Mics: Laboratory Tests 06/16/18 0623: Anion Gap 8, Estimated GFR > 60, BUN/Creatinine Ratio 34.0 H, PT 37.7 H, INR 3.42 H, CBC w Diff NO MAN DIFF REQ, RBC 3.77 L, MCV 89.8, MCH 29.6, MCHC 33.0, RDW 18.5 H, MPV 8.1, Gran % 89.7 H, Lymphocytes % 6.0 L, Monocytes % 4.3, Eosinophils % 0, Basophils % 0, Absolute Granulocytes 10.6 H, Absolute Lymphocytes 0.7 L, Absolute Monocytes 0.5, Absolute Eosinophils 0, Absolute Basophils 0 Assessment/Plan Assessment: 72 year old male with a PMH significant for COPD, afib, lung cancer sp right upper lobectomy 7 years ago with one year of chemo and radiation, vascular disease sp AAA repair also 7 years ago, afib with implanted loop recorder on Coumadin, that is BIBA for complaints of dyspnea and altered mental status. The patient has been apparently deteriorating over the past couple months, with mild cough with brownish/reddish sputum, on and off dizziness and blurriness of the eyes, and more recently, confusion and unsteadiness on his feet. The patient has also recently had uncontrolled bleeding. He is on Coumadin 4 mg daily and as per his , his pills have been mixed up recently and he may have taken more than the doses been prescribed. The patient was found in the field to be hypoxic and was placed on supplemental oxygen. He was given Solu-Medrol as well as the field. The patient sees a PCP and bailiff in [place], phone numbers in the HPI. Of note, patient is severely allergic to penicillin, has anaphylactic reaction. Vitals in the urgency room were temperature 101.2 which decreased to 99, heart rate 102 which decreased to 90s, respiratory rate 24, blood pressure 125/56, 91% oxygen saturation on 4 L nasal cannula which was tapered down to 2 L, 94% oxygen saturation. Labs showed a WBC count of 9.4 with bandemia, hemoglobin 11.4, no old labs available, creatinine 1.4, BNP 2370, negative troponin, INR 8.09 with repeat INR of 8.43 Chest x-ray showed evidence of remote right upper lobectomy, upper half right hemithorax completely opacified which signifies plural effusion or fibrotic changes or tumor recurrence. Additionally seen was left lower lobe opacity. EKG showed a rate of 100 with a QTC of 470 and flipped P waves significant for ectopic atrial beats. In the ED, patient had blood cultures 2 taken and got 1 dose of moxifloxacin. 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 Chest x-ray shows evidence of pneumonia as well as potential recurrence of cancer/pleural effusionfibrotic changes. The patient was septic with an elevated heart rate and temperature up to 102 on admission with a suspected source of infection being the lung. -Hemoptysis: Patient had 1 episode of hemoptysis with about a teaspoon of blood produced. He recently had brownish reddish sputum for the past few weeks. -Supratherapeutic INR: Patient usually takes 4 mg of warfarin every day was found to have INR over 8 on admission. -Altered mental status and falls: Patient recently had unsteadiness on his feet , confusion, poor memory, and a fall out of bed. -History of lung cancer: Right upper lobe lobectomy 7 years ago with chemotherapy and radiation for 1 year. The patient has not followed up with an oncologist for several years. -Dysphagia: Patient notices difficulty in swallowing pills, no issues with swallowing food or drink. -History of A. fib with implanted loop recorder: Patient sees a bailiff and EP down in [place], has an appointment with them in about one month. The patient is on warfarin for anticoagulation and amiodarone. He also has implantable loop recorder. Plan -We transferred the patient to telemetry for continuous pulse ox monitoring as well as cardiac monitoring as he acutely decompensated over the weekend -Chest x-ray done during the weekend after decompensation was largely unchanged from prior. Troponins negative EKGs no evidence of ACS, BNP unchanged. -Patient respiratory cultures returned positive for Enterobacter and stenotrophomonas that was sensitive namely to Levaquin. Moxifloxacin would likely cover these bugs but over the weekend antibiotic coverage was switched to Levaquin 500 mg daily. WBC today is 11.8 down from 14.2 yesterday, -Solu-Medrol 40 mg every 8 will be tapered to 60 mg of prednisone tomorrow as per pulmonology request -For the patient's acute kidney injury we gave 1 bag of normal saline to good effect on admission and have not had any problems since. -Echocardiogram done over the weekend showed stage II diastolic dysfunction and an ejection fraction of 55%. -Patient's loop recorder was interrogated last week and showed previous pauses and bouts of A. fib in early May, nothing recently. These were found while patient was on 200 mg twice a day of amiodarone. We decreased the patient's amiodarone dose because of potential pulmonary toxicity that has occurred from twice daily to once a day. However now for further concern, we will stop amiodarone. We will defer to cardiology to consider MultAQ or another rhythm medication. -On admission we ordered CT head without contrast as patient has supratherapeutic INR and did fall earlier prior to admission. It showed no acute intracranial abnormality. -On admission we ordered CT of the chest without contrast as patient has a history of lung cancer, recurrent hemoptysis, and question of recurrence of mass on his chest x-ray. CT chest showed dense fibrosis and volume loss in the superior segments of the right lower and middle lobes near the apex of the right hemithorax consistent with prior radiation. No superimposed lesions were found. Also found was patchy multifocal groundglass airspace opacities with small consolidative/solid components possibly due to multifocal pneumonia or multifocal adenocarcinoma in situ. There are finally areas of subtle interlobular septal thickening suggesting early fibrotic change also likely related to prior asbestos exposure. We are treating the patient for the pneumonia and he will likely require a repeat CT scan after 4-6 weeks to evaluate for any cancer recurrence. Patient had a repeat CT, CTA this weekend when he acutely decompensated and it showed extensive airspace disease through the left lung that was worsened from his CT 3 days prior. -Urine Legionella and strep negative -CBC was stable despite patient's hemoptysis. Patient is currently back on his blood thinning medications Coumadin and aspirin as he has no longer had episodes of hemoptysis. -We gave vitamin K for admission INR of 8.43 and INR decreased to less than 2 last week. Patient was dosed his normal 4 mg warfarin dose and INR was still less than 2. Over the weekend we gave 5 mg of warfarin and patient's INR is now 3.42. We will hold Coumadin today and recheck INR in the morning. -Patient was cleared with swallow evaluation but CT scan showed reflux of food into the upper esophagus. Speech and swallow suggested normal diet but taking pills with apple sauce. 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 -Physical therapy consult as patient has had recent unsteadiness on his feet. -Patient will need follow up with his doctor as he was found to have low TSH and T3 indicative of amiodarone effects. He will need follow up LFTs and TFTs q3-6 months if he is put back on amiodarone. -Additionally carotid ultrasound showed hemodynamically significant stenosis in left external carotid artery and he will need to follow up with his PCP for a vascular consult one he arrives back in [place]. Full Code Heart healthy diet DVT prophylaxis with Alps and coumadin Problem List: 1. Pneumonia 2. Paroxysmal A-fib 3. COPD (chronic obstructive pulmonary disease) 4. Acute respiratory failure with hypoxia 5. Swallowing difficulty 6. Supratherapeutic INR Pain Ratin Pain Location: na Pain Goal: Remain pain free Pain Plan: na Tomorrow's Labs & Rationales: inr Consulting Request: Consulting Physician: Dr. Ann, Pulmonary Dr. Gamble, Cardiology Dr. Cifuentes, ID Reason for Consult: Pneumonia, respiratory failure, PAF
[2018-06-16 08:00] VITALS: BP 118/64
[2018-06-16 08:16] LABS: PT 37.7 SEC (9.4-12.5)
[2018-06-16 08:29] LABS: ABSOLUTE BASOPHIL COUNT 0 /CUMM (0.0-0.2); ABSOLUTE EOSINOPHIL COUNT 0 /CUMM (0.0-0.7); ABSOLUTE GRANULOCYTE CT 10.6 /CUMM (1.4-6.5); ABSOLUTE LYMPH COUNT 0.7 /CUMM (1.2-3.4); ABSOLUTE MONOCYTE COUNT 0.5 /CUMM (0.10-0.60); BASOPHIL % 0 % (0.0-2.0); EOSINOPHIL % 0 % (0-5); HEMATOCRIT 33.8 % (42-52); MEAN CORPUSCULAR HGB 29.6 PG (27.0-31.0); MEAN CORPUSCULAR VOLUME 89.8 FL (80.0-94.0); MEAN PLATELET VOLUME 8.1 FL (7.4-10.4); PLATELET COUNT 282 /CUMM (130-400); RBC DISTRIBUTION WIDTH 18.5 % (11.5-14.5); RED BLOOD CELL CT 3.77 /CUMM (4.70-6.10); WHITE BLOOD CELL COUNT 11.8 /CUMM (4.8-10.8)
[2018-06-16 09:50] LABS: GRANULOCYTE % 89.7 % (42.2-75.2)
--- NOTE | 2018-06-16 13:13 | PN- Infect Dx ---
Subjective Subjective: Afebrile on steroids. He feels improved with decreased shortness of breath. He did cough up dark sputum this morning but denies any hemoptysis Objective Last 24 Hrs of Vital Signs/I&O Vital Signs Date Time Temp Pulse Resp B/P B/P Pulse O2 O2 Flow FiO2 Mean Ox Delivery Rate 06/16 0916 91 Nasal 50% Cannula 06/16 0829 73 118/64 06/16 0829 73 118/64 06/16 0800 98.3 73 18 118/64 06/16 0608 98.3 73 18 118/64 90 Nasal Cannula 06/16 0002 91 Nasal 45% Cannula 06/16 0000 Part 45% ReBreather 06/15 2326 98.3 72 18 108/60 90 Nasal Cannula 06/15 1644 97.5 76 18 118/50 06/15 1637 89 Nasal 45% Cannula 06/15 1633 Nasal Cannula 06/15 1510 97.5 76 18 108/60 89 Nasal Cannula Intake & Output 06/16 1600 06/16 0800 06/16 0000 Intake Total 220 Output Total 400 Balance -180 Intake, Oral 220 Output, Urine 400 Patient 209 lb Weight Physical Exam Other Physical Findings: He appears comfortable on high flow oxygen, in no acute distress Lungs scattered rhonchi Heart regular rhythm with no murmur Extremities no cyanosis, clubbing or edema Results Last 24 Hours of Lab Results: Laboratory Tests 06/16 06 Chemistry Sodium (137 - 145 mmol/L) 140 Potassium (3.5 - 5.1 mmol/L) 4.2 Chloride (98 - 107 mmol/L) 101 Carbon Dioxide (22 - 30 mmol/L) 31 H Anion Gap (5 - 16) 8 BUN (9 - 20 mg/dL) 34 H Creatinine (0.7 - 1.2 mg/dL) 1.0 Estimated GFR (>60 ml/min) > 60 BUN/Creatinine Ratio (7 - 25 %) 34.0 H Coagulation PT (9.4 - 12.5 SEC) 37.7 H INR (0.90 - 1.17) 3.42 H Hematology CBC w Diff NO MAN DIFF REQ WBC (4.8 - 10.8 /CUMM) 11.8 H RBC (4.70 - 6.10 /CUMM) 3.77 L Hgb (14.0 - 18.0 G/DL) 11.1 L Hct (42 - 52 %) 33.8 L MCV (80.0 - 94.0 FL) 89.8 MCH (27.0 - 31.0 PG) 29.6 MCHC (33.0 - 37.0 G/DL) 33.0 RDW (11.5 - 14.5 %) 18.5 H Plt Count (130 - 400 /CUMM) 282 MPV (7.4 - 10.4 FL) 8.1 Gran % (42.2 - 75.2 %) 89.7 H Lymphocytes % (20.5 - 51.1 %) 6.0 L Monocytes % (1.7 - 9.3 %) 4.3 Eosinophils % (0 - 5 %) 0 Basophils % (0.0 - 2.0 %) 0 Absolute Granulocytes (1.4 - 6.5 /CUMM) 10.6 H Absolute Lymphocytes (1.2 - 3.4 /CUMM) 0.7 L Absolute Monocytes (0.10 - 0.60 /CUMM) 0.5 Absolute Eosinophils (0.0 - 0.7 /CUMM) 0 Absolute Basophils (0.0 - 0.2 /CUMM) 0 Last 24 Hours of Franco Results: No recent cultures Assessment/Plan ID Impression: Improving, with temperatures remaining normal (on steroids) and white blood cell count decreasing, now on Levofloxacin, Day 2 of treatment for presumed left lung pneumonia secondary to Enterobacter and Stenotrophomonas, both of which were isolated from a recent sputum culture. Suggestion: 1. Further management of steroids per Pulmonary 2. Continue Levofloxacin
--- NOTE | 2018-06-16 13:44 | PN- Pulmonary ---
Subjective HPI/Critical Care Issues: Events and data reviewed Sig desat with profound hypoxia with ct showing severe GGO Now on high flow Objective Current Medications: Current Medications Sig/Mark Start time Last Medication Dose Route Stop Time Status Admin Albuterol Sulfate 3 ML EVERY 4 HRS/AWAKE 06/14 1600 AC 06/16 INH 1251 Albuterol Sulfate 2 PUF Q4-6 PRN PRN 06/11 1530 AC INH Amiodarone HCl 200 MG DAILY 06/12 0900 AC 06/16 PO 0829 Aspirin 81 MG DAILY 06/15 0900 AC 06/16 PO 0828 Cholecalciferol 1,000 IU DAILY 06/12 1123 AC 06/16 PO 0829 Clonazepam 0.5 MG DAILY 06/11 1525 AC 06/16 PO 06/18 1524 0824 Cyanocobalamin 1,000 MCG DAILY 06/12 1456 AC 06/16 PO 0829 Furosemide 20 MG ONCE ONE 06/15 1515 DC 06/15 IV 06/15 1516 1704 Gabapentin 600 MG BID 06/11 2100 AC 06/16 PO 0828 Guaifenesin 600 MG Q12 06/13 2100 AC 06/16 PO 0828 Lactobacillus 1 CAP DAILY 06/13 1215 AC 06/16 Acidophilus PO 0829 Levofloxacin 500 MG DAILY 06/15 1015 AC 06/16 PO 0829 Methylprednisolone 40 MG Q8 06/14 1400 AC 06/16 IV 0614 Midodrine 5 MG BID 06/11 2100 AC 06/16 PO 0829 Mirtazapine 15 MG QPM 06/11 2100 AC 06/15 PO 2117 Omeprazole 20 MG BID 06/11 2100 AC 06/16 PO 0829 Oxycodone/ 1 TAB 1700 PRN 06/14 1700 AC 06/15 Acetaminophen PO 1813 Oxycodone/ 1 TAB DAILY 06/14 1245 AC 06/16 Acetaminophen PO 0825 Tamsulosin HCl 0.4 MG DAILY 06/11 1527 AC 06/16 PO 0829 Tizanidine HCl 4 MG QPM PRN 06/11 1530 AC 06/15 PO 1601 Tramadol HCl 50 MG .STK-MED ONE 06/16 0106 DC PO 06/16 0107 Tramadol HCl 50 MG ONCE ONE 06/15 2245 DC 06/16 PO 06/15 2246 0120 Warfarin Sodium 5 MG COUMADIN 1700 ONE 06/15 1700 DC 06/15 PO 06/15 1701 1810 Vital Signs & I&O Last 24 Hrs of Vitals and I&O: Vital Signs Date Time Temp Pulse Resp B/P B/P Pulse O2 O2 Flow FiO2 Mean Ox Delivery Rate 06/16 0916 91 Nasal 50% Cannula 06/16 0829 73 118/64 06/16 0829 73 118/64 06/16 0800 98.3 73 18 118/64 06/16 0608 98.3 73 18 118/64 90 Nasal Cannula 06/16 0002 91 Nasal 45% Cannula 06/16 0000 Part 45% ReBreather 06/15 2326 98.3 72 18 108/60 90 Nasal Cannula 06/15 1644 97.5 76 18 118/50 06/15 1637 89 Nasal 45% Cannula 06/15 1633 Nasal Cannula 06/15 1510 97.5 76 18 108/60 89 Nasal Cannula Intake & Output 06/16 1600 06/16 0800 06/16 0000 Intake Total 220 Output Total 400 Balance -180 Intake, Oral 220 Output, Urine 400 Patient 209 lb Weight Impression/Plan Impression/Plan Impression/Plan: CTA IMPRESSION: 1. No CT evidence for acute pulmonary embolism. 2. Status post right upper lobectomy. Enhancement of the soft tissue at the level of the right lung apex. While this may represent granulation tissue in the postoperative setting of possible of locally recurrent malignancy should be additionally considered. 3. Extensive airspace disease throughout the left lung, worsened compared to the CT from 3 days prior. Differential diagnostic considerations would include infectious etiologies versus background edema. Multifocal adenocarcinoma can also have this appearance. 4. 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 5. 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 VTE: negative DICTATED BY: Luis Manuel FRANKLIN,Carmen IMPRESSION 72-year-old male past medical history of COPD not on home oxygen, Locally advanced lung cancer status post right upper lobectomy xrt and chemo and treatment 7 years ago, AAA repair in the past and atrial fibrillation with a loop recorder. He is here from [place] visiting his daughter and for the past week has been having increasing shortness of breath. The family also feels he's been confused and mixing up his medications and generally feeling weak. They brought him in today because he fell out of bed and was having visible difficulty breathing. 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 * History of locally advanced Lung ca 6 yrs ago with rt upperlobectomy followed by xrt and chemo now with evidence of dense fibrosis in the rt middle lobe and volume loss * COPD with mild wheezing with mild copd exacerbation, with ongoing smoking * Hypoxic resp failure now improving * Pleural thickening and evidence of pulm fibrosis needs longitudinal follow up * Esophageal thickening with reflux with dysphagia -barium swallow reviewed, MBS showed no sig aspriation risk - needs follow up eval * Pafib with Inital supratherapeutic inr now with very mild hemoptysis (prob related to pulm infiltrate), now with sinus rhythm prob - Inr trending down * Elevated BNP high risk for chf * Gait imbalance and recent memory loss - needs eval- * Sig B12 def noted by blood work needs b12 injections followed by high dose po/ vit d def noted * GEO resolved * Near syncope and a fall initially REC Cont abx levo or moxi for total of 7-10 days DC amiodarone and ask cardio to consider multaq or other rhythm med One dose of iv lasix today 40 mg Prednisone 60 mg from am and dc solumedrol and will consider a slow taper Check HIV
[2018-06-16 15:18] VITALS: BP 110/60; BP 112/62
--- NOTE | 2018-06-16 18:01 | PN- Cardiology ---
Subjective Subjective: Feels as though his breathing has improved today. Objective Vital Signs and I&Os Vital Signs Date Time Temp Pulse Resp B/P B/P Pulse O2 O2 Flow FiO2 Mean Ox Delivery Rate 06/16/2018 97.9 68 20 118/70 Intake & Output Physical Exam: Well-developed, overweight elderly male in no acute distress with nasal oxygen in place. Vital signs: See above. HEENT: Normocephalic, atraumatic, EOMI, slightly dry mucous membranes. Neck: No JVD, bilateral carotid bruits versus transmitted systolic murmur right greater than left. Lungs: Decreased breath sounds bilaterally. Heart: S1, S2 with grade 1-2/6 systolic murmur. No gallop or rub. PMI not well felt. Abdomen: Soft, nontender, positive bowel sounds. Extremities: No edema. Assessment/Plan Assessment/Plan [id number] w/ hx of very heavy tob use (3 ppd x 50+ yrs), COPD, lung ca s/p RUL lobectomy ~2012, chemo & radiation Rx, vascular disease s/p open AAA repair ~ 2010, previously treated dyslipidemia, CAD s/p PCI/stenting, & PAF on amiodarone /warfarin s/p LINQ recorder who presented to the ED on 06/11/2018 w/ AMS, SOB , cough productive of brown sputum, following a witnessed fall from bed from which he could not get up and who was found to be hypoxemic and febrile w/ a left shift on his WBC count, GEO, supratherapeutic INR, abnormal CXR/chest CT etc. There is concern from a pulmonary standpoint that the patient's respiratory decompensation was on the basis of amiodarone toxicity. Not really a good alternative option to the amiodarone, as this is most efficient antiarrhythmic to maintain sinus rhythm. Interrogation of the [facility] LIN[facility] recorder on 06/12/2018 revealed the following: Several episodes of bradycardia with pauses on 05/12/2018 with the 2 longest pause of ~3.0 seconds duration, one episode of atrial fibrillation on had a median ventricular rate of ~120 bpm that lasted ~24 min., no device recorded episodes since 05/12/2018, and no correlation between symptomatic episodes and dysrhythmic events. Given the recurrent atrial fibrillation it would be prudent to maintain him on full anticoagulation. Recommendations: * Continue on telemetry. * Continue full anticoagulation, given PAF. * Discontinue amiodarone given concerns that respiratory decompensation on the basis of pulmonary toxicity. * Either inpatient or outpatient electrophysiology consultation prior to patient 's return to [place]. * DVT prophylaxis being addressed. Continue telemetry? Yes
[2018-06-16 22:01] VITALS: BP 106/60
[2018-06-16 22:22] VITALS: BP 106/60
[2018-06-17] VITALS (9 sets, daily range): BP systolic 98–144; BP diastolic 50–66
--- NOTE | 2018-06-17 07:22 | PN- Housestaff ---
Buzz FRANKLIN,Rubina 06/17/18 0721: Subjective Follow-up For: Acute hypoxic respiratory failure secondary to pneumonia/lung cancer recurrence/ COPD/pneumonitis secondary to amiodarone Supratherapeutic INR Swallowing difficulties Hemoptysis Tele-Events Since Last Visit: Normal sinus rhythm, no events Subjective: Patient seen and examined. He states that he feels good. He continues on 50% nonrebreather with oxygen saturation of 92%. All other vitals within normal limits. He continues to have a cough and during interview coughed dark brown/ red sputum. Of note patient was found to have an INR of 5.07 today. Patient notes that he has not walked around much while he has been here. Review of Systems Constitutional: Reports: no symptoms. Cardiovascular: Reports: no symptoms. Respiratory: Reports: cough, hemoptysis, sputum production. Gastrointestinal: Reports: no symptoms. Genitourinary: Reports: no symptoms. Musculoskeletal: Reports: no symptoms. Skin: Reports: no symptoms. Neurological/Psychological: Reports: no symptoms. Objective Last 24 Hrs of Vital Signs/I&O Vital Signs Date Time Temp Pulse Resp B/P B/P Pulse O2 O2 Flow FiO2 Mean Ox Delivery Rate 06/17 1030 90 Nasal 5.0L Cannula 06/17 1000 97.8 87 22 108/64 06/17 0933 85 118/64 06/17 0843 94 Nasal 50% Cannula 06/17 0800 Nasal 8L Cannula 06/17 0800 97.9 74 18 98/62 06/17 0706 98.3 70 18 110/56 92 Non ReBreather 06/17 0058 97 Nasal 50% Cannula 06/16 2222 97.9 90 20 106/60 06/16 2201 97.9 94 20 106/60 94 Nasal Cannula 06/16 1655 91 Nasal 50% Cannula 06/16 1600 Nasal Cannula 06/16 1518 98.2 86 20 110/60 91 Intake & Output 06/17 1600 06/17 0800 06/17 0000 Intake Total 220 250 Output Total 1625 Balance 220 -1375 Intake, Oral 220 250 Output, Urine 1625 Patient 218 lb Weight Weight Bed scale Measurement Method Physical Exam General Appearance: Alert, Oriented X3, Cooperative, No Acute Distress Skin: No Rashes, No Breakdown Skin Temp/Moisture Exam: Warm/Dry HEENT: Atraumatic, PERRLA, EOMI, Mucous Membr. moist/pink Cardiovascular: Regular Rate, Normal S1, Normal S2, No Murmurs Lungs: Clear to Auscultation, Normal Air Movement Abdomen: Normal Bowel Sounds, Soft, No Tenderness, No Hepatospenomegaly, No Masses Neurological: Normal Speech Extremities: No Clubbing, No Cyanosis, No Edema Current Medications: Current Medications Sig/Mrak Start time Last Medication Dose Route Stop Time Status Admin Albuterol Sulfate 3 ML EVERY 4 HRS/AWAKE 06/14 1600 AC 06/17 INH 1134 Albuterol Sulfate 2 PUF Q4-6 PRN PRN 06/11 1530 AC INH Amiodarone HCl 200 MG DAILY 06/12 09 DC 06/16 PO 0829 Aspirin 81 MG DAILY 06/15 0900 AC 06/17 PO 0926 Cholecalciferol 1,000 IU DAILY 06/12 1123 AC 06/17 PO 0929 Clonazepam 0.5 MG DAILY 06/11 1525 AC 06/17 PO 06/18 1524 0933 Cyanocobalamin 1,000 MCG DAILY 06/12 1456 AC 06/17 PO 0929 Furosemide 40 MG ONCE ONE 06/16 1530 DC 06/16 IV 06/16 1531 1741 Gabapentin 600 MG BID 06/11 2100 AC 06/17 PO 0927 Guaifenesin 600 MG Q12 06/13 2100 AC 06/17 PO 0927 Lactobacillus 1 CAP DAILY 06/13 1215 AC 06/17 Acidophilus PO 0929 Levofloxacin 500 MG DAILY 06/15 1015 AC 06/17 PO 0928 Methylprednisolone 40 MG Q8 06/14 1400 DC 06/16 IV 06/17 0000 2202 Midodrine 5 MG BID 06/11 2100 AC 06/17 PO 0929 Mirtazapine 15 MG QPM 06/11 2100 AC 06/16 PO 2202 Omeprazole 20 MG BID 06/11 2100 AC 06/17 PO 0929 Oxycodone/ 1 TAB 1700 PRN 06/14 1700 AC 06/16 Acetaminophen PO 1741 Oxycodone/ 1 TAB DAILY 06/14 1245 AC 06/17 Acetaminophen PO 0928 Prednisone 60 MG DAILY 06/17 0900 AC 06/17 PO 0927 Tamsulosin HCl 0.4 MG DAILY 06/11 1527 AC 06/17 PO 0933 Tizanidine HCl 4 MG QPM PRN 06/11 1530 AC 06/15 PO 1601 Last 24 Hrs of Lab/Franco Results Last 24 Hrs of Labs/Mics: Laboratory Tests 06/17/18 0627: PT 56.2 *H, INR 5.07 *H 06/16/18 1535: HIV 1&2 Ab Western Blot NONREACTIVE Assessment/Plan Assessment: 72 year old male with a PMH significant for COPD, afib, lung cancer sp right upper lobectomy 7 years ago with one year of chemo and radiation, vascular disease sp AAA repair also 7 years ago, afib with implanted loop recorder on Coumadin, that is BIBA for complaints of dyspnea and altered mental status. The patient has been apparently deteriorating over the past couple months, with mild cough with brownish/reddish sputum, on and off dizziness and blurriness of the eyes, and more recently, confusion and unsteadiness on his feet. The patient has also recently had uncontrolled bleeding. He is on Coumadin 4 mg daily and as per his , his pills have been mixed up recently and he may have taken more than the doses been prescribed. The patient was found in the field to be hypoxic and was placed on supplemental oxygen. He was given Solu-Medrol as well as the field. The patient sees a PCP and spare hand in [place], phone numbers in the HPI. Of note, patient is severely allergic to penicillin, has anaphylactic reaction. Vitals in the urgency room were temperature 101.2 which decreased to 99, heart rate 102 which decreased to 90s, respiratory rate 24, blood pressure 125/56, 91% oxygen saturation on 4 L nasal cannula which was tapered down to 2 L, 94% oxygen saturation. Labs showed a WBC count of 9.4 with bandemia, hemoglobin 11.4, no old labs available, creatinine 1.4, BNP 2370, negative troponin, INR 8.09 with repeat INR of 8.43 Chest x-ray showed evidence of remote right upper lobectomy, upper half right hemithorax completely opacified which signifies plural effusion or fibrotic changes or tumor recurrence. Additionally seen was left lower lobe opacity. EKG showed a rate of 100 with a QTC of 470 and flipped P waves significant for ectopic atrial beats. In the ED, patient had blood cultures 2 taken and got 1 dose of moxifloxacin. 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 Chest x-ray shows evidence of pneumonia as well as potential recurrence of cancer/pleural effusionfibrotic changes. The patient was septic with an elevated heart rate and temperature up to 102 on admission with a suspected source of infection being the lung. -Hemoptysis: Patient had 1 episode of hemoptysis with about a teaspoon of blood produced. He recently had brownish reddish sputum for the past few weeks. -Supratherapeutic INR: Patient usually takes 4 mg of warfarin every day was found to have INR over 8 on admission. -Altered mental status and falls: Patient recently had unsteadiness on his feet , confusion, poor memory, and a fall out of bed. -History of lung cancer: Right upper lobe lobectomy 7 years ago with chemotherapy and radiation for 1 year. The patient has not followed up with an oncologist for several years. -Dysphagia: Patient notices difficulty in swallowing pills, no issues with swallowing food or drink. -History of A. fib with implanted loop recorder: Patient sees a spare hand and EP down in [place], has an appointment with them in about one month. The patient is on warfarin for anticoagulation and amiodarone. He also has implantable loop recorder. Plan -We transferred the patient to telemetry for continuous pulse ox monitoring as well as cardiac monitoring as he acutely decompensated over the weekend -Chest x-ray done during the weekend after decompensation was largely unchanged from prior. Troponins negative EKGs no evidence of ACS, BNP unchanged. -Patient respiratory cultures returned positive for Enterobacter and stenotrophomonas that was sensitive namely to Levaquin. Moxifloxacin would likely cover these bugs but over the weekend antibiotic coverage was switched to Levaquin 500 mg daily. WBC today is 11.8 down from 14.2 yesterday, -Solu-Medrol 40 mg every 8 will be tapered to 60 mg of prednisone tomorrow as per pulmonology request -For the patient's acute kidney injury we gave 1 bag of normal saline to good effect on admission and have not had any problems since. -Echocardiogram done over the weekend showed stage II diastolic dysfunction and an ejection fraction of 55%. -Patient's loop recorder was interrogated last week and showed previous pauses and bouts of A. fib in early May, nothing recently. These were found while patient was on 200 mg twice a day of amiodarone. We decreased the patient's amiodarone dose because of potential pulmonary toxicity that has occurred from twice daily to once a day. However now for further concern, we will stop amiodarone. We will defer to cardiology to consider MultAQ or another rhythm medication. -On admission we ordered CT head without contrast as patient has supratherapeutic INR and did fall earlier prior to admission. It showed no acute intracranial abnormality. -On admission we ordered CT of the chest without contrast as patient has a history of lung cancer, recurrent hemoptysis, and question of recurrence of mass on his chest x-ray. CT chest showed dense fibrosis and volume loss in the superior segments of the right lower and middle lobes near the apex of the right hemithorax consistent with prior radiation. No superimposed lesions were found. Also found was patchy multifocal groundglass airspace opacities with small consolidative/solid components possibly due to multifocal pneumonia or multifocal adenocarcinoma in situ. There are finally areas of subtle interlobular septal thickening suggesting early fibrotic change also likely related to prior asbestos exposure. We are treating the patient for the pneumonia and he will likely require a repeat CT scan after 4-6 weeks to evaluate for any cancer recurrence. Patient had a repeat CT, CTA this weekend when he acutely decompensated and it showed extensive airspace disease through the left lung that was worsened from his CT 3 days prior. -Urine Legionella and strep negative -CBC was stable despite patient's hemoptysis. Patient is currently back on his blood thinning medications Coumadin and aspirin as he has no longer had episodes of hemoptysis. -We gave vitamin K for admission INR of 8.43 and INR decreased to less than 2 last week. Patient was dosed his normal 4 mg warfarin dose and INR was still less than 2. Over the weekend we gave 5 mg of warfarin and patient's INR is now 3.42. We will hold Coumadin today and recheck INR in the morning. -Patient was cleared with swallow evaluation but CT scan showed reflux of food into the upper esophagus. Speech and swallow suggested normal diet but taking pills with apple sauce. Patient will need to follow-up with electrical and instrumentation mechanic when he is back in [place]. -Physical therapy consult as patient has had recent unsteadiness on his feet. -Patient will need follow up with his doctor as he was found to have low TSH and T3 indicative of amiodarone effects. He will need follow up LFTs and TFTs q3-6 months if he is put back on amiodarone. -Additionally carotid ultrasound showed hemodynamically significant stenosis in left external carotid artery and he will need to follow up with his PCP for a vascular consult one he arrives back in [place]. Full Code Heart healthy diet DVT prophylaxis with Alps and coumadin Problem List: 1. Supratherapeutic INR 2. COPD (chronic obstructive pulmonary disease) 3. Paroxysmal A-fib 4. Acute respiratory failure with hypoxia 5. Swallowing difficulty Pain Ratin Pain Location: NA Pain Goal: Remain pain free Pain Plan: NA Tomorrow's Labs & Rationales: INR CBC Consulting Request: Consulting Physician: Dr. Ann, Pulmonary Dr. Gamble, Cardiology Dr. Cifuentes, [place] Reason for Consult: Pneumonia, respiratory failure, PAF Elan Murrell 06/17/18 1346: Attending MD Review Statement Attending Statement Attending MD Statement: examined this patient, discuss w/resident/PA/ELECTRIC WELDER HELPER, agreed w/resident/PA/ELECTRIC WELDER HELPER, discussed with family, reviewed EMR data (avail), discussed with nursing, discussed with case mgmt Attending Assessment/Plan: Acute hypoxic resp failure in pt with previous lung cancer s/p rt upper lobectomy and chemo and radiation with underlying copd. pt will be switched to po steroids starting today and will be cont on levofloxacin for now. will see how he does . will try to wean him off the oxygen. dced amiodarone due to potential for lung toxicity. Supratherapeutic INR- will hold coumadin. pt had mild hemoptysis this am. will monitor closely. dw/ pt and pts family at bedside the care plan.
[2018-06-17 08:28] LABS: PT 56.2 SEC (9.4-12.5)
--- NOTE | 2018-06-17 11:37 | PN- Infect Dx ---
Subjective Subjective: Afebrile on steroids. He feels improved with decreased shortness of breath, now on nasal oxygen. Objective Last 24 Hrs of Vital Signs/I&O Vital Signs Date Time Temp Pulse Resp B/P B/P Pulse O2 O2 Flow FiO2 Mean Ox Delivery Rate 06/17 1030 90 Nasal 5.0L Cannula 06/17 1000 97.8 87 22 108/64 06/17 0933 85 118/64 06/17 0843 94 Nasal 50% Cannula 06/17 0800 Nasal 8L Cannula 06/17 0800 97.9 74 18 98/62 06/17 0706 98.3 70 18 110/56 92 Non ReBreather 06/17 0058 97 Nasal 50% Cannula 06/16 2222 97.9 90 20 106/60 06/16 2201 97.9 94 20 106/60 94 Nasal Cannula 06/16 1655 91 Nasal 50% Cannula 06/16 1600 Nasal Cannula 06/16 1518 98.2 86 20 110/60 91 Intake & Output 06/17 1600 06/17 0800 06/17 0000 Intake Total 220 250 Output Total 1625 Balance 220 -1375 Intake, Oral 220 250 Output, Urine 1625 Patient 218 lb Weight Weight Bed scale Measurement Method Physical Exam Other Physical Findings: He appears comfortable, on nasal oxygen, in no acute distress Lungs are clear Heart regular rhythm with no murmur Extremities no cyanosis, clubbing or edema Results Last 24 Hours of Lab Results: Laboratory Tests 06/17 06/16 0627 1535 Coagulation PT (9.4 - 12.5 SEC) 56.2 *H INR (0.90 - 1.17) 5.07 *H Serology HIV 1&2 Ab Western Blot (NONREACTIVE) NONREACTIVE Last 24 Hours of Franco Results: No recent cultures Assessment/Plan ID Impression: Continues to improve, with temperatures remaining normal (on steroids), white blood cell count yesterday further decreased and decreasing oxygen requirements, on Levofloxacin, Day 3 of treatment for presumed left lung pneumonia secondary to Enterobacter and Stenotrophomonas, both of which were isolated from a recent sputum culture. Suggestion: 1. Continue steroid taper per Pulmonary 2. Continue Levofloxacin to complete a 7-day course
--- NOTE | 2018-06-17 19:02 | PN- Pulmonary ---
Subjective HPI/Critical Care Issues: Improved Down to 5 litres Objective Current Medications: Current Medications Sig/Mark Start time Last Medication Dose Route Stop Time Status Admin Albuterol Sulfate 3 ML EVERY 4 HRS/AWAKE 06/14 1600 AC 06/17 INH 1540 Albuterol Sulfate 2 PUF Q4-6 PRN PRN 06/11 1530 AC INH Aspirin 81 MG DAILY 06/15 0900 AC 06/17 PO 0926 Cholecalciferol 1,000 IU DAILY 06/12 1123 AC 06/17 PO 0929 Clonazepam 0.5 MG DAILY 06/11 1525 AC 06/17 PO 06/18 1524 0933 Cyanocobalamin 1,000 MCG DAILY 06/12 1456 AC 06/17 PO 0929 Gabapentin 600 MG BID 06/11 2100 AC 06/17 PO 0927 Guaifenesin 600 MG Q12 06/13 2100 AC 06/17 PO 0927 Lactobacillus 1 CAP DAILY 06/13 1215 AC 06/17 Acidophilus PO 0929 Levofloxacin 500 MG DAILY 06/15 1015 AC 06/17 PO 0928 Methylprednisolone 40 MG Q8 06/14 1400 DC 06/16 IV 06/17 0000 2202 Midodrine 5 MG BID 06/11 2100 AC 06/17 PO 0929 Mirtazapine 15 MG QPM 06/11 2100 AC 06/16 PO 2202 Omeprazole 20 MG BID 06/11 2100 AC 06/17 PO 0929 Oxycodone/ 1 TAB 1700 PRN 06/14 1700 AC 06/17 Acetaminophen PO 1750 Oxycodone/ 1 TAB DAILY 06/14 1245 AC 06/17 Acetaminophen PO 0928 Prednisone 60 MG DAILY 06/17 0900 AC 06/17 PO 0927 Tamsulosin HCl 0.4 MG DAILY 06/11 1527 AC 06/17 PO 0933 Tizanidine HCl 4 MG QPM PRN 06/11 1530 AC 06/15 PO 1601 Vital Signs & I&O Last 24 Hrs of Vitals and I&O: Vital Signs Date Time Temp Pulse Resp B/P B/P Pulse O2 O2 Flow FiO2 Mean Ox Delivery Rate 06/17 1800 97.8 95 20 118/62 06/17 1541 92 Nasal 5.0L Cannula 06/17 1422 98.6 88 20 130/50 96 Nasal 5.0L Cannula 06/17 1400 97.9 83 20 102/60 06/17 1200 97.8 78 20 106/58 06/17 1030 90 Nasal 5.0L Cannula 06/17 1000 97.8 87 22 108/64 06/17 0933 85 118/64 06/17 0843 94 Nasal 50% Cannula 06/17 0800 Nasal 8L Cannula 06/17 0800 97.9 74 18 98/62 06/17 0706 98.3 70 18 110/56 92 Non ReBreather 06/17 0058 97 Nasal 50% Cannula 06/16 2222 97.9 90 20 106/60 06/16 2201 97.9 94 20 106/60 94 Nasal Cannula Intake & Output 06/17 1600 06/17 0800 06/17 0000 Intake Total 760 220 250 Output Total 500 1625 Balance 260 220 -1375 Intake, IV 10 Intake, Oral 750 220 250 Output, Urine 500 1625 Patient 218 lb Weight Weight Bed scale Measurement Method Impression/Plan Impression/Plan Impression/Plan: CTA IMPRESSION: 1. No CT evidence for acute pulmonary embolism. 2. Status post right upper lobectomy. Enhancement of the soft tissue at the level of the right lung apex. While this may represent granulation tissue in the postoperative setting of possible of locally recurrent malignancy should be additionally considered. 3. Extensive airspace disease throughout the left lung, worsened compared to the CT from 3 days prior. Differential diagnostic considerations would include infectious etiologies versus background edema. Multifocal adenocarcinoma can also have this appearance. 4. 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 5. 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 VTE: negative DICTATED BY: Carmen Issa MD IMPRESSION 72-year-old male past medical history of COPD not on home oxygen, Locally advanced lung cancer status post right upper lobectomy xrt and chemo and treatment 7 years ago, AAA repair in the past and atrial fibrillation with a loop recorder. He is here from [place] visiting his daughter and for the past week has been having increasing shortness of breath. The family also feels he's been confused and mixing up his medications and generally feeling weak. They brought him in today because he fell out of bed and was having visible difficulty breathing. ISsues Resolving Acute hypoxic resp failiure over the week end due to CHF vs worsening amiodarone lung injury in a pt with following issues * Bilateral pulm infiltrates consistant with multilobar pna (with enterobacter and S. 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, now better * History of locally advanced Lung ca 6 yrs ago with rt upperlobectomy followed by xrt and chemo now with evidence of dense fibrosis in the rt middle lobe and volume loss * COPD with mild wheezing with mild copd exacerbation, with ongoing smoking * Hypoxic resp failure now improving * Pleural thickening and evidence of pulm fibrosis needs longitudinal follow up * Esophageal thickening with reflux with dysphagia -barium swallow reviewed, MBS showed no sig aspriation risk - needs follow up eval * Pafib with Inital supratherapeutic inr now with very mild hemoptysis (prob related to pulm infiltrate), now with sinus rhythm prob - Inr trending down * Elevated BNP high risk for chf * Gait imbalance and recent memory loss - needs eval- * Sig B12 def noted by blood work needs b12 injections followed by high dose po/ vit d def noted * GEO resolved * Near syncope and a fall initially REC Cont abx levo for 7 days One dose of iv lasix today 40 mg Prednisone 60 mg with a slow taper over 3-4 weeks
[2018-06-18 06:29] VITALS: BP 126/60
--- NOTE | 2018-06-18 07:32 | PN- Housestaff ---
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 He states that he feels good. He is continuing to require high amounts of oxygen and is saturating 92% on 5 L this morning. All other vitals are stable. The patient apparently last night was requiring assistance to to walk so we have reconsulted with physical therapy for new suggestions. Patient has no other complaints and is very eager to leave. Patient is still longer having any hemoptysis, cough has greatly decreased. Review of Systems Constitutional: Reports: no symptoms. EENTM: Reports: no symptoms. Cardiovascular: Reports: no symptoms. Respiratory: Reports: short of breath. Gastrointestinal: Reports: no symptoms. Genitourinary: Reports: no symptoms. Musculoskeletal: Reports: no symptoms. Skin: Reports: no symptoms. Neurological/Psychological: Reports: no symptoms. Hematologic/Endocrine: Reports: no symptoms. Objective Last 24 Hrs of Vital Signs/I&O Vital Signs Date Time Temp Pulse Resp B/P B/P Pulse O2 O2 Flow FiO2 Mean Ox Delivery Rate 06/18 1541 98.2 83 20 120/60 93 Nasal 4.0L Cannula 06/18 1508 70 06/18 1200 90 06/18 0826 94 06/18 0826 95 Nasal 5.0L Cannula 06/18 0822 128/66 06/18 0753 92 Nasal 5.0L Cannula 06/18 0629 98.1 74 22 126/60 92 Nasal Cannula 06/18 0000 76 22 06/17 2208 98.7 91 22 144/66 93 06/17 2200 92 06/17 2042 Nasal 5.0L Cannula 06/17 2000 90 112/60 06/17 1800 97.8 95 20 118/62 Intake & Output 06/18 1600 06/18 0800 06/18 0000 Intake Total 400 200 480 Output Total 1123 628 6894 Balance -650 -325 -1045 Intake, IV Intake, Oral 400 200 480 Number 0 Bowel Movements Output, Urine 8313 [id number] Patient 218 lb Weight Physical Exam General Appearance: Alert, Oriented X3, Cooperative, No Acute Distress Skin: No Rashes, No Breakdown, No Significant Lesion Skin Temp/Moisture Exam: Warm/Dry Sepsis Skin Exam (color): Normal for Ethnicity HEENT: Atraumatic, PERRLA, EOMI, Mucous Membr. moist/pink Neck: Supple, No JVD Cardiovascular: Regular Rate, Normal S1, Normal S2, No Murmurs Lungs: Clear to Auscultation Abdomen: Normal Bowel Sounds, Soft, No Tenderness Neurological: Normal Speech Extremities: No Clubbing, No Cyanosis, No Edema Current Medications: Current Medications Sig/Mark Start time Last Medication Dose Route Stop Time Status Admin Albuterol Sulfate 3 ML EVERY 4 HRS/AWAKE 06/14 1600 AC 06/18 INH 1137 Albuterol Sulfate 2 PUF Q4-6 PRN PRN 06/11 1530 AC INH Aspirin 81 MG DAILY 06/15 0900 AC 06/18 PO 0822 Cholecalciferol 1,000 IU DAILY 06/12 1123 AC 06/18 PO 0823 Clonazepam 0.5 MG DAILY 06/11 1525 DC 06/18 PO 06/18 1524 0823 Cyanocobalamin 1,000 MCG DAILY 06/12 1456 AC 06/18 PO 0823 Furosemide 40 MG ONCE ONE 06/18 1445 DC 06/18 IV 06/18 1446 1524 Furosemide 40 MG ONCE ONE 06/17 1915 DC 06/17 IV 06/17 1916 1943 Gabapentin 600 MG BID 06/11 2100 AC 06/18 PO 0822 Guaifenesin 600 MG Q12 06/13 2100 AC 06/18 PO 0822 Lactobacillus 1 CAP DAILY 06/13 1215 AC 06/18 Acidophilus PO 0828 Levofloxacin 500 MG DAILY 06/15 1015 AC 06/18 PO 0823 Midodrine 5 MG BID 06/11 2100 AC 06/18 PO 0822 Mirtazapine 15 MG QPM 06/11 2100 AC 06/17 PO 2259 Omeprazole 20 MG BID 06/11 2100 AC 06/18 PO 0828 Oxycodone/ 1 TAB 1700 PRN 06/14 1700 AC 06/17 Acetaminophen PO 1750 Oxycodone/ 1 TAB DAILY 06/14 1245 AC 06/18 Acetaminophen PO 0823 Prednisone 60 MG DAILY 06/17 0900 AC 06/18 PO 0822 Sodium Chloride 2 SPRAY Q4P PRN 06/18 1330 AC DRU Tamsulosin HCl 0.4 MG DAILY 06/11 1527 AC 06/18 PO 0822 Tizanidine HCl 4 MG QPM PRN 06/11 1530 AC 06/15 PO 1601 Last 24 Hrs of Lab/Franco Results Last 24 Hrs of Labs/Mics: Laboratory Tests 06/18/18 1240: Anion Gap 10, Estimated GFR > 60, BUN/Creatinine Ratio 40.0 H 06/18/18 0606: PT 50.3 *H, INR 4.54 *H, CBC w Diff NO MAN DIFF REQ, RBC 3.90 L, MCV 89.5, MCH 29.5, MCHC 33.0, RDW 18.2 H, MPV 7.9, Gran % 85.0 H, Lymphocytes % 8.6 L, Monocytes % 6.4, Eosinophils % 0, Basophils % 0, Absolute Granulocytes 10.1 H, Absolute Lymphocytes 1.0 L, Absolute Monocytes 0.8 H, Absolute Eosinophils 0, Absolute Basophils 0 Assessment/Plan Assessment: 72 year old male with a PMH significant for COPD, afib, lung cancer sp right upper lobectomy 7 years ago with one year of chemo and radiation, vascular disease sp AAA repair also 7 years ago, afib with implanted loop recorder on Coumadin, that is BIBA for complaints of dyspnea and altered mental status. The patient has been apparently deteriorating over the past couple months, with mild cough with brownish/reddish sputum, on and off dizziness and blurriness of the eyes, and more recently, confusion and unsteadiness on his feet. The patient has also recently had uncontrolled bleeding. He is on Coumadin 4 mg daily and as per his , his pills have been mixed up recently and he may have taken more than the doses been prescribed. The patient was found in the field to be hypoxic and was placed on supplemental oxygen. He was given Solu-Medrol as well as the field. The patient sees a PCP and reflector driller and deburrer in [place], phone numbers in the HPI. Of note, patient is severely allergic to penicillin, has anaphylactic reaction. Vitals in the urgency room were temperature 101.2 which decreased to 99, heart rate 102 which decreased to 90s, respiratory rate 24, blood pressure 125/56, 91% oxygen saturation on 4 L nasal cannula which was tapered down to 2 L, 94% oxygen saturation. Labs showed a WBC count of 9.4 with bandemia, hemoglobin 11.4, no old labs available, creatinine 1.4, BNP 2370, negative troponin, INR 8.09 with repeat INR of 8.43 Chest x-ray showed evidence of remote right upper lobectomy, upper half right hemithorax completely opacified which signifies plural effusion or fibrotic changes or tumor recurrence. Additionally seen was left lower lobe opacity. EKG showed a rate of 100 with a QTC of 470 and flipped P waves significant for ectopic atrial beats. In the ED, patient had blood cultures 2 taken and got 1 dose of moxifloxacin. 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 Chest x-ray shows evidence of pneumonia as well as potential recurrence of cancer/pleural effusionfibrotic changes. The patient was septic with an elevated heart rate and temperature up to 102 on admission with a suspected source of infection being the lung. -Hemoptysis: Patient had 1 episode of hemoptysis with about a teaspoon of blood produced. He recently had brownish reddish sputum for the past few weeks. -Supratherapeutic INR: Patient usually takes 4 mg of warfarin every day was found to have INR over 8 on admission. -Altered mental status and falls: Patient recently had unsteadiness on his feet , confusion, poor memory, and a fall out of bed. -History of lung cancer: Right upper lobe lobectomy 7 years ago with chemotherapy and radiation for 1 year. The patient has not followed up with an oncologist for several years. -Dysphagia: Patient notices difficulty in swallowing pills, no issues with swallowing food or drink. -History of A. fib with implanted loop recorder: Patient sees a reflector driller and deburrer and EP down in [place], has an appointment with them in about one month. The patient is on warfarin for anticoagulation and amiodarone. He also has implantable loop recorder. Plan -We transferred the patient to telemetry for continuous pulse ox monitoring as well as cardiac monitoring as he acutely decompensated over the past weekend -Chest x-ray done during the weekend after decompensation was largely unchanged from prior. Troponins negative EKGs no evidence of ACS, BNP unchanged. -Patient respiratory cultures returned positive for Enterobacter and stenotrophomonas that was sensitive namely to Levaquin. Moxifloxacin would likely cover these bugs but over the weekend antibiotic coverage was switched to Levaquin 500 mg daily. We will continue this for 3 more days after today. -Plan per pulmonology is to do a slow taper of patient's 60 mg prednisone for 5 days followed by 50 mg for 5 days, 40 for 5 days, 30 for 5 days, 20 for 5 days, 10 for 5 days, 5 for 5 days and then stop. If BEP today shows a stable creatinine, we will give another dose of IV Lasix 40 mg. -For the patient's acute kidney injury we gave 1 bag of normal saline to good effect on admission and have not had any problems since. -Echocardiogram done over the weekend showed stage II diastolic dysfunction and an ejection fraction of 55%. -Patient's loop recorder was interrogated last week and showed previous pauses and bouts of A. fib in early May, nothing recently. These were found while patient was on 200 mg twice a day of amiodarone. We decreased the patient's amiodarone dose because of potential pulmonary toxicity that has occurred from twice daily to once a day. However now for further concern, we will stop amiodarone. We will defer to cardiology to consider MultAQ or another rhythm medication. -On admission we ordered CT head without contrast as patient has supratherapeutic INR and did fall earlier prior to admission. It showed no acute intracranial abnormality. -On admission we ordered CT of the chest without contrast as patient has a history of lung cancer, recurrent hemoptysis, and question of recurrence of mass on his chest x-ray. CT chest showed dense fibrosis and volume loss in the superior segments of the right lower and middle lobes near the apex of the right hemithorax consistent with prior radiation. No superimposed lesions were found. Also found was patchy multifocal groundglass airspace opacities with small consolidative/solid components possibly due to multifocal pneumonia or multifocal adenocarcinoma in situ. There are finally areas of subtle interlobular septal thickening suggesting early fibrotic change also likely related to prior asbestos exposure. We are treating the patient for the pneumonia and he will likely require a repeat CT scan after 4-6 weeks to evaluate for any cancer recurrence. Patient had a repeat CT, CTA this weekend when he acutely decompensated and it showed extensive airspace disease through the left lung that was worsened from his CT 3 days prior. -Urine Legionella and strep negative -CBC was stable despite patient's hemoptysis. Patient is currently back on his blood thinning medications Coumadin and aspirin as he has no longer had episodes of hemoptysis. -We gave vitamin K for admission INR of 8.43 and INR decreased to less than 2 last week. Patient was dosed his normal 4 mg warfarin dose and INR was still less than 2. Over the weekend we gave 5 mg of warfarin and patient's INR increased to 3.42 and then to 5.07 so we held Coumadin. Today's INR is 4.54 and we will continue to hold Coumadin. -Patient was cleared with swallow evaluation but CT scan showed reflux of food into the upper esophagus. Speech and swallow suggested normal diet but taking pills with apple sauce. Patient will need to follow-up with mixing machine tender cork gasket when he is back in [place]. -Physical therapy consult as patient has had recent unsteadiness on his feet overnight and required an assist of 2. Today on evaluation he is better and PT is recommending rolling walker at home and 2-3 times of physical therapy per week. -Patient will need follow up with his doctor as he was found to have low TSH and T3 indicative of amiodarone effects. He will need follow up LFTs and TFTs q3-6 months if he is put back on amiodarone. -Carotid ultrasound showed hemodynamically significant stenosis in left external carotid artery and he will need to follow up with his PCP for a vascular consult one he arrives back in [place]. Full Code Heart healthy diet DVT prophylaxis with Alps and coumadin Problem List: 1. Acute respiratory failure with hypoxia Pain Ratin Pain Location: na Pain Goal: Remain pain free Pain Plan: na Tomorrow's Labs & Rationales: na Consulting Request: Consulting Physician: Dr. Ann, Pulmonary Dr. Gamble, Cardiology Dr. Cifuentes, [place] Reason for Consult: Pneumonia, respiratory failure, PAF Jose Murrellerrol 06/18/18 1229: Attending Review Statement Attending Statement Attending MD Statement: examined this patient, discuss w/resident/PA/[facility], agreed w/resident/PA/[facility], reviewed EMR data (avail), discussed with nursing, discussed with case mgmt Attending Assessment/Plan: Pneumonia/ Acute hypoxic resp failure- appreciated pulm recommendations. plan is to taper off oxygen. Prednisone will be slowly tapered. Supratherapeutic INR- plan to hold coumadin for now. Repeat BEP and if ok will give another dose of lasix.
[2018-06-18] MEDS ORDERED: LEVAQUIN500 M1 PO (07:50)
[2018-06-18 07:56] LABS: ABSOLUTE BASOPHIL COUNT 0 /CUMM (0.0-0.2); ABSOLUTE EOSINOPHIL COUNT 0 /CUMM (0.0-0.7); ABSOLUTE GRANULOCYTE CT 10.1 /CUMM (1.4-6.5); ABSOLUTE MONOCYTE COUNT 0.8 /CUMM (0.10-0.60); BASOPHIL % 0 % (0.0-2.0); EOSINOPHIL % 0 % (0-5); HEMATOCRIT 34.9 % (42-52); MEAN CORPUSCULAR HGB 29.5 PG (27.0-31.0); MEAN CORPUSCULAR VOLUME 89.5 FL (80.0-94.0); MEAN PLATELET VOLUME 7.9 FL (7.4-10.4); PLATELET COUNT 314 /CUMM (130-400); RBC DISTRIBUTION WIDTH 18.2 % (11.5-14.5)
[2018-06-18 08:38] LABS: PT 50.3 SEC (9.4-12.5)
[2018-06-18 09:38] LABS: WHITE BLOOD CELL COUNT 11.8 /CUMM (4.8-10.8)
--- NOTE | 2018-06-18 10:21 | PN- Pulmonary ---
Subjective HPI/Critical Care Issues: Slowly improving afebrile No further cough Objective Current Medications: Current Medications Sig/Mark Start time Last Medication Dose Route Stop Time Status Admin Albuterol Sulfate 3 ML EVERY 4 HRS/AWAKE 06/14 1600 AC 06/18 INH 0752 Albuterol Sulfate 2 PUF Q4-6 PRN PRN 06/11 1530 AC INH Aspirin 81 MG DAILY 06/15 0900 AC 06/18 PO 0822 Cholecalciferol 1,000 IU DAILY 06/12 1123 AC 06/18 PO 0823 Clonazepam 0.5 MG DAILY 06/11 1525 AC 06/18 PO 06/18 1524 0823 Cyanocobalamin 1,000 MCG DAILY 06/12 1456 AC 06/18 PO 0823 Furosemide 40 MG ONCE ONE 06/17 1915 DC 06/17 IV 06/17 1916 194 Gabapentin 600 MG BID 06/11 2100 AC 06/18 PO 0822 Guaifenesin 600 MG Q12 06/13 2100 AC 06/18 PO 0822 Lactobacillus 1 CAP DAILY 06/13 1215 AC 06/18 Acidophilus PO 0828 Levofloxacin 500 MG DAILY 06/15 1015 AC 06/18 PO 0823 Midodrine 5 MG BID 06/11 2100 AC 06/18 PO 0822 Mirtazapine 15 MG QPM 06/11 2100 AC 06/17 PO 2259 Omeprazole 20 MG BID 06/11 2100 AC 06/18 PO 0828 Oxycodone/ 1 TAB 1700 PRN 06/14 1700 AC 06/17 Acetaminophen PO 1750 Oxycodone/ 1 TAB DAILY 06/14 1245 AC 06/18 Acetaminophen PO 0823 Prednisone 60 MG DAILY 06/17 0900 AC 06/18 PO 0822 Tamsulosin HCl 0.4 MG DAILY 06/11 1527 AC 06/18 PO 0822 Tizanidine HCl 4 MG QPM PRN 06/11 1530 AC 06/15 PO 1601 Vital Signs & I&O Last 24 Hrs of Vitals and I&O: Vital Signs Date Time Temp Pulse Resp B/P B/P Pulse O2 O2 Flow FiO2 Mean Ox Delivery Rate 06/18 0826 94 06/18 0826 95 Nasal 5.0L Cannula 06/18 0822 128/66 06/18 0753 92 Nasal 5.0L Cannula 06/18 0629 98.1 74 22 126/60 92 Nasal Cannula 06/18 0000 76 22 07/17 2208 98.7 91 22 144/66 93 06/17 2200 92 06/17 2042 Nasal 5.0L Cannula 06/17 2000 90 112/60 06/17 1800 97.8 95 20 118/62 06/17 1541 92 Nasal 5.0L Cannula 06/17 1422 98.6 88 20 130/50 96 Nasal 5.0L Cannula 06/17 1400 97.9 83 20 102/60 06/17 1200 97.8 78 20 106/58 06/17 1030 90 Nasal 5.0L Cannula Intake & Output 06/18 1600 06/18 0800 06/18 0000 Intake Total 200 480 Output Total 525 1525 Balance -325 -1045 Intake, IV Intake, Oral 200 480 Number 0 Bowel Movements Output, Urine 525 1525 Patient 218 lb Weight Impression/Plan Impression/Plan Impression/Plan: CTA IMPRESSION: 1. No CT evidence for acute pulmonary embolism. 2. Status post right upper lobectomy. Enhancement of the soft tissue at the level of the right lung apex. While this may represent granulation tissue in the postoperative setting of possible of locally recurrent malignancy should be additionally considered. 3. Extensive airspace disease throughout the left lung, worsened compared to the CT from 3 days prior. Differential diagnostic considerations would include infectious etiologies versus background edema. Multifocal adenocarcinoma can also have this appearance. 4. 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 5. 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 VTE: negative DICTATED BY: Luis Manuel FRANKLIN,Carmen IMPRESSION 72-year-old male past medical history of COPD not on home oxygen, Locally advanced lung cancer status post right upper lobectomy xrt and chemo and treatment 7 years ago, AAA repair in the past and atrial fibrillation with a loop recorder. He is here from [place] visiting his daughter and for the past week has been having increasing shortness of breath. The family also feels he's been confused and mixing up his medications and generally feeling weak. They brought him in because he fell out of bed and was having visible difficulty breathing. ISsues Resolving Acute hypoxic resp failiure over the week end due to CHF vs worsening amiodarone lung injury in a pt with following issues * Bilateral pulm infiltrates consistant with multilobar pna (with enterobacter and S. 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, now better * History of locally advanced Lung ca 6 yrs ago with rt upperlobectomy followed by xrt and chemo now with evidence of dense fibrosis in the rt middle lobe and volume loss * COPD with mild wheezing with mild copd exacerbation, with ongoing smoking * Hypoxic resp failure now improving * Pleural thickening and evidence of pulm fibrosis needs longitudinal follow up * Esophageal thickening with reflux with dysphagia -barium swallow reviewed, MBS showed no sig aspriation risk - needs follow up eval * Pafib with Inital supratherapeutic inr now with very mild hemoptysis (prob related to pulm infiltrate), now with sinus rhythm prob - Inr trending down * Elevated BNP high risk for chf * Gait imbalance and recent memory loss - needs eval- * Sig B12 def noted by blood work needs b12 injections followed by high dose po/ vit d def noted * GEO resolved * Near syncope and a fall initially REC Cont abx levo for 7 days Check BMP today and if bun and creat is ok can give one dose of lasix iv today Prednisone 60 mg for five days then 5o x 5 / 40 x 5 / 30 for 5 / 20 x 5 then 10 for 5 and then 5 mg for 5 days Reduce oxygen to keep sat of 90-92 Increase activity Saline nasal spray and saline gel if we have it in the pharmacy for the nose Will follow
--- NOTE | 2018-06-18 11:03 | PN- Infect Dx ---
Subjective Subjective: Afebrile on steroids. He continues to feel well with no complaints Objective Last 24 Hrs of Vital Signs/I&O Vital Signs Date Time Temp Pulse Resp B/P B/P Pulse O2 O2 Flow FiO2 Mean Ox Delivery Rate 06/18 0826 94 06/18 0826 95 Nasal 5.0L Cannula 06/18 0822 128/66 06/18 0753 92 Nasal 5.0L Cannula 06/18 0629 98.1 74 22 126/60 92 Nasal Cannula 06/18 0000 76 22 06/17 2208 98.7 91 22 144/66 93 06/17 2200 92 06/17 2042 Nasal 5.0L Cannula 06/17 2000 90 112/60 06/17 1800 97.8 95 20 118/62 06/17 1541 92 Nasal 5.0L Cannula 06/17 1422 98.6 88 20 130/50 96 Nasal 5.0L Cannula 06/17 1400 97.9 83 20 102/60 06/17 1200 97.8 78 20 106/58 Intake & Output 06/18 1600 06/18 0800 06/18 0000 Intake Total 200 480 Output Total 525 1525 Balance -325 -1045 Intake, IV Intake, Oral 200 480 Number 0 Bowel Movements Output, Urine 525 1525 Patient 218 lb Weight Physical Exam Other Physical Findings: He appears comfortable in no acute distress Lungs scattered rhonchi bilaterally Heart regular rhythm with no murmur Extremities no cyanosis, clubbing or edema Results Last 24 Hours of Lab Results: Laboratory Tests 06/18 0606 Coagulation PT (9.4 - 12.5 SEC) 50.3 *H INR (0.90 - 1.17) 4.54 *H Hematology CBC w Diff NO MAN DIFF REQ WBC (4.8 - 10.8 /CUMM) 11.8 H RBC (4.70 - 6.10 /CUMM) 3.90 L Hgb (14.0 - 18.0 G/DL) 11.5 L Hct (42 - 52 %) 34.9 L MCV (80.0 - 94.0 FL) 89.5 MCH (27.0 - 31.0 PG) 29.5 MCHC (33.0 - 37.0 G/DL) 33.0 RDW (11.5 - 14.5 %) 18.2 H Plt Count (130 - 400 /CUMM) 314 MPV (7.4 - 10.4 FL) 7.9 Gran % (42.2 - 75.2 %) 85.0 H Lymphocytes % (20.5 - 51.1 %) 8.6 L Monocytes % (1.7 - 9.3 %) 6.4 Eosinophils % (0 - 5 %) 0 Basophils % (0.0 - 2.0 %) 0 Absolute Granulocytes (1.4 - 6.5 /CUMM) 10.1 H Absolute Lymphocytes (1.2 - 3.4 /CUMM) 1.0 L Absolute Monocytes (0.10 - 0.60 /CUMM) 0.8 H Absolute Eosinophils (0.0 - 0.7 /CUMM) 0 Absolute Basophils (0.0 - 0.2 /CUMM) 0 Last 24 Hours of Franco Results: No new cultures Assessment/Plan ID Impression: Doing well, with temperatures remaining normal (on steroids), white blood cell count decreased and requiring decreasing oxygen, on Levofloxacin, Day 4 of treatment for presumed left lung pneumonia secondary to Enterobacter and Stenotrophomonas, both of which were isolated from a recent sputum culture. Suggestion: 1. Steroid taper per Pulmonary 2. Continue Levofloxacin for 3 more days
[2018-06-18 15:41] VITALS: BP 120/60
--- NOTE | 2018-06-18 17:45 | PN- Cardiology ---
Subjective Subjective: Breathing continues to slowly improve. Remains on nasal O2 at 4 L. No chest discomfort, palpitations, lower extremity edema, etc. Objective Vital Signs and I&Os Vital Signs Date Time Temp Pulse Resp B/P B/P Pulse O2 O2 Flow FiO2 Mean Ox Delivery Rate 06/18 1702 80 06/18 1702 94 Nasal 5.0L Cannula 06/18 1632 95 Nasal 6.0L Cannula 06/18 1541 98.2 83 20 120/60 93 Nasal 4.0L Cannula 06/18 1508 70 06/18 1200 90 06/18 0826 94 06/18 0826 95 Nasal 5.0L Cannula 06/18 0822 128/66 06/18 0753 92 Nasal 5.0L Cannula 06/18 0629 98.1 74 22 126/60 92 Nasal Cannula 06/18 0000 76 22 06/17 2208 98.7 91 22 144/66 93 06/17 2200 92 06/17 2042 Nasal 5.0L Cannula 06/17 2000 90 112/60 06/17 1800 97.8 95 20 118/62 Intake & Output 06/18 1600 06/18 0800 06/18 0000 06/17 1600 06/17 0800 06/17 0000 Intake Total 400 200 480 760 220 250 Output Total 0673 129 0406 500 1625 Balance -650 -325 -1045 260 220 -1375 Intake, IV 10 Intake, Oral 400 200 480 750 220 250 Number 0 Bowel Movements Output, Urine 6813 559 4569 500 1625 Patient 218 lb 218 lb Weight Weight Bed scale Measurement Method Physical Exam: Well-developed, overweight elderly male in no acute distress with nasal oxygen in place. Vital signs: See above. HEENT: Normocephalic, atraumatic, EOMI, slightly dry mucous membranes. Neck: No JVD, bilateral carotid bruits versus transmitted systolic murmur right greater than left. Lungs: Decreased breath sounds bilaterally with occasional rhonchi. Heart: S1, S2 with grade 1-2/6 systolic murmur. No gallop or rub. PMI not well felt. Abdomen: Soft, nontender, positive bowel sounds. Extremities: No edema. Current Medications: Current Medications Sig/Mark Start time Last Medication Dose Route Stop Time Status Admin Albuterol Sulfate 3 ML EVERY 4 HRS/AWAKE 06/14 1600 AC 06/18 INH 1631 Albuterol Sulfate 2 PUF Q4-6 PRN PRN 06/11 1530 AC INH Aspirin 81 MG DAILY 06/15 0900 AC 06/18 PO 0822 Cholecalciferol 1,000 IU DAILY 06/12 1123 AC 06/18 PO 0823 Clonazepam 0.5 MG DAILY 06/11 1525 DC 06/18 PO 06/18 1524 0823 Cyanocobalamin 1,000 MCG DAILY 06/12 1456 AC 06/18 PO 0823 Furosemide 40 MG ONCE ONE 06/18 1445 DC 06/18 IV 06/18 1446 1524 Furosemide 40 MG ONCE ONE 06/17 1915 DC 06/17 IV 06/17 1916 1943 Gabapentin 600 MG BID 06/11 2100 AC 06/18 PO 0822 Guaifenesin 600 MG Q12 06/13 2100 AC 06/18 PO 0822 Lactobacillus 1 CAP DAILY 06/13 1215 AC 06/18 Acidophilus PO 0828 Levofloxacin 500 MG DAILY 06/15 1015 AC 06/18 PO 0823 Midodrine 5 MG BID 06/11 2100 AC 06/18 PO 0822 Mirtazapine 15 MG QPM 06/11 2100 AC 06/17 PO 2259 Omeprazole 20 MG BID 06/11 2100 AC 06/18 PO 0828 Oxycodone/ 1 TAB 1700 PRN 06/14 1700 AC 06/18 Acetaminophen PO 1642 Oxycodone/ 1 TAB DAILY 06/14 1245 AC 06/18 Acetaminophen PO 0823 Prednisone 60 MG DAILY 06/17 0900 AC 06/18 PO 0822 Sodium Chloride 2 SPRAY Q4P PRN 06/18 1330 AC DRU Tamsulosin HCl 0.4 MG DAILY 06/11 1527 AC 06/18 PO 0822 Tizanidine HCl 4 MG QPM PRN 06/11 1530 AC 06/15 PO 1601 Results Last 48 Hrs of Labs/Mics: Laboratory Tests 06/18/18 1240: Anion Gap 10, Estimated GFR > 60, BUN/Creatinine Ratio 40.0 H 06/18/18 0606: PT 50.3 *H, INR 4.54 *H, CBC w Diff NO MAN DIFF REQ, RBC 3.90 L, MCV 89.5, MCH 29.5, MCHC 33.0, RDW 18.2 H, MPV 7.9, Gran % 85.0 H, Lymphocytes % 8.6 L, Monocytes % 6.4, Eosinophils % 0, Basophils % 0, Absolute Granulocytes 10.1 H, Absolute Lymphocytes 1.0 L, Absolute Monocytes 0.8 H, Absolute Eosinophils 0, Absolute Basophils 0 06/17/18626: PT 56.2 *H, INR 5.07 *H Assessment/Plan Assessment/Plan [id number] w/ hx of very heavy tob use (3 ppd x 50+ yrs), COPD, lung ca s/p RUL lobectomy ~2012 w/ f/u chemo & radiation Rx, vasc disease s/p open AAA repair ~ 2010, previously Rx'd HLD, CAD s/p PCI/stenting, & PAF on amio/warfarin s/p LINQ recorder who presented to the ED on 06/11/2018 w/ AMS, SOB, cough productive of brown sputum, following a witnessed fall from bed from which he could not get up and who was found to be hypoxemic and febrile w/ a left shift on his WBC count, GEO, supratherapeutic INR, abnormal CXR/chest CT etc. c/w multilobar pneumonia w/ decompensation 2/2 diastolic HF, amiodarone toxicity, recurrent ca. Given concerns from pulmonary medicine about amiodarone toxicity and the fact that he had documented "breakthrough" of AF on his LINQ recorder, although relatively brief, the amiodarone was discontinued. He also was diuresed and his clinical status has improved. Unfortunately, there are not many good alternatives to the amiodarone, given his CAD, initial GEO, etc. Interrogation of the [employer] LINQ recorder on 06/12/2018 revealed: Several episodes of bradycardia with pauses on 05/12/2018 with the 2 longest pause of ~ 3.0 seconds duration, one episode of atrial fibrillation on 05/11/2018 w/ a median ventricular rate of ~120 bpm that lasted ~24 min., no device recorded episodes since 05/12/2018, and no correlation between symptomatic episodes and dysrhythmic events. Recommendations: * Given the recurrent AF, prudent to maintain him on full AC, but note supratherapeutic INR at 4.54. Continue to hold warfarin and follow-up INR closely. Check LFTs which can be added to this a.m. his blood work. * Consider repeat CXR, given continued high O2 requirements. * DVT prophylaxis being addressed. Continue telemetry? Yes
--- NOTE | 2018-06-18 21:20 | RADIOLOGY REPORT ---
EXAMINATION: XR PORTABLE CHEST CLINICAL INFORMATION: Shortness of breath. Increased oxygen requirement. History of lung cancer. COMPARISON: Chest x-ray 06/14/2018. CT chest 06/14/2018 TECHNIQUE: Portable frontal view of the chest was obtained. 8:55 PM FINDINGS: Chronic change of the right hemithorax with volume loss and dense focal consolidation at the upper hemithorax. Inferior right lung is normally aerated. The left lung is clear. No pulmonary vascular congestion. No pleural effusion. No pneumothorax. IMPRESSION: Stable chronic changes of dense consolidation volume loss in the right upper hemithorax. No acute change of the chest.
[2018-06-18 21:56] VITALS: BP 118/62
[2018-06-19 06:57] VITALS: BP 112/58
--- NOTE | 2018-06-19 07:26 | PN- Housestaff ---
Buzz FRANKLIN,Rubina 06/19/18 0726: Subjective Follow-up For: Acute hypoxic respiratory failure secondary to pneumonia/lung cancer recurrence/ COPD/pneumonitis secondary to amiodarone Supratherapeutic INR Swallowing difficulties Hemoptysis Tele-Events Since Last Visit: Patient is in sinus rhythm, no events Subjective: Patient seen and examined. He states that he is feeling better than ever. He still has a minor cough with intermittent bloody sputum that is now "a little bit looser". The patient is eager to go home and we are searching for a suitable oxygen supply company for the patient that is here and in [place] as that is where he lives. Review of Systems Constitutional: Reports: no symptoms. EENTM: Reports: no symptoms. Cardiovascular: Reports: no symptoms. Respiratory: Reports: cough, hemoptysis. Gastrointestinal: Reports: no symptoms. Genitourinary: Reports: no symptoms. Musculoskeletal: Reports: no symptoms. Skin: Reports: no symptoms. Neurological/Psychological: Reports: no symptoms. Objective Last 24 Hrs of Vital Signs/I&O Vital Signs Date Time Temp Pulse Resp B/P B/P Pulse O2 O2 Flow FiO2 Mean Ox Delivery Rate 06/19 1429 98.4 85 17 131/56 93 Nasal 3.0L Cannula 06/19 1400 80 06/19 1311 80 06/19 1144 93 Nasal 3.0L Cannula 06/19 1013 92 06/19 0830 116/62 06/19 0815 95 Nasal 4.0L Cannula 06/19 0800 89 06/19 0800 95 Nasal 4.0L Cannula 06/19 0657 98.0 68 18 112/58 92 Nasal Cannula 06/18 2156 97.8 91 18 118/62 94 Nasal Cannula 06/18 2044 95 Nasal 4.0L Cannula 06/18 1702 80 06/18 1702 94 Nasal 5.0L Cannula 06/18 1632 95 Nasal 6.0L Cannula Intake & Output 06/19 1600 06/19 0800 06/19 0000 Intake Total 400 50 480 Output Total 026 936 1275 Balance -500 -150 -1620 Intake, Oral 400 50 480 Number 2 Bowel Movements Output, Urine 005 293 8433 Patient 218 lb Weight Weight Chair scale Measurement Method Physical Exam General Appearance: Alert, Oriented X3, Cooperative, No Acute Distress Skin Temp/Moisture Exam: Warm/Dry Neck: Supple, No JVD Cardiovascular: Regular Rate, Normal S1, Normal S2, No Murmurs Lungs: Clear to Auscultation, Normal Air Movement Abdomen: Normal Bowel Sounds, Soft, No Tenderness Neurological: Normal Speech Extremities: No Clubbing, No Cyanosis, No Edema, Normal Pulses, No Tenderness/ Swelling Vascular: Normal Pulses, Pulses Symmetrical Current Medications: Current Medications Sig/Mark Start time Last Medication Dose Route Stop Time Status Admin Albuterol Sulfate 3 ML EVERY 4 HRS/AWAKE 06/14 1600 AC 06/19 INH 1142 Albuterol Sulfate 2 PUF Q4-6 PRN PRN 06/11 1530 AC INH Aspirin 81 MG DAILY 06/15 0900 AC 06/19 PO 0831 Cholecalciferol 1,000 IU DAILY 06/12 1123 AC 06/19 PO 0831 Cyanocobalamin 1,000 MCG DAILY 06/12 1456 AC 06/19 PO 0830 Gabapentin 600 MG BID 06/11 2100 AC 06/19 PO 0830 Guaifenesin 600 MG Q12 06/13 2100 AC 06/19 PO 0830 Lactobacillus 1 CAP DAILY 06/13 1215 AC 06/19 Acidophilus PO 0831 Levofloxacin 500 MG DAILY 06/15 1015 AC 06/19 PO 0831 Midodrine 5 MG BID 06/11 2100 AC 06/19 PO 0830 Mirtazapine 15 MG QPM 06/11 2100 AC 06/18 PO 2256 Omeprazole 20 MG BID 06/11 2100 AC 06/19 PO 0830 Oxycodone/ 1 TAB 1700 PRN 06/14 1700 AC 06/18 Acetaminophen PO 1642 Oxycodone/ 1 TAB DAILY 06/14 1245 AC 06/19 Acetaminophen PO 0834 Prednisone 60 MG DAILY 06/17 0900 AC 06/19 PO 0830 Sodium Chloride 2 SPRAY Q4P PRN 06/18 1330 AC DRU Tamsulosin HCl 0.4 MG DAILY 06/11 1527 AC 06/19 PO 0830 Tizanidine HCl 4 MG QPM PRN 06/11 1530 AC 06/15 PO 1601 Warfarin Sodium 1 MG COUMADIN 1700 ONE 06/19 1700 AC PO 06/19 1701 Last 24 Hrs of Lab/Franco Results Last 24 Hrs of Labs/Mics: Laboratory Tests 06/19/18 0608: Total Bilirubin 0.8, Direct Bilirubin 0.2, AST 35, ALT 83 H, Alkaline Phosphatase 68, Total Protein 5.1 L, Albumin 2.6 L, PT 39.1 H, INR 3.54 H Assessment/Plan Assessment: 72 year old male with a PMH significant for COPD, afib, lung cancer sp right upper lobectomy 7 years ago with one year of chemo and radiation, vascular disease sp AAA repair also 7 years ago, afib with implanted loop recorder on Coumadin, that is BIBA for complaints of dyspnea and altered mental status. The patient has been apparently deteriorating over the past couple months, with mild cough with brownish/reddish sputum, on and off dizziness and blurriness of the eyes, and more recently, confusion and unsteadiness on his feet. The patient has also recently had uncontrolled bleeding. He is on Coumadin 4 mg daily and as per his , his pills have been mixed up recently and he may have taken more than the doses been prescribed. The patient was found in the field to be hypoxic and was placed on supplemental oxygen. He was given Solu-Medrol as well as the field. The patient sees a PCP and associate veterinarian in [place], phone numbers in the HPI. Of note, patient is severely allergic to penicillin, has anaphylactic reaction. Vitals in the urgency room were temperature 101.2 which decreased to 99, heart rate 102 which decreased to 90s, respiratory rate 24, blood pressure 125/56, 91% oxygen saturation on 4 L nasal cannula which was tapered down to 2 L, 94% oxygen saturation. Labs showed a WBC count of 9.4 with bandemia, hemoglobin 11.4, no old labs available, creatinine 1.4, BNP 2370, negative troponin, INR 8.09 with repeat INR of 8.43 Chest x-ray showed evidence of remote right upper lobectomy, upper half right hemithorax completely opacified which signifies plural effusion or fibrotic changes or tumor recurrence. Additionally seen was left lower lobe opacity. EKG showed a rate of 100 with a QTC of 470 and flipped P waves significant for ectopic atrial beats. In the ED, patient had blood cultures 2 taken and got 1 dose of moxifloxacin. 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 Chest x-ray shows evidence of pneumonia as well as potential recurrence of cancer/pleural effusionfibrotic changes. The patient was septic with an elevated heart rate and temperature up to 102 on admission with a suspected source of infection being the lung. -Hemoptysis: Patient had 1 episode of hemoptysis with about a teaspoon of blood produced. He recently had brownish reddish sputum for the past few weeks. -Supratherapeutic INR: Patient usually takes 4 mg of warfarin every day was found to have INR over 8 on admission. -Altered mental status and falls: Patient recently had unsteadiness on his feet , confusion, poor memory, and a fall out of bed. -History of lung cancer: Right upper lobe lobectomy 7 years ago with chemotherapy and radiation for 1 year. The patient has not followed up with an oncologist for several years. -Dysphagia: Patient notices difficulty in swallowing pills, no issues with swallowing food or drink. -History of A. fib with implanted loop recorder: Patient sees a associate veterinarian and EP down in [place], has an appointment with them in about one month. The patient is on warfarin for anticoagulation and amiodarone. He also has implantable loop recorder. Plan -We transferred the patient to telemetry for continuous pulse ox monitoring as well as cardiac monitoring as he acutely decompensated over the past weekend -Chest x-ray done during the weekend after decompensation was largely unchanged from prior. Troponins negative EKGs no evidence of ACS, BNP unchanged. -Repeat chest x-ray done last night showed stable chronic changes of dense consolidation volume loss in the right upper hemithorax status post right upper lobectomy for cancer. No acute change of the chest. -Patient respiratory cultures returned positive for Enterobacter and stenotrophomonas that was sensitive namely to Levaquin. Moxifloxacin would likely cover these bugs but over the weekend antibiotic coverage was switched to Levaquin 500 mg daily. We will continue this for 2 more days after today. -Plan per pulmonology is to do a slow taper of patient's 60 mg prednisone for 5 days followed by 50 mg for 5 days, 40 for 5 days, 30 for 5 days, 20 for 5 days, 10 for 5 days, 5 for 5 days and then stop. -We have stopped giving Lasix and will hold outpatient -For the patient's acute kidney injury we gave 1 bag of normal saline to good effect on admission and have not had any problems since. -Echocardiogram done over the weekend showed stage II diastolic dysfunction and an ejection fraction of 55%. -Patient's loop recorder was interrogated last week and showed previous pauses and bouts of A. fib in early May, nothing recently. These were found while patient was on 200 mg twice a day of amiodarone. We decreased the patient's amiodarone dose because of potential pulmonary toxicity that has occurred from twice daily to once a day. However now for further concern, we will stop amiodarone. We will defer to cardiology to consider MultAQ or another rhythm medication. -On admission we ordered CT head without contrast as patient has supratherapeutic INR and did fall earlier prior to admission. It showed no acute intracranial abnormality. -On admission we ordered CT of the chest without contrast as patient has a history of lung cancer, recurrent hemoptysis, and question of recurrence of mass on his chest x-ray. CT chest showed dense fibrosis and volume loss in the superior segments of the right lower and middle lobes near the apex of the right hemithorax consistent with prior radiation. No superimposed lesions were found. Also found was patchy multifocal groundglass airspace opacities with small consolidative/solid components possibly due to multifocal pneumonia or multifocal adenocarcinoma in situ. There are finally areas of subtle interlobular septal thickening suggesting early fibrotic change also likely related to prior asbestos exposure. We are treating the patient for the pneumonia and he will likely require a repeat CT scan after 4-6 weeks to evaluate for any cancer recurrence. Patient had a repeat CT, CTA when he acutely decompensated and it showed extensive airspace disease through the left lung that was worsened from his CT 3 days prior. -Urine Legionella and strep negative -CBC was stable despite patient's hemoptysis. Patient is currently back on his blood thinning medications Coumadin and aspirin as he has no longer had episodes of hemoptysis. -We gave vitamin K for admission INR of 8.43 and INR decreased to less than 2 last week. Patient was dosed his normal 4 mg warfarin dose and INR was still less than 2. Over the weekend we gave 5 mg of warfarin and patient's INR increased to 3.42 and then to 5.07 so we held Coumadin. Today's INR is 3.54 and as we do not want it to under shoot, we will give 1 mg of Coumadin. Patient is to get an INR read on Saturday with the results transmitted to Dr. Ann's answering service. The patient is to see Dr. Ann before he leaves for [place]. -Patient was cleared with swallow evaluation but CT scan showed reflux of food into the upper esophagus. Speech and swallow suggested normal diet but taking pills with apple sauce. Patient will need to follow-up with plant director when he is back in [place]. -Physical therapy consult as patient has had recent unsteadiness on his feet overnight and required an assist of 2. Yesterday on evaluation he is better and PT is recommending rolling walker at home and 2-3 times of physical therapy per week. -Patient will need follow up with his doctor as he was found to have low TSH and T3 indicative of amiodarone effects. He will need follow up LFTs and TFTs q3-6 months if he is put back on amiodarone. He is currently off amiodarone. He will be reevaluated by his associate veterinarian for a replacement therapy. -Carotid ultrasound showed hemodynamically significant stenosis in left external carotid artery and he will need to follow up with his PCP for a vascular consult one he arrives back in [place]. Full Code Heart healthy diet DVT prophylaxis with Alps and coumadin Problem List: 1. COPD (chronic obstructive pulmonary disease) 2. Acute respiratory failure with hypoxia 3. Swallowing difficulty 4. Supratherapeutic INR 5. Hemoptysis Pain Ratin Pain Location: na Pain Goal: Remain pain free Pain Plan: na Tomorrow's Labs & Rationales: na Consulting Request: Consulting Physician: Dr. Ann, Pulmonary Dr. Gamble, Cardiology Dr. Cifuentes, [place] Reason for Consult: Pneumonia, respiratory failure, PAF HandyDarrionvan 06/19/18 1455: Attending MD Review Statement Attending Statement Attending MD Statement: examined this patient, discuss w/resident/PA/NUMERICAL CONTROL TOOL PROGRAMMER, agreed w/resident/PA/NUMERICAL CONTROL TOOL PROGRAMMER, discussed with family, reviewed EMR data (avail), discussed with nursing, discussed with case mgmt Attending Assessment/Plan: Pneumonia/ Acute hypoxic resp failure- appreciated pulm recommendations. plan is to taper off oxygen. Prednisone will be slowly tapered. cont on levofloxacin. case management working on arranging home oxygen. pt still requiring 4l oxygen by [place]. pt is planning to travel back to [place] but with this flow of oxygen pt will not be able to travel by air and may have to go by road. If he weans down to 2L then it will be ok to travel by air. Dr Ann following the pt closely. P AFIB- Supratherapeutic INR- better now. will give 1mg coumadin tonight. dw/ pt and pts family at bedside the care plan.
[2018-06-19] MEDS ORDERED: PREDNISONE10 M2 PO ×2 (07:33→14:20)
[2018-06-19 08:25] LABS: PT 39.1 SEC (9.4-12.5)
--- NOTE | 2018-06-19 12:43 | PN- Infect Dx ---
Subjective Subjective: Afebrile on steroids. He feels well, though he is still occasionally coughing up dark sputum Objective Last 24 Hrs of Vital Signs/I&O Vital Signs Date Time Temp Pulse Resp B/P B/P Pulse O2 O2 Flow FiO2 Mean Ox Delivery Rate 06/19 1144 93 Nasal 3.0L Cannula 06/19 1013 92 06/19 0830 116/62 06/19 0815 95 Nasal 4.0L Cannula 06/19 0800 89 06/19 0800 95 Nasal 4.0L Cannula 06/19 0657 98.0 68 18 112/58 92 Nasal Cannula 06/18 2156 97.8 91 18 118/62 94 Nasal Cannula 06/18 2044 95 Nasal 4.0L Cannula 06/18 1702 80 06/18 1702 94 Nasal 5.0L Cannula 06/18 1632 95 Nasal 6.0L Cannula 06/18 1541 98.2 83 20 120/60 93 Nasal 4.0L Cannula 06/18 1508 70 Intake & Output 06/19 1600 06/19 0800 06/19 0000 Intake Total 50 480 Output Total 200 2100 Balance -150 -1620 Intake, Oral 50 480 Number 2 Bowel Movements Output, Urine 200 2100 Patient 218 lb Weight Weight Chair scale Measurement Method Physical Exam Other Physical Findings: He appears comfortable in no acute distress Lungs crackles at the left base Heart regular rhythm with no murmur Extremities no cyanosis, clubbing or edema Results Last 24 Hours of Lab Results: Laboratory Tests 06/19 06/18 0608 1240 Chemistry Sodium (137 - 145 mmol/L) 139 Potassium (3.5 - 5.1 mmol/L) 4.0 Chloride (98 - 107 mmol/L) 99 Carbon Dioxide (22 - 30 mmol/L) 30 Anion Gap (5 - 16) 10 BUN (9 - 20 mg/dL) 40 H Creatinine (0.7 - 1.2 mg/dL) 1.0 Estimated GFR (>60 ml/min) > 60 BUN/Creatinine Ratio (7 - 25 %) 40.0 H Total Bilirubin (0.2 - 1.3 mg/dL) 0.8 1.0 Direct Bilirubin (< 0.4 mg/dL) 0.2 0.3 AST (17 - 59 U/L) 35 56 ALT (21 - 72 U/L) 83 H 82 H Alkaline Phosphatase (< 127 U/L) 68 76 Total Protein (6.3 - 8.2 g/dL) 5.1 L 5.6 L Albumin (3.5 - 5.0 g/dL) 2.6 L 3.1 L Coagulation PT (9.4 - 12.5 SEC) 39.1 H INR (0.90 - 1.17) 3.54 H Last 24 Hours of Franco Results: No new cultures Recent Imaging Studies: Chest x-ray June 18 reveals a decreased left lower lobe density, with chronic changes in the right hemithorax Assessment/Plan ID Impression: Continues to improve, with decreasing oxygen requirements and with temperatures remaining normal (on steroids) on Levofloxacin, Day 5 of treatment for presumed left lung pneumonia secondary to Enterobacter and Stenotrophomonas, both of which were isolated from a recent sputum culture. Suggestion: 1. Continue steroid taper per Pulmonary 2. Continue Levofloxacin for 2 more days
--- NOTE | 2018-06-19 13:58 | PN- Pulmonary ---
Subjective HPI/Critical Care Issues: Improving stable on 4 litres Objective Current Medications: Current Medications Sig/Mark Start time Last Medication Dose Route Stop Time Status Admin Albuterol Sulfate 3 ML EVERY 4 HRS/AWAKE 06/14 1600 AC 06/19 INH 1142 Albuterol Sulfate 2 PUF Q4-6 PRN PRN 06/11 1530 AC INH Aspirin 81 MG DAILY 06/15 0900 AC 06/19 PO 0831 Cholecalciferol 1,000 IU DAILY 06/12 1123 AC 06/19 PO 0831 Clonazepam 0.5 MG DAILY 06/11 1525 DC 06/18 PO 06/18 1524 0823 Cyanocobalamin 1,000 MCG DAILY 06/12 1456 AC 06/19 PO 0830 Furosemide 40 MG ONCE ONE 06/18 1445 DC 06/18 IV 06/18 1446 1524 Gabapentin 600 MG BID 06/11 2100 AC 06/19 PO 0830 Guaifenesin 600 MG Q12 06/13 2100 AC 06/19 PO 0830 Lactobacillus 1 CAP DAILY 06/13 1215 AC 06/19 Acidophilus PO 0831 Levofloxacin 500 MG DAILY 06/15 1015 AC 06/19 PO 0831 Midodrine 5 MG BID 06/11 2100 AC 06/19 PO 0830 Mirtazapine 15 MG QPM 06/11 2100 AC 06/18 PO 2256 Omeprazole 20 MG BID 06/11 2100 AC 06/19 PO 0830 Oxycodone/ 1 TAB 1700 PRN 06/14 1700 AC 06/18 Acetaminophen PO 1642 Oxycodone/ 1 TAB DAILY 06/14 1245 AC 06/19 Acetaminophen PO 0834 Prednisone 60 MG DAILY 06/17 0900 AC 06/19 PO 0830 Sodium Chloride 2 SPRAY Q4P PRN 06/18 1330 AC DRU Tamsulosin HCl 0.4 MG DAILY 06/11 1527 AC 06/19 PO 0830 Tizanidine HCl 4 MG QPM PRN 06/11 1530 AC 06/15 PO 1601 Vital Signs & I&O Last 24 Hrs of Vitals and I&O: Vital Signs Date Time Temp Pulse Resp B/P B/P Pulse O2 O2 Flow FiO2 Mean Ox Delivery Rate 06/19 1311 80 06/19 1144 93 Nasal 3.0L Cannula 06/19 1013 92 06/19 0830 116/62 06/19 0815 95 Nasal 4.0L Cannula 06/19 0800 89 06/19 0800 95 Nasal 4.0L Cannula 06/19 0657 98.0 68 18 112/58 92 Nasal Cannula 06/18 2156 97.8 91 18 118/62 94 Nasal Cannula 06/18 2044 95 Nasal 4.0L Cannula 06/18 1702 80 06/18 1702 94 Nasal 5.0L Cannula 06/18 1632 95 Nasal 6.0L Cannula 06/18 1541 98.2 83 20 120/60 93 Nasal 4.0L Cannula 06/18 1508 70 Intake & Output 06/19 1600 06/19 0800 06/19 0000 Intake Total 50 480 Output Total 200 2100 Balance -150 -1620 Intake, Oral 50 480 Number 2 Bowel Movements Output, Urine 200 2100 Patient 218 lb Weight Weight Chair scale Measurement Method Impression/Plan Impression/Plan Impression/Plan: CTA IMPRESSION: 1. No CT evidence for acute pulmonary embolism. 2. Status post right upper lobectomy. Enhancement of the soft tissue at the level of the right lung apex. While this may represent granulation tissue in the postoperative setting of possible of locally recurrent malignancy should be additionally considered. 3. Extensive airspace disease throughout the left lung, worsened compared to the CT from 3 days prior. Differential diagnostic considerations would include infectious etiologies versus background edema. Multifocal adenocarcinoma can also have this appearance. 4. 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 5. 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 VTE: negative DICTATED BY: Luis Manuel FRANKLIN,Carmen IMPRESSION 72-year-old male past medical history of COPD not on home oxygen, Locally advanced lung cancer status post right upper lobectomy xrt and chemo and treatment 7 years ago, AAA repair in the past and atrial fibrillation with a loop recorder. He is here from [place] visiting his daughter and for the past week has been having increasing shortness of breath. The family also feels he's been confused and mixing up his medications and generally feeling weak. They brought him in because he fell out of bed and was having visible difficulty breathing. ISsues Resolving Acute hypoxic resp failiure over the week end due to CHF vs worsening amiodarone lung injury in a pt with following issues * Resolving Bilateral pulm infiltrates consistant with multilobar pna (with enterobacter and S. 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 as well as he is was on high dose amiodarone * History of locally advanced Lung ca 6 yrs ago with rt upperlobectomy followed by xrt and chemo now with evidence of dense fibrosis in the rt middle lobe and volume loss * COPD with mild wheezing with mild copd exacerbation, with ongoing smoking * Hypoxic resp failure now improving * Pleural thickening and evidence of pulm fibrosis needs longitudinal follow up * Esophageal thickening with reflux with dysphagia -barium swallow reviewed, MBS showed no sig aspriation risk - needs follow up eval * Pafib with Inital supratherapeutic inr now with very mild hemoptysis (prob related to pulm infiltrate), now with sinus rhythm prob - Inr trending down * Elevated BNP high risk for chf * Gait imbalance and recent memory loss - needs eval- * Sig B12 def noted by blood work needs b12 injections followed by high dose po/ vit d def noted * GEO resolved * Near syncope and a fall initially REC Cont abx levo for 7 days Prednisone 60 mg for 4 days then 5o x 5 / 40 x 5 / 30 for 5 / 20 x 5 then 10 for 5 and then 5 mg for 5 days Reduce oxygen to keep sat of 90-92 Increase activity Saline nasal spray and saline gel if we have it in the pharmacy for the nose Will follow Ok to dc if home oxygen is arranged Check inr regularly Pt to follow with me upon dc Discussed with the family
[2018-06-19] MEDS ORDERED: VITAMIN D31000 UNI2 PO (14:20)
[2018-06-19] MEDS ORDERED: LEVAQUIN500 M1 PO (14:20)
[2018-06-19] MEDS ORDERED: VITAMIN B-121000 MC3 PO (14:20)
[2018-06-19 14:29] VITALS: BP 131/56
--- NOTE | 2018-06-19 16:21 | PN- Cardiology ---
Subjective Subjective: His breathing continues to improve. Objective Vital Signs and I&Os Vital Signs Date Time Temp Pulse Resp B/P B/P Pulse O2 O2 Flow FiO2 Mean Ox Delivery Rate 06/19 1429 98.4 85 17 131/56 93 Nasal 3.0L Cannula 06/19 1400 80 06/19 1311 80 06/19 1144 93 Nasal 3.0L Cannula 06/19 1013 92 06/19 0830 116/62 06/19 0815 95 Nasal 4.0L Cannula 06/19 0800 89 06/19 0800 95 Nasal 4.0L Cannula 06/19 0657 98.0 68 18 112/58 92 Nasal Cannula 06/18 2156 97.8 91 18 118/62 94 Nasal Cannula 06/18 2044 95 Nasal 4.0L Cannula 06/18 1702 80 06/18 1702 94 Nasal 5.0L Cannula 06/18 1632 95 Nasal 6.0L Cannula Intake & Output 06/19 1600 06/19 0800 06/19 0000 06/18 1600 06/18 0800 06/18 0000 Intake Total 400 50 480 400 200 480 Output Total 597 912 2937 5437 716 1732 Balance -500 -150 -1620 -650 -325 -1045 Intake, IV Intake, Oral 400 50 480 400 200 480 Number 2 0 Bowel Movements Output, Urine 518 256 2138 1526 353 [id number] Patient 218 lb 218 lb Weight Weight Chair scale Measurement Method Physical Exam: Well-developed, overweight elderly male in no acute distress with nasal oxygen in place. Vital signs: See above. HEENT: Normocephalic, atraumatic, EOMI, slightly dry mucous membranes. Neck: No JVD, bilateral carotid bruits versus transmitted systolic murmur right greater than left. Lungs: Decreased breath sounds bilaterally with occasional rhonchi. Heart: S1, S2 with grade 1-2/6 systolic murmur. No gallop or rub. PMI not well felt. Abdomen: Soft, nontender, positive bowel sounds. Extremities: No edema. Current Medications: Current Medications Sig/Mark Start time Last Medication Dose Route Stop Time Status Admin Albuterol Sulfate 3 ML EVERY 4 HRS/AWAKE 06/14 1600 AC 06/19 INH 1142 Albuterol Sulfate 2 PUF Q4-6 PRN PRN 06/11 1530 AC INH Aspirin 81 MG DAILY 06/15 0900 AC 06/19 PO 0831 Cholecalciferol 1,000 IU DAILY 06/12 1123 AC 06/19 PO 0831 Cyanocobalamin 1,000 MCG DAILY 06/12 1456 AC 06/19 PO 0830 Gabapentin 600 MG BID 06/11 2100 AC 06/19 PO 0830 Guaifenesin 600 MG Q12 06/13 2100 AC 06/19 PO 0830 Lactobacillus 1 CAP DAILY 06/13 1215 AC 06/19 Acidophilus PO 0831 Levofloxacin 500 MG DAILY 06/15 1015 AC 06/19 PO 0831 Midodrine 5 MG BID 06/11 2100 AC 06/19 PO 0830 Mirtazapine 15 MG QPM 06/11 2100 AC 06/18 PO 2256 Omeprazole 20 MG BID 06/11 2100 AC 06/19 PO 0830 Oxycodone/ 1 TAB 1700 PRN 06/14 1700 AC 06/18 Acetaminophen PO 1642 Oxycodone/ 1 TAB DAILY 06/14 1245 AC 06/19 Acetaminophen PO 0834 Prednisone 60 MG DAILY 06/17 0900 AC 06/19 PO 0830 Sodium Chloride 2 SPRAY Q4P PRN 06/18 1330 AC DRU Tamsulosin HCl 0.4 MG DAILY 06/11 1527 AC 06/19 PO 0830 Tizanidine HCl 4 MG QPM PRN 06/11 1530 AC 06/15 PO 1601 Warfarin Sodium 1 MG COUMADIN 1700 ONE 06/19 1700 AC 06/19 PO 06/19 1701 1616 Results Last 48 Hrs of Labs/Mics: Laboratory Tests 06/19/18 0608: Total Bilirubin 0.8, Direct Bilirubin 0.2, AST 35, ALT 83 H, Alkaline Phosphatase 68, Total Protein 5.1 L, Albumin 2.6 L, PT 39.1 H, INR 3.54 H 06/18/18 1240: Anion Gap 10, Estimated GFR > 60, BUN/Creatinine Ratio 40.0 H, Total Bilirubin 1.0, Direct Bilirubin 0.3, AST 56, ALT 82 H, Alkaline Phosphatase 76, Total Protein 5.6 L, Albumin 3.1 L 06/18/18 0606: PT 50.3 *H, INR 4.54 *H, CBC w Diff NO MAN DIFF REQ, RBC 3.90 L, MCV 89.5, MCH 29.5, MCHC 33.0, RDW 18.2 H, MPV 7.9, Gran % 85.0 H, Lymphocytes % 8.6 L, Monocytes % 6.4, Eosinophils % 0, Basophils % 0, Absolute Granulocytes 10.1 H, Absolute Lymphocytes 1.0 L, Absolute Monocytes 0.8 H, Absolute Eosinophils 0, Absolute Basophils 0 Recent Imaging Studies: CXR 06/18/2018 1. Stable chronic changes of dense consolidation volume loss in the right upper hemithorax. 2. No acute change of the chest. Assessment/Plan Assessment/Plan [id number] w/ hx of very heavy tob use (3 ppd x 50+ yrs), COPD, lung ca s/p RUL lobectomy ~2012 w/ f/u chemo & radiation Rx, vasc disease s/p open AAA repair ~ 2010, previously Rx'd HLD, CAD s/p PCI/stenting, & PAF on amio/warfarin s/p LINQ recorder who presented to the ED on 06/11/2018 w/ AMS, SOB, cough productive of brown sputum, following a witnessed fall from bed from which he could not get up and who was found to be hypoxemic and febrile w/ a left shift on his WBC count, GEO, supratherapeutic INR, abnormal CXR/chest CT etc. c/w multilobar pneumonia w/ decompensation 2/2 diastolic HF, amiodarone toxicity, recurrent ca. Given concerns from pulmonary medicine about amiodarone toxicity and the fact that he had documented "breakthrough" of AF on his LINQ recorder, although relatively brief, the amiodarone was discontinued. He also was diuresed and his clinical status has improved. Unfortunately, there are not many good alternatives to the amiodarone, given his CAD, initial GEO, etc. Interrogation of the [employer] LINQ recorder on 06/12/2018 revealed: Several episodes of bradycardia with pauses on 05/12/2018 with the 2 longest pause of ~ 3.0 seconds duration, one episode of atrial fibrillation on 05/11/2018 w/ a median ventricular rate of ~120 bpm that lasted ~24 min., no device recorded episodes since 05/12/2018, and no correlation between symptomatic episodes and dysrhythmic events. Recommendations: * Given the recurrent AF, prudent to maintain him on full AC, but note supratherapeutic INR at 3.54. Continue to hold warfarin and follow-up INR closely. * Continue to follow-up on ID and pulmonary medicine recommendations. * DVT prophylaxis being addressed. Continue telemetry? Yes
[2018-06-19 22:03] VITALS: BP 122/78
[2018-06-20 06:18] VITALS: BP 100/68
--- NOTE | 2018-06-20 07:43 | PN- Housestaff ---
Buzz FRANKLIN,Rubina 06/20/18 0743: Subjective Follow-up For: Acute hypoxic respiratory failure secondary to pneumonia/lung cancer recurrence/ COPD/pneumonitis secondary to amiodarone Supratherapeutic INR Swallowing difficulties Hemoptysis Subjective: Patient seen and examined. He is in good spirits and is very eager to leave and go back to [place]. The issue remains his high flow oxygen and his trip back down to [place]. The patient's vitals are stable and he is saturating 93% on 3- 4 L overnight. Review of Systems Constitutional: Reports: no symptoms. EENTM: Reports: no symptoms. Cardiovascular: Reports: no symptoms. Respiratory: Reports: cough. Gastrointestinal: Reports: no symptoms. Musculoskeletal: Reports: no symptoms. Skin: Reports: no symptoms. Neurological/Psychological: Reports: no symptoms. Hematologic/Endocrine: Reports: no symptoms. Objective Last 24 Hrs of Vital Signs/I&O Vital Signs Date Time Temp Pulse Resp B/P B/P Pulse O2 O2 Flow FiO2 Mean Ox Delivery Rate 06/20 1441 70 06/20 1437 94 Nasal 3.0L Cannula 06/20 1415 97.9 84 20 100/66 93 Nasal Cannula 06/20 0907 Nasal 3.0L Cannula 06/20 0800 78 06/20 0800 95 Nasal 3.0L Cannula 06/20 0743 110/60 06/20 0618 97.6 82 20 100/68 93 Nasal Cannula 06/19 2342 Nasal 3.0L Cannula 06/19 2203 98.1 86 18 122/78 94 Nasal Cannula 06/19 2000 80 06/19 1730 92 Nasal 3.0L Cannula 06/19 1711 90 06/19 1711 94 Nasal 4.0L Cannula Intake & Output 06/20 1600 06/20 0800 06/20 0000 Intake Total 400 480 480 Output Total 900 300 Balance -500 480 180 Intake, Oral 400 480 480 Number 0 0 Bowel Movements Output, Urine 900 300 Patient 220 lb Weight Weight Bed scale Measurement Method Physical Exam General Appearance: Alert, Oriented X3, Cooperative, No Acute Distress Skin: No Rashes, No Breakdown, No Significant Lesion Skin Temp/Moisture Exam: Warm/Dry Sepsis Skin Exam (color): Normal for Ethnicity HEENT: Atraumatic, PERRLA, EOMI, Mucous Membr. moist/pink Neck: Supple, No JVD Cardiovascular: Regular Rate, Normal S1, Normal S2, No Murmurs Lungs: Clear to Auscultation, Normal Air Movement Abdomen: Normal Bowel Sounds, Soft, No Tenderness Neurological: Normal Speech Extremities: No Clubbing, No Cyanosis, No Edema Current Medications: Current Medications Sig/Mark Start time Last Medication Dose Route Stop Time Status Admin Albuterol Sulfate 3 ML EVERY 4 HRS/AWAKE 06/14 1600 AC 06/20 INH 1432 Albuterol Sulfate 2 PUF Q4-6 PRN PRN 06/11 1530 AC INH Aspirin 81 MG DAILY 06/15 0900 AC 06/20 PO 0743 Cholecalciferol 1,000 IU DAILY 06/12 1123 AC 06/20 PO 0745 Cyanocobalamin 1,000 MCG DAILY 06/12 1456 AC 06/20 PO 0745 Gabapentin 600 MG BID 06/11 2100 AC 06/20 PO 0744 Guaifenesin 600 MG Q12 06/13 2100 AC 06/20 PO 0745 Lactobacillus 1 CAP DAILY 06/13 1215 AC 06/20 Acidophilus PO 0744 Levofloxacin 500 MG DAILY 06/15 1015 AC 06/20 PO 0743 Midodrine 5 MG BID 06/11 2100 AC 06/20 PO 0744 Mirtazapine 15 MG QPM 06/11 2100 AC 06/19 PO 2302 Omeprazole 20 MG BID 06/11 2100 AC 06/20 PO 0744 Oxycodone/ 1 TAB 1700 PRN 06/14 1700 AC 06/19 Acetaminophen PO 2006 Oxycodone/ 1 TAB DAILY 06/14 1245 AC 06/20 Acetaminophen PO 0749 Prednisone 60 MG DAILY 06/17 0900 AC 06/20 PO 0743 Sodium Chloride 2 SPRAY Q4P PRN 06/18 1330 AC DRU Tamsulosin HCl 0.4 MG DAILY 06/11 1527 AC 06/20 PO 0743 Tizanidine HCl 4 MG QPM PRN 06/11 1530 AC 06/15 PO 1601 Warfarin Sodium 3 MG COUMADIN 1700 06/20 1700 AC PO 06/20 2359 Warfarin Sodium 1 MG COUMADIN 1700 ONE 06/19 1700 DC 06/19 PO 06/19 1701 1616 Last 24 Hrs of Lab/Franco Results Last 24 Hrs of Labs/Mics: Laboratory Tests 06/20/18 0638: PT 27.4 H, INR 2.49 H Assessment/Plan Assessment: 72 year old male with a PMH significant for COPD, afib, lung cancer sp right upper lobectomy 7 years ago with one year of chemo and radiation, vascular disease sp AAA repair also 7 years ago, afib with implanted loop recorder on Coumadin, that is BIBA for complaints of dyspnea and altered mental status. The patient has been apparently deteriorating over the past couple months, with mild cough with brownish/reddish sputum, on and off dizziness and blurriness of the eyes, and more recently, confusion and unsteadiness on his feet. The patient has also recently had uncontrolled bleeding. He is on Coumadin 4 mg daily and as per his , his pills have been mixed up recently and he may have taken more than the doses been prescribed. The patient was found in the field to be hypoxic and was placed on supplemental oxygen. He was given Solu-Medrol as well as the field. The patient sees a PCP and spice miller in [place], phone numbers in the HPI. Of note, patient is severely allergic to penicillin, has anaphylactic reaction. Vitals in the urgency room were temperature 101.2 which decreased to 99, heart rate 102 which decreased to 90s, respiratory rate 24, blood pressure 125/56, 91% oxygen saturation on 4 L nasal cannula which was tapered down to 2 L, 94% oxygen saturation. Labs showed a WBC count of 9.4 with bandemia, hemoglobin 11.4, no old labs available, creatinine 1.4, BNP 2370, negative troponin, INR 8.09 with repeat INR of 8.43 Chest x-ray showed evidence of remote right upper lobectomy, upper half right hemithorax completely opacified which signifies plural effusion or fibrotic changes or tumor recurrence. Additionally seen was left lower lobe opacity. EKG showed a rate of 100 with a QTC of 470 and flipped P waves significant for ectopic atrial beats. In the ED, patient had blood cultures 2 taken and got 1 dose of moxifloxacin. 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 Chest x-ray shows evidence of pneumonia as well as potential recurrence of cancer/pleural effusionfibrotic changes. The patient was septic with an elevated heart rate and temperature up to 102 on admission with a suspected source of infection being the lung. -Hemoptysis: Patient had 1 episode of hemoptysis with about a teaspoon of blood produced. He recently had brownish reddish sputum for the past few weeks. -Supratherapeutic INR: Patient usually takes 4 mg of warfarin every day was found to have INR over 8 on admission. -Altered mental status and falls: Patient recently had unsteadiness on his feet , confusion, poor memory, and a fall out of bed. -History of lung cancer: Right upper lobe lobectomy 7 years ago with chemotherapy and radiation for 1 year. The patient has not followed up with an oncologist for several years. -Dysphagia: Patient notices difficulty in swallowing pills, no issues with swallowing food or drink. -History of A. fib with implanted loop recorder: Patient sees a spice miller and EP down in [place], has an appointment with them in about one month. The patient is on warfarin for anticoagulation and amiodarone. He also has implantable loop recorder. Plan -We transferred the patient to telemetry for continuous pulse ox monitoring as well as cardiac monitoring as he acutely decompensated over the past weekend -Chest x-ray done during the weekend after decompensation was largely unchanged from prior. Troponins negative EKGs no evidence of ACS, BNP unchanged. -Repeat chest x-ray done last night showed stable chronic changes of dense consolidation volume loss in the right upper hemithorax status post right upper lobectomy for cancer. No acute change of the chest. -Patient respiratory cultures returned positive for Enterobacter and stenotrophomonas that was sensitive namely to Levaquin. Moxifloxacin would likely cover these bugs but over the weekend antibiotic coverage was switched to Levaquin 500 mg daily. We will continue this for 2 more days after today. -Plan per pulmonology is to do a slow taper of patient's 60 mg prednisone for 5 days followed by 50 mg for 5 days, 40 for 5 days, 30 for 5 days, 20 for 5 days, 10 for 5 days, 5 for 5 days and then stop. -We have stopped giving Lasix and will hold outpatient -For the patient's acute kidney injury we gave 1 bag of normal saline to good effect on admission and have not had any problems since. -Echocardiogram done over the weekend showed stage II diastolic dysfunction and an ejection fraction of 55%. -Patient's loop recorder was interrogated last week and showed previous pauses and bouts of A. fib in early May, nothing recently. These were found while patient was on 200 mg twice a day of amiodarone. We decreased the patient's amiodarone dose because of potential pulmonary toxicity that has occurred from twice daily to once a day. However now for further concern, we will stop amiodarone. We will defer to cardiology to consider MultAQ or another rhythm medication. -On admission we ordered CT head without contrast as patient has supratherapeutic INR and did fall earlier prior to admission. It showed no acute intracranial abnormality. -On admission we ordered CT of the chest without contrast as patient has a history of lung cancer, recurrent hemoptysis, and question of recurrence of mass on his chest x-ray. CT chest showed dense fibrosis and volume loss in the superior segments of the right lower and middle lobes near the apex of the right hemithorax consistent with prior radiation. No superimposed lesions were found. Also found was patchy multifocal groundglass airspace opacities with small consolidative/solid components possibly due to multifocal pneumonia or multifocal adenocarcinoma in situ. There are finally areas of subtle interlobular septal thickening suggesting early fibrotic change also likely related to prior asbestos exposure. We are treating the patient for the pneumonia and he will likely require a repeat CT scan after 4-6 weeks to evaluate for any cancer recurrence. Patient had a repeat CT, CTA when he acutely decompensated and it showed extensive airspace disease through the left lung that was worsened from his CT 3 days prior. -Urine Legionella and strep negative -CBC was stable despite patient's hemoptysis. Patient is currently back on his blood thinning medications Coumadin and aspirin as he has no longer had episodes of hemoptysis. -We gave vitamin K for admission INR of 8.43 and INR decreased to less than 2 last week. Patient was dosed his normal 4 mg warfarin dose and INR was still less than 2. Over the weekend we gave 5 mg of warfarin and patient's INR increased to 3.42 and then to 5.07 so we held Coumadin. Today's INR is 3.54 and as we do not want it to under shoot, we will give 1 mg of Coumadin. Patient is to get an INR read on Saturday with the results transmitted to Dr. Ann's answering service. The patient is to see Dr. Ann before he leaves for [place]. -Patient was cleared with swallow evaluation but CT scan showed reflux of food into the upper esophagus. Speech and swallow suggested normal diet but taking pills with apple sauce. Patient will need to follow-up with soils analyst when he is back in [place]. -Physical therapy consult as patient has had recent unsteadiness on his feet overnight and required an assist of 2. Yesterday on evaluation he is better and PT is recommending rolling walker at home and 2-3 times of physical therapy per week. -Patient will need follow up with his doctor as he was found to have low TSH and T3 indicative of amiodarone effects. He will need follow up LFTs and TFTs q3-6 months if he is put back on amiodarone. He is currently off amiodarone. He will be reevaluated by his spice miller for a replacement therapy. -Carotid ultrasound showed hemodynamically significant stenosis in left external carotid artery and he will need to follow up with his PCP for a vascular consult one he arrives back in [place]. Full Code Heart healthy diet DVT prophylaxis with Alps and coumadin Problem List: 1. Paroxysmal A-fib 2. COPD (chronic obstructive pulmonary disease) 3. Acute respiratory failure with hypoxia Pain Ratin Pain Location: na Pain Goal: Remain pain free Pain Plan: na Tomorrow's Labs & Rationales: inr Consulting Request: Consulting Physician: Dr. Ann, Pulmonary Dr. Gamble, Cardiology Dr. Cifuentes, [place] Reason for Consult: Pneumonia, respiratory failure, PAF Elan Murrell 06/20/18 1325: Attending MD Review Statement Attending Statement Attending MD Statement: examined this patient, discuss w/resident/PA/DISTRICT PLANT SUPERVISOR, agreed w/resident/PA/DISTRICT PLANT SUPERVISOR, discussed with family, reviewed EMR data (avail), discussed with nursing, discussed with case mgmt Attending Assessment/Plan: Pneumonia/ Acute hypoxic resp failure- appreciated pulm recommendations. plan is to taper off oxygen. Prednisone will be slowly tapered. cont on levofloxacin. case management working on arranging home oxygen. pt still requiring 3L oxygen by [place]. pt is planning to travel back to [place] on Saturday. Pts daughter is working on renting an oxygen concentrator for his travel and then case management is working on arranging oxygen for pt when he gets to [place]. P AFIB- therapeutic INR- will give 3mg coumadin tonight. plan is to dc him tomorrow once oxygen concentrator is arranged. Pt is going to stay in the hotel and will be flying back on Saturday. d/w pt and pts family the care plan.
[2018-06-20 08:50] LABS: PT 27.4 SEC (9.4-12.5)
--- NOTE | 2018-06-20 13:25 | PN- Cardiology ---
Subjective Subjective: No complaints. Continues to feel improved. Objective Vital Signs and I&Os Vital Signs Date Time Temp Pulse Resp B/P B/P Pulse O2 O2 Flow FiO2 Mean Ox Delivery Rate 06/20 0907 Nasal 3.0L Cannula 06/20 0800 78 06/20 0800 95 Nasal 3.0L Cannula 06/20 0743 110/60 06/20 0618 97.6 82 20 100/68 93 Nasal Cannula 06/19 2342 Nasal 3.0L Cannula 06/19 2203 98.1 86 18 122/78 94 Nasal Cannula 06/19 2000 80 06/19 1730 92 Nasal 3.0L Cannula 06/19 1711 90 06/19 1711 94 Nasal 4.0L Cannula 06/19 1429 98.4 85 17 131/56 93 Nasal 3.0L Cannula 06/19 1400 80 Intake & Output 06/20 1600 06/20 0800 06/20 0000 06/19 1600 06/19 0800 06/19 0000 Intake Total 480 480 400 50 480 Output Total 300 486 901 4392 Balance 480 180 -500 -150 -1620 Intake, Oral 480 480 400 50 480 Number 0 0 2 Bowel Movements Output, Urine [id number] Patient 220 lb 218 lb Weight Weight Bed scale Chair scale Measurement Method Physical Exam: Well-developed, overweight elderly male in no acute distress with nasal oxygen in place. Vital signs: See above. HEENT: Normocephalic, atraumatic, EOMI, slightly dry mucous membranes. Neck: No JVD, bilateral carotid bruits versus transmitted systolic murmur right greater than left. Lungs: Decreased breath sounds bilaterally with occasional rhonchi. Heart: S1, S2 with grade 1-2/6 systolic murmur. No gallop or rub. PMI not well felt. Abdomen: Soft, nontender, positive bowel sounds. Extremities: No edema. Current Medications: Current Medications Sig/Mark Start time Last Medication Dose Route Stop Time Status Admin Albuterol Sulfate 3 ML EVERY 4 HRS/AWAKE 06/14 1600 AC 06/20 INH 0905 Albuterol Sulfate 2 PUF Q4-6 PRN PRN 06/11 1530 AC INH Aspirin 81 MG DAILY 06/15 0900 AC 06/20 PO 0743 Cholecalciferol 1,000 IU DAILY 06/12 1123 AC 06/20 PO 0745 Cyanocobalamin 1,000 MCG DAILY 06/12 1456 AC 06/20 PO 0745 Gabapentin 600 MG BID 06/11 2100 AC 06/20 PO 0744 Guaifenesin 600 MG Q12 06/13 2100 AC 06/20 PO 0745 Lactobacillus 1 CAP DAILY 06/13 1215 AC 06/20 Acidophilus PO 0744 Levofloxacin 500 MG DAILY 06/15 1015 AC 06/20 PO 0743 Midodrine 5 MG BID 06/11 2100 AC 06/20 PO 0744 Mirtazapine 15 MG QPM 06/11 2100 AC 06/19 PO 2302 Omeprazole 20 MG BID 06/11 2100 AC 06/20 PO 0744 Oxycodone/ 1 TAB 1700 PRN 06/14 1700 AC 06/19 Acetaminophen PO 2006 Oxycodone/ 1 TAB DAILY 06/14 1245 AC 06/20 Acetaminophen PO 0749 Prednisone 60 MG DAILY 06/17 0900 AC 06/20 PO 0743 Sodium Chloride 2 SPRAY Q4P PRN 06/18 1330 AC DRU Tamsulosin HCl 0.4 MG DAILY 06/11 1527 AC 06/20 PO 0743 Tizanidine HCl 4 MG QPM PRN 06/11 1530 AC 06/15 PO 1601 Warfarin Sodium 1 MG COUMADIN 1700 ONE 06/19 1700 DC 06/19 PO 06/19 1701 1616 Results Last 48 Hrs of Labs/Mics: Laboratory Tests 06/20/18 0638: PT 27.4 H, INR 2.49 H 06/19/18 0608: Total Bilirubin 0.8, Direct Bilirubin 0.2, AST 35, ALT 83 H, Alkaline Phosphatase 68, Total Protein 5.1 L, Albumin 2.6 L, PT 39.1 H, INR 3.54 H Assessment/Plan Assessment/Plan [id number] w/ hx of very heavy tob use (3 ppd x 50+ yrs), COPD, lung ca s/p RUL lobectomy ~2012 w/ f/u chemo & radiation Rx, vasc disease s/p open AAA repair ~ 2010, previously Rx'd HLD, CAD s/p PCI/stenting, & PAF on amio/warfarin s/p LINQ recorder who presented to the ED on 06/11/2018 w/ AMS, SOB, cough productive of brown sputum, following a witnessed fall from bed from which he could not get up and who was found to be hypoxemic and febrile w/ a left shift on his WBC count, GEO, supratherapeutic INR, abnormal CXR/chest CT etc. c/w multilobar pneumonia w/ decompensation 2/2 diastolic HF, amiodarone toxicity, recurrent ca. Given concerns from pulmonary medicine about amiodarone toxicity and the fact that he had documented "breakthrough" of AF on his LINQ recorder, although relatively brief, the amiodarone was discontinued. He also was diuresed and his clinical status has improved. Unfortunately, there are not many good alternatives to the amiodarone, given his CAD, initial GEO, etc. Interrogation of the [employer] LINQ recorder on 06/12/2018 revealed: Several episodes of bradycardia with pauses on 05/12/2018 with the 2 longest pause of ~ 3.0 seconds duration, one episode of atrial fibrillation on 05/11/2018 w/ a median ventricular rate of ~120 bpm that lasted ~24 min., no device recorded episodes since 05/12/2018, and no correlation between symptomatic episodes and dysrhythmic events. Recommendations: * Given the recurrent AF, will maintain him on full AC. Note therapeutic INR at 2.49. Continue to follow-up INR closely. * Continue to follow-up on ID and pulmonary medicine recommendations. * DVT prophylaxis being addressed. Continue telemetry? Yes
--- NOTE | 2018-06-20 13:54 | PN- Pulmonary ---
Subjective HPI/Critical Care Issues: Doing well stable Objective Current Medications: Current Medications Sig/Mark Start time Last Medication Dose Route Stop Time Status Admin Albuterol Sulfate 3 ML EVERY 4 HRS/AWAKE 06/14 1600 AC 06/20 INH 0905 Albuterol Sulfate 2 PUF Q4-6 PRN PRN 06/11 1530 AC INH Aspirin 81 MG DAILY 06/15 0900 AC 06/20 PO 0743 Cholecalciferol 1,000 IU DAILY 06/12 1123 AC 06/20 PO 0745 Cyanocobalamin 1,000 MCG DAILY 06/12 1456 AC 06/20 PO 0745 Gabapentin 600 MG BID 06/11 2100 AC 06/20 PO 0744 Guaifenesin 600 MG Q12 06/13 2100 AC 06/20 PO 0745 Lactobacillus 1 CAP DAILY 06/13 1215 AC 06/20 Acidophilus PO 0744 Levofloxacin 500 MG DAILY 06/15 1015 AC 06/20 PO 0743 Midodrine 5 MG BID 06/11 2100 AC 06/20 PO 0744 Mirtazapine 15 MG QPM 06/11 2100 AC 06/19 PO 2302 Omeprazole 20 MG BID 06/11 2100 AC 06/20 PO 0744 Oxycodone/ 1 TAB 1700 PRN 06/14 1700 AC 06/19 Acetaminophen PO 2006 Oxycodone/ 1 TAB DAILY 06/14 1245 AC 06/20 Acetaminophen PO 0749 Prednisone 60 MG DAILY 06/17 0900 AC 06/20 PO 0743 Sodium Chloride 2 SPRAY Q4P PRN 06/18 1330 AC DRU Tamsulosin HCl 0.4 MG DAILY 06/11 1527 AC 06/20 PO 0743 Tizanidine HCl 4 MG QPM PRN 06/11 1530 AC 06/15 PO 1601 Warfarin Sodium 3 MG COUMADIN 1700 06/20 1700 AC PO 06/20 2359 Warfarin Sodium 1 MG COUMADIN 1700 ONE 06/19 1700 DC 06/19 PO 06/19 1701 1616 Vital Signs & I&O Last 24 Hrs of Vitals and I&O: Vital Signs Date Time Temp Pulse Resp B/P B/P Pulse O2 O2 Flow FiO2 Mean Ox Delivery Rate 06/20 0907 Nasal 3.0L Cannula 06/20 0800 78 06/20 0800 95 Nasal 3.0L Cannula 06/20 0743 110/60 06/20 0618 97.6 82 20 100/68 93 Nasal Cannula 06/19 2342 Nasal 3.0L Cannula 06/19 2203 98.1 86 18 122/78 94 Nasal Cannula 06/19 2000 80 06/19 1730 92 Nasal 3.0L Cannula 06/19 1711 90 06/19 1711 94 Nasal 4.0L Cannula 06/19 1429 98.4 85 17 131/56 93 Nasal 3.0L Cannula 06/19 1400 80 Intake & Output 06/20 1600 06/20 0800 06/20 0000 Intake Total 480 480 Output Total 300 Balance 480 180 Intake, Oral 480 480 Number 0 0 Bowel Movements Output, Urine 300 Patient 220 lb Weight Weight Bed scale Measurement Method Laboratory Tests 06/20 06/19 0638 0608 Chemistry Total Bilirubin (0.2 - 1.3 mg/dL) 0.8 Direct Bilirubin (< 0.4 mg/dL) 0.2 AST (17 - 59 U/L) 35 ALT (21 - 72 U/L) 83 H Alkaline Phosphatase (< 127 U/L) 68 Total Protein (6.3 - 8.2 g/dL) 5.1 L Albumin (3.5 - 5.0 g/dL) 2.6 L Coagulation PT (9.4 - 12.5 SEC) 27.4 H 39.1 H INR (0.90 - 1.17) 2.49 H 3.54 H Impression/Plan Impression/Plan Impression/Plan: CTA IMPRESSION: 1. No CT evidence for acute pulmonary embolism. 2. Status post right upper lobectomy. Enhancement of the soft tissue at the level of the right lung apex. While this may represent granulation tissue in the postoperative setting of possible of locally recurrent malignancy should be additionally considered. 3. Extensive airspace disease throughout the left lung, worsened compared to the CT from 3 days prior. Differential diagnostic considerations would include infectious etiologies versus background edema. Multifocal adenocarcinoma can also have this appearance. 4. 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 5. 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 VTE: negative DICTATED BY: Luis Manuel FRANKLIN,Carmen IMPRESSION 72-year-old male past medical history of COPD not on home oxygen, Locally advanced lung cancer status post right upper lobectomy xrt and chemo and treatment 7 years ago, AAA repair in the past and atrial fibrillation with a loop recorder. He is here from [place] visiting his daughter and for the past week has been having increasing shortness of breath. The family also feels he's been confused and mixing up his medications and generally feeling weak. They brought him in because he fell out of bed and was having visible difficulty breathing. ISsues Resolving Acute hypoxic resp failiure over the week end due to CHF vs worsening amiodarone lung injury in a pt with following issues * Resolving Bilateral pulm infiltrates consistant with multilobar pna (with enterobacter and S. 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 as well as he is was on high dose amiodarone * History of locally advanced Lung ca 6 yrs ago with rt upperlobectomy followed by xrt and chemo now with evidence of dense fibrosis in the rt middle lobe and volume loss * COPD with mild wheezing with mild copd exacerbation, with ongoing smoking * Hypoxic resp failure now improving * Pleural thickening and evidence of pulm fibrosis needs longitudinal follow up * Esophageal thickening with reflux with dysphagia -barium swallow reviewed, MBS showed no sig aspriation risk - needs follow up eval * Pafib with Inital supratherapeutic inr now with very mild hemoptysis (prob related to pulm infiltrate), now with sinus rhythm prob - Inr trending down * Gait imbalance and recent memory loss - needs eval as out pt * B12 def * GEO resolved * Near syncope and a fall initially REC Cont abx levo for 7 days and dc Prednisone 60 mg for 3 days then 5o x 5 / 40 x 5 / 30 for 5 / 20 x 5 then 10 for 5 and then 5 mg for 5 days Reduce oxygen to keep sat of 90-92 Increase activity Discussed with family Will follow as out pt
[2018-06-20 14:15] VITALS: BP 100/66
[2018-06-20 22:31] VITALS: BP 108/66
[2018-06-21 06:34] VITALS: BP 130/68
--- NOTE | 2018-06-21 07:40 | PN- Housestaff ---
Buzz FRANKLIN,Rubina 06/21/18 0739: Subjective Follow-up For: Acute hypoxic respiratory failure secondary to pneumonia/lung cancer recurrence/ COPD/pneumonitis secondary to amiodarone Supratherapeutic INR Swallowing difficulties Hemoptysis Subjective: Patient seen and examined. He states that he feels good and is eager to leave. Plan is to discharge the patient today after his oxygen equipment arrives at his daughter's house and she can bring it here. Review of Systems Constitutional: Reports: no symptoms. Cardiovascular: Reports: no symptoms. Respiratory: Reports: short of breath. Gastrointestinal: Reports: no symptoms. Genitourinary: Reports: no symptoms. Musculoskeletal: Reports: no symptoms. Objective Last 24 Hrs of Vital Signs/I&O Vital Signs Date Time Temp Pulse Resp B/P B/P Pulse O2 O2 Flow FiO2 Mean Ox Delivery Rate 06/21 0849 82 148/60 06/21 0829 95 Nasal 2.0L Cannula 06/21 0800 97.9 82 22 148/60 06/21 0800 93 Nasal 2.0L Cannula 06/21 0634 98.1 71 18 130/68 96 06/20 2231 98.2 82 18 108/66 91 Nasal Cannula 06/20 2015 Nasal 3.0L Cannula 06/20 1907 92 Nasal 3.0L Cannula 06/20 1600 Nasal 3.0L Cannula 06/20 1441 70 06/20 1437 94 Nasal 3.0L Cannula 06/20 1415 97.9 84 20 100/66 93 Nasal Cannula 06/20 1210 70 Intake & Output 06/21 1600 06/21 0800 06/21 0000 Intake Total 320 220 Output Total 200 Balance 320 20 Intake, Oral 320 220 Output, Urine 200 Patient 221 lb Weight Weight Bed scale Measurement Method Physical Exam General Appearance: Alert, Oriented X3, Cooperative, No Acute Distress Skin Temp/Moisture Exam: Warm/Dry HEENT: Atraumatic, EOMI, Mucous Membr. moist/pink Cardiovascular: Regular Rate, Normal S1, Normal S2, No Murmurs Lungs: Clear to Auscultation, Normal Air Movement Abdomen: Normal Bowel Sounds, Soft, No Tenderness Extremities: No Clubbing, No Cyanosis, No Edema Current Medications: Current Medications Sig/Mark Start time Last Medication Dose Route Stop Time Status Admin Albuterol Sulfate 3 ML EVERY 4 HRS/AWAKE 06/14 1600 AC 06/21 INH 1126 Albuterol Sulfate 2 PUF Q4-6 PRN PRN 06/11 1530 AC INH Aspirin 81 MG DAILY 06/15 0900 AC 06/21 PO 0849 Cholecalciferol 1,000 IU DAILY 06/12 1123 AC 06/21 PO 0851 Cyanocobalamin 1,000 MCG DAILY 06/12 1456 AC 06/21 PO 0851 Gabapentin 600 MG BID 06/11 2100 AC 06/21 PO 0849 Guaifenesin 600 MG Q12 06/13 2100 AC 06/21 PO 0849 Lactobacillus 1 CAP DAILY 06/13 1215 AC 06/21 Acidophilus PO 0851 Levofloxacin 500 MG DAILY 06/15 1015 AC 06/21 PO 0851 Midodrine 5 MG BID 06/11 2100 AC 06/21 PO 0850 Mirtazapine 15 MG QPM 06/11 2100 AC 06/20 PO 2243 Omeprazole 20 MG BID 06/11 2100 AC 06/21 PO 0850 Oxycodone/ 1 TAB 1700 PRN 06/14 1700 AC 06/20 Acetaminophen PO 2059 Oxycodone/ 1 TAB DAILY 06/14 1245 AC 06/21 Acetaminophen PO 0852 Prednisone 60 MG DAILY 06/17 0900 AC 06/21 PO 0850 Sodium Chloride 2 SPRAY Q4P PRN 06/18 1330 AC 06/21 DRU 0857 Tamsulosin HCl 0.4 MG DAILY 06/11 1527 AC 06/21 PO 0849 Tizanidine HCl 4 MG QPM PRN 06/11 1530 AC 06/15 PO 1601 Warfarin Sodium 3 MG COUMADIN 1700 06/20 1700 DC 06/20 PO 06/20 2359 1650 Last 24 Hrs of Lab/Franco Results Last 24 Hrs of Labs/Mics: Laboratory Tests 06/21/18 0637: PT 25.3 H, INR 2.30 H Assessment/Plan Assessment: 72 year old male with a PMH significant for COPD, afib, lung cancer sp right upper lobectomy 7 years ago with one year of chemo and radiation, vascular disease sp AAA repair also 7 years ago, afib with implanted loop recorder on Coumadin, that is BIBA for complaints of dyspnea and altered mental status. The patient has been apparently deteriorating over the past couple months, with mild cough with brownish/reddish sputum, on and off dizziness and blurriness of the eyes, and more recently, confusion and unsteadiness on his feet. The patient has also recently had uncontrolled bleeding. He is on Coumadin 4 mg daily and as per his , his pills have been mixed up recently and he may have taken more than the doses been prescribed. The patient was found in the field to be hypoxic and was placed on supplemental oxygen. He was given Solu-Medrol as well as the field. The patient sees a PCP and soaking pit operator in [place], phone numbers in the HPI. Of note, patient is severely allergic to penicillin, has anaphylactic reaction. Vitals in the urgency room were temperature 101.2 which decreased to 99, heart rate 102 which decreased to 90s, respiratory rate 24, blood pressure 125/56, 91% oxygen saturation on 4 L nasal cannula which was tapered down to 2 L, 94% oxygen saturation. Labs showed a WBC count of 9.4 with bandemia, hemoglobin 11.4, no old labs available, creatinine 1.4, BNP 2370, negative troponin, INR 8.09 with repeat INR of 8.43 Chest x-ray showed evidence of remote right upper lobectomy, upper half right hemithorax completely opacified which signifies plural effusion or fibrotic changes or tumor recurrence. Additionally seen was left lower lobe opacity. EKG showed a rate of 100 with a QTC of 470 and flipped P waves significant for ectopic atrial beats. In the ED, patient had blood cultures 2 taken and got 1 dose of moxifloxacin. 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 Chest x-ray shows evidence of pneumonia as well as potential recurrence of cancer/pleural effusionfibrotic changes. The patient was septic with an elevated heart rate and temperature up to 102 on admission with a suspected source of infection being the lung. -Hemoptysis: Patient had 1 episode of hemoptysis with about a teaspoon of blood produced. He recently had brownish reddish sputum for the past few weeks. -Supratherapeutic INR: Patient usually takes 4 mg of warfarin every day was found to have INR over 8 on admission. -Altered mental status and falls: Patient recently had unsteadiness on his feet , confusion, poor memory, and a fall out of bed. -History of lung cancer: Right upper lobe lobectomy 7 years ago with chemotherapy and radiation for 1 year. The patient has not followed up with an oncologist for several years. -Dysphagia: Patient notices difficulty in swallowing pills, no issues with swallowing food or drink. -History of A. fib with implanted loop recorder: Patient sees a soaking pit operator and EP down in [place], has an appointment with them in about one month. The patient is on warfarin for anticoagulation and amiodarone. He also has implantable loop recorder. Plan -We transferred the patient to telemetry for continuous pulse ox monitoring as well as cardiac monitoring as he acutely decompensated over the past weekend -Chest x-ray done during the weekend after decompensation was largely unchanged from prior. Troponins negative EKGs no evidence of ACS, BNP unchanged. -Repeat chest x-ray done last night showed stable chronic changes of dense consolidation volume loss in the right upper hemithorax status post right upper lobectomy for cancer. No acute change of the chest. -Patient respiratory cultures returned positive for Enterobacter and stenotrophomonas that was sensitive namely to Levaquin. Moxifloxacin would likely cover these bugs but over the weekend antibiotic coverage was switched to Levaquin 500 mg daily. We will continue this for today and then stop. -Plan per pulmonology is to do a slow taper of patient's 60 mg prednisone for 5 days followed by 50 mg for 5 days, 40 for 5 days, 30 for 5 days, 20 for 5 days, 10 for 5 days, 5 for 5 days and then stop. -We have stopped giving Lasix and will hold outpatient -For the patient's acute kidney injury we gave 1 bag of normal saline to good effect on admission and have not had any problems since. -Echocardiogram done over the weekend showed stage II diastolic dysfunction and an ejection fraction of 55%. -Patient's loop recorder was interrogated last week and showed previous pauses and bouts of A. fib in early May, nothing recently. These were found while patient was on 200 mg twice a day of amiodarone. We decreased the patient's amiodarone dose because of potential pulmonary toxicity that has occurred from twice daily to once a day. However now for further concern, we will stop amiodarone. We will defer to cardiology to consider MultAQ or another rhythm medication. -On admission we ordered CT head without contrast as patient has supratherapeutic INR and did fall earlier prior to admission. It showed no acute intracranial abnormality. -On admission we ordered CT of the chest without contrast as patient has a history of lung cancer, recurrent hemoptysis, and question of recurrence of mass on his chest x-ray. CT chest showed dense fibrosis and volume loss in the superior segments of the right lower and middle lobes near the apex of the right hemithorax consistent with prior radiation. No superimposed lesions were found. Also found was patchy multifocal groundglass airspace opacities with small consolidative/solid components possibly due to multifocal pneumonia or multifocal adenocarcinoma in situ. There are finally areas of subtle interlobular septal thickening suggesting early fibrotic change also likely related to prior asbestos exposure. We are treating the patient for the pneumonia and he will likely require a repeat CT scan after 4-6 weeks to evaluate for any cancer recurrence. Patient had a repeat CT, CTA when he acutely decompensated and it showed extensive airspace disease through the left lung that was worsened from his CT 3 days prior. -Urine Legionella and strep negative -CBC was stable despite patient's hemoptysis. Patient is currently back on his blood thinning medications Coumadin and aspirin as he has no longer had episodes of hemoptysis. -We gave vitamin K for admission INR of 8.43 and INR decreased to less than 2 last week. We restarted the patient's Coumadin and his INR is between 2-3 on between 3 mg and 4 mg of Coumadin. Will continue 4 mg of Coumadin which was his home dose and he can follow-up with his soaking pit operator for INR readings and readjustment of Coumadin -Patient was cleared with swallow evaluation but CT scan showed reflux of food into the upper esophagus. Speech and swallow suggested normal diet but taking pills with apple sauce. Patient will need to follow-up with banking consultant when he is back in [place]. -Physical therapy consult as patient has had recent unsteadiness on his feet overnight and required an assist of 2. Yesterday on evaluation he is better and PT is recommending rolling walker at home and 2-3 times of physical therapy per week. -Patient will need follow up with his doctor as he was found to have low TSH and T3 indicative of amiodarone effects. He will need follow up LFTs and TFTs q3-6 months if he is put back on amiodarone. He is currently off amiodarone. He will be reevaluated by his soaking pit operator for a replacement therapy. -Carotid ultrasound showed hemodynamically significant stenosis in left external carotid artery and he will need to follow up with his PCP for a vascular consult one he arrives back in [place]. -Plan today is to discharge patient home after his daughter brings the oxygen compressor that will be delivered to her house today. Full Code Heart healthy diet DVT prophylaxis with Alps and coumadin Problem List: 1. Paroxysmal A-fib 2. COPD (chronic obstructive pulmonary disease) 3. Acute respiratory failure with hypoxia Pain Ratin Pain Location: NA Pain Goal: Remain pain free Pain Plan: NA Tomorrow's Labs & Rationales: NA Consulting Request: Consulting Physician: Dr. Ann, Pulmonary Dr. Gamble, Cardiology Dr. Cifuentes, [place] Reason for Consult: Pneumonia, respiratory failure, PAF Regino FRANKLIN,Letitia 06/21/18 1029: Attending MD Review Statement Attending Statement Attending MD Statement: examined this patient, discuss w/resident/PA/DIGITAL PRODUCTION MANAGER, agreed w/resident/PA/DIGITAL PRODUCTION MANAGER, reviewed EMR data (avail), discussed with nursing, reviewed images Attending Assessment/Plan: Pt is feeling well and eager to leave. He is a 72-year-old male with a past medical history of atrial fibrillation, COPD and previous lung cancer who has had a long hospital course for a gram-negative- stenotrophomonas and Enterobacter pneumonia. He has a few more days left to finish his levofloxacin course. He is going to leave today with an oxygen concentrator with a plan to fly out to [place] next week where he gets his usual medical care. He takes Coumadin and his INR is therapeutic. He is leaving on a long prednisone taper and his daughter and his understand the need for close outpatient follow-up given all of his competing and significant medical issues.
[2018-06-21 08:00] VITALS: BP 148/60
[2018-06-21 08:45] LABS: PT 25.3 SEC (9.4-12.5)
[2018-06-21 08:49] VITALS: BP 148/60
--- NOTE | 2018-06-21 12:35 | PN- Pulmonary ---
Subjective HPI/Critical Care Issues: Patient seen and examined. He states that he feels good and is eager to leave. Plan is to discharge the patient today after his oxygen equipment arrives at his daughter's house and she can bring it here. Review of Systems Constitutional: Reports: no symptoms. Cardiovascular: Reports: no symptoms. Respiratory: Reports: short of breath. Gastrointestinal: Reports: no symptoms. Genitourinary: Reports: no symptoms. Musculoskeletal: Reports: no symptoms. Objective Current Medications: Current Medications Sig/Mark Start time Last Medication Dose Route Stop Time Status Admin Albuterol Sulfate 3 ML EVERY 4 HRS/AWAKE 06/14 1600 AC 06/21 INH 1126 Albuterol Sulfate 2 PUF Q4-6 PRN PRN 06/11 1530 AC INH Aspirin 81 MG DAILY 06/15 0900 AC 06/21 PO 0849 Cholecalciferol 1,000 IU DAILY 06/12 1123 AC 06/21 PO 0851 Cyanocobalamin 1,000 MCG DAILY 06/12 1456 AC 06/21 PO 0851 Gabapentin 600 MG BID 06/11 2100 AC 06/21 PO 0849 Guaifenesin 600 MG Q12 06/13 2100 AC 06/21 PO 0849 Lactobacillus 1 CAP DAILY 06/13 1215 AC 06/21 Acidophilus PO 0851 Levofloxacin 500 MG DAILY 06/15 1015 AC 06/21 PO 0851 Midodrine 5 MG BID 06/11 2100 AC 06/21 PO 0850 Mirtazapine 15 MG QPM 06/11 2100 AC 06/20 PO 2243 Omeprazole 20 MG BID 06/11 2100 AC 06/21 PO 0850 Oxycodone/ 1 TAB 1700 PRN 06/14 1700 AC 06/20 Acetaminophen PO 2059 Oxycodone/ 1 TAB DAILY 06/14 1245 AC 06/21 Acetaminophen PO 0852 Prednisone 60 MG DAILY 06/17 0900 AC 06/21 PO 0850 Sodium Chloride 2 SPRAY Q4P PRN 06/18 1330 AC 06/21 DRU 0857 Tamsulosin HCl 0.4 MG DAILY 06/11 1527 AC 06/21 PO 0849 Tizanidine HCl 4 MG QPM PRN 06/11 1530 AC 06/15 PO 1601 Warfarin Sodium 3 MG COUMADIN 1700 06/20 1700 DC 06/20 PO 06/20 2359 1650 Vital Signs & I&O Last 24 Hrs of Vitals and I&O: Vital Signs Date Time Temp Pulse Resp B/P B/P Pulse O2 O2 Flow FiO2 Mean Ox Delivery Rate 06/21 0849 82 148/60 06/21 0829 95 Nasal 2.0L Cannula 06/21 0800 97.9 82 22 148/60 06/21 0800 93 Nasal 2.0L Cannula 06/21 0634 98.1 71 18 130/68 96 06/20 2231 98.2 82 18 108/66 91 Nasal Cannula 06/20 2015 Nasal 3.0L Cannula 06/20 1907 92 Nasal 3.0L Cannula 06/20 1600 Nasal 3.0L Cannula 06/20 1441 70 06/20 1437 94 Nasal 3.0L Cannula 06/20 1415 97.9 84 20 100/66 93 Nasal Cannula Intake & Output 06/21 1600 06/21 0800 06/21 0000 Intake Total 320 220 Output Total 200 Balance 320 20 Intake, Oral 320 220 Output, Urine 200 Patient 221 lb Weight Weight Bed scale Measurement Method Laboratory Tests 06/21 06/20 0637 0638 Coagulation PT (9.4 - 12.5 SEC) 25.3 H 27.4 H INR (0.90 - 1.17) 2.30 H 2.49 H Impression/Plan Impression/Plan Impression/Plan: CTA IMPRESSION: 1. No CT evidence for acute pulmonary embolism. 2. Status post right upper lobectomy. Enhancement of the soft tissue at the level of the right lung apex. While this may represent granulation tissue in the postoperative setting of possible of locally recurrent malignancy should be additionally considered. 3. Extensive airspace disease throughout the left lung, worsened compared to the CT from 3 days prior. Differential diagnostic considerations would include infectious etiologies versus background edema. Multifocal adenocarcinoma can also have this appearance. 4. 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 5. 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 VTE: negative DICTATED BY: Carmen Issa MD IMPRESSION 72-year-old male past medical history of COPD not on home oxygen, Locally advanced lung cancer status post right upper lobectomy xrt and chemo and treatment 7 years ago, AAA repair in the past and atrial fibrillation with a loop recorder. He is here from [place] visiting his daughter and for the past week has been having increasing shortness of breath. The family also feels he's been confused and mixing up his medications and generally feeling weak. They brought him in because he fell out of bed and was having visible difficulty breathing. ISsues Resolving Acute hypoxic resp failiure over the week end due to CHF vs worsening amiodarone lung injury in a pt with following issues * Resolving Bilateral pulm infiltrates consistant with multilobar pna (with enterobacter and S. 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 NOw held on a steroid taper and improving * History of locally advanced Lung ca 6 yrs ago with rt upperlobectomy followed by xrt and chemo now with evidence of dense fibrosis in the rt middle lobe and volume loss * COPD with mild wheezing with mild copd exacerbation, with ongoing smoking * Hypoxic resp failure now improving * Pleural thickening and evidence of pulm fibrosis needs longitudinal follow up * Esophageal thickening with reflux with dysphagia -barium swallow reviewed, MBS showed no sig aspriation risk - needs follow up eval * Pafib with Inital supratherapeutic inr now with very mild hemoptysis (prob related to pulm infiltrate), now with sinus rhythm prob - Inr trending down * Gait imbalance and recent memory loss - needs eval as out pt * B12 def * GEO resolved * Near syncope and a fall initially upon admission now resolved REC Cont abx levo for 7 days total and dc Prednisone 60 mg for 2 days then 5o x 5 / 40 x 5 / 30 for 5 / 20 x 5 then 10 for 5 and then 5 mg for 5 days Reduce oxygen to keep sat of 90-92 Increase activity Discussed with family Will follow as out pt
== END 2018-06-21 13:50 | DRG 177 ==
LOC: ERH 07:45 → 2NB 10:22 → ERHI 10:22 → ENRESERV 14:26 → CANRESERV 14:26 → ENRESERV 14:31 → ENTRNSPT 15:58 → EDTRNSPTSTS 16:06 → EDTRNSPT 16:06 → 2NB 16:18 → EDTRNSPT 16:23 → CMPTRNSPT 16:28 → 1NO 06-14 09:36 → ENPENDDIS 06-21 08:38 → ENTRNSPT 06-21 13:41 → EDTRNSPTSTS 06-21 13:48 → 1NO 06-21 13:50 → CMPTRNSPT 06-21 14:45
PROVIDERS: Emergency Medicine; Student in an Organized Health Care Education/Training Program
DX: J15.6 Pneumonia due to other Gram-negative bacteria (principal); J96.01 Acute respiratory failure with hypoxia; J44.0 Chronic obstructive pulmonary disease with (acute) lower respiratory infection; J44.1 Chronic obstructive pulmonary disease with (acute) exacerbation; R04.2 Hemoptysis; N17.9 Acute kidney failure, unspecified; I50.32 Chronic diastolic (congestive) heart failure; J84.10 Pulmonary fibrosis, unspecified; R13.10 Dysphagia, unspecified; I25.10 Atherosclerotic heart disease of native coronary artery without angina pectoris; I48.0 Paroxysmal atrial fibrillation; J15.8 Pneumonia due to other specified bacteria; R00.1 Bradycardia, unspecified; E66.3 Overweight; Z68.30 Body mass index [BMI] 30.0-30.9, adult; R26.89 Other abnormalities of gait and mobility; K21.9 Gastro-esophageal reflux disease without esophagitis; T46.2X5A Adverse effect of other antidysrhythmic drugs, initial encounter; Z85.118 Personal history of other malignant neoplasm of bronchus and lung; Z88.0 Allergy status to penicillin; F17.210 Nicotine dependence, cigarettes, uncomplicated; Z95.818 Presence of other cardiac implants and grafts; Z92.21 Personal history of antineoplastic chemotherapy; Z79.01 Long term (current) use of anticoagulants
CPT/HCPCS: 1NP; 2NBSP; 36415; 36592; 71045; 74220; 74230; 81001; 82436; 87040; 87070; 87389; 87449; 87450; 93005; 93010; 93306; 97110-GO; 97116-GO; 97161-GP; 97164-GP; 97530-GO; 99291; J1940; J2280; J2920; J2930; J3490; J7512